=== PATIENT | female | born 1990 | race Caucasian/White ===

== ENCOUNTER 2018-07-01 11:34 | Inpatient (IN) ==
[~2018-07-01 11:34] MED LIST: NICOTINE 14 MG PATCH TOPICAL SCH
[2018-07-01] MEDS ORDERED: IOPAMIDOL 100 ML BOTTLE IV ONE (11:35)
[2018-07-01] MEDS ORDERED: MIDAZOLAM 5 MG/5 ML VIAL IV ONE (11:57)
[2018-07-01] MEDS ORDERED: DIAZEPAM 5 MG/ML VIAL IV ONE (12:01)
[2018-07-01] MEDS ORDERED: DIAZEPAM 5 MG/ML VIAL IV PRN ×3 (12:16→16:15)
--- NOTE | 2018-07-01 12:25 | Emergency Department Note ---
Alcohol HPI - General Chief Complaint: Alcohol Stated Complaint: alcohol withdrawal Time Seen by Provider: 07/01/18 11:40 Source: patient Mode of arrival: ambulatory Limitations: no limitations - History of Present Illness HPI Narrative: 28-year-old female in ED today for alcohol withdrawal. Patient states she has been a heavy drinker for at least the last year, drinking 1/5 a day hard alcohol. She did drink prior to the last year that it was not as heavy. Patient states she decided to quit drinking because she wants to be around for her children to grow up. She has a 4-year-old and a 5-year-old. Patient's last drink was 2 days ago. Patient has been vomiting. Patient has been restless and last night she was unable to sleep due to the increased pain in her abdomen. Patient states she does not a history of drug abuse. She does smoke cigarettes. Patient states she is allergic to Toradol and Sumatriptan and does not currently take medications other than [id number] Benadryl recently. Patient states she has had pancreatitis in October 2017. MD complaint: alcohol withdrawal Last Drink: days (ago) (2) Chronic Alcohol Use: Yes (1/5 per day for last year) Previous Visits for Alcohol Intoxication?: No Recent Trauma: No Associated symptoms: Reports: nausea, vomiting, tremors, abdominal pain Treatments prior to arrival: other (Benadryl) - Related Data Home Medications Medication Instructions Recorded Confirmed Gabapentin 06/28/18 Allergies Allergy/AdvReac Type Severity Reaction Status Date / Time Blueberry Allergy Severe Anaphylaxis Verified 07/01/18 11:39 tramadol Allergy Severe Dizziness Verified 07/01/18 11:39 sumatriptan [From Imitrex] Allergy Verified 07/01/18 11:39 Review of Systems Constitutional: Reports: chills. Denies: fever, weakness Eyes: Denies: eye pain, eye discharge ENT ED: Denies: ear pain, throat pain, dental pain, congestion Cardiovascular: Reports: palpitations. Denies: chest pain, edema Respiratory: Denies: shortness of breath, cough, wheezes Gastrointestinal: Reports: abdominal pain, nausea, vomiting. Denies: diarrhea, constipation Genitourinary: Denies: dysuria, urgency Musculoskeletal: Reports: back pain. Denies: joint swelling, joint pain Integumentary: Denies: rash, lesions, change in color Neurological: Denies: headache, weakness, numbness Psychiatric: Reports: anxiety, depression Endocrine: Denies: fatigue, polydipsia Hematological/Lymphatic: Reports: easy bruising. Denies: easy bleeding, lymphadenopathy Allergic/Immunologic: Denies: facial swelling, urticaria Past Medical History - Past Medical History Medical history: Reports: migraine, other (pancreatitis (Oct 2017).). Denies: cancer, DM, hypertension Surgical history ED: Reports: no surgical history - Social History smoking status: Current every day smoker Alcohol use: Reports: Heavy, Recent Drug use: Reports: none Physical Exam Limitations: no limitations General appearance: alert, anxious, in distress Head: atraumatic, normocephalic, normal inspection Eye: Present: normal appearance, PERRL. Absent: conjunctival injection ENT: normal exam, normal oropharynx, mucous membranes moist, TM's normal bilaterally, normal external ear exam Neck: Present: normal inspection, full ROM. Absent: tenderness, meningismus, lymphadenopathy Chest: Present: normal inspection, symmetric chest wall rise. Absent: tenderness Respiratory: Present: normal lung sounds bilaterally. Absent: respiratory distress, rales/crackles, wheezes Cardiovascular: Present: tachycardia. Absent: systolic murmur, diastolic murmur Abdominal: Present: soft, distention, tenderness (periumbilical suprapubic), diminished bowel sounds. Absent: guarding, rebound, rigidity Abdominal tenderness: Present: suprapubic, amber umbilical Extremities: Present: normal inspection. Absent: tenderness Back: Present: normal inspection, tenderness, CVA tenderness (R), CVA tenderness (L) Neurological: Present: alert, oriented X3, normal gait Psychiatric: Present: normal affect, normal mood, agitated, anxious. Absent: depressed Skin: Present: warm, dry, intact, normal color, other (slightly jaundice with small bruises multiple stages all over). Absent: cyanosis, diaphoresis, erythema Course Vital Signs Temperature 97.2 F 07/01/18 11:36 Pulse Rate 148 H 07/01/18 11:36 Respiratory Rate 24 H 07/01/18 11:36 Blood Pressure 140/88 07/01/18 11:36 Pulse Oximetry (%) 100 07/01/18 11:36 Temperature 97.2 F 07/01/18 11:36 Pulse Rate 118 H 10/09/18 15:15 Respiratory Rate 21 07/01/18 15:15 Blood Pressure 155/98 07/01/18 15:15 Pulse Oximetry (%) 100 07/01/18 15:15 Alcohol - MDM Narrative Medical decision making narrative: Upon patient arrival administered 1000 ml normal saline bolus along with diazepam 5-10 mg every 5-10 minutes until she reached decreased psychomotor tremors, she received total of 25 mg and then switched to 1 mg Ativan which helped getting control of symptoms. Patient also received Zofran for nausea. Patient continued to express need for pain relief of abdominal pain and requested pain medication. Provided 0.5 mg hydromorphone and this was adequate control. Total 2000 mL normal saline administered and third bag hung prior to admission to the floor. Consulted Dr. Rosas on patient's labs and current history, Dr. Rosas advised CT abdomen with IV contrast. Dr. Capps consulted on admissions intently accepted patient. - Lab Data Lab results reviewed: Yes I reviewed the patient's lab results. Result diagrams: 07/01/18 12:18 07/01/18 12:18 Lab Results 07/01/18 07/01/18 07/01/18 Range/Units 12:17 12:17 12:18 WBC 6.1 (4.5-11.0) K/mcL RBC 4.34 (4.00-5.20) M/mcL Hgb 15.6 H (12.0-15.0) g/dL Hct 46.2 (36.0-48.0) % MCV 106.4 H (80.0-100.0) fL MCH 35.9 H (26.0-34.0) pg MCHC 33.8 (31.0-36.0) g/dL RDW 14.6 H (11.5-14.5) % Plt Count 117 L (140-440) K/mcL MPV 8.1 (7.4-10.4) fL Gran % 76.6 (38.0-78.0) % Lymph % (Auto) 12.5 L (15.5-49.0) % [place] % (Auto) 10.6 (1.0-12.0) % Eos % (Auto) 0.2 (0.0-7.0) % Baso % (Auto) 0.1 (0.0-2.0) % Gran # 4.6 (1.8-8.0) K/mcL Lymph # (Auto) 0.8 L (1.5-4.8) K/mcL [place] # (Auto) 0.6 (0.1-0.9) K/mcL Eos # (Auto) 0 (0.0-0.7) K/mcL Baso # (Auto) 0 (0.0-0.3) K/mcL PT 13.6 (11.9-14.5) sec INR 1.0 (0.9-1.1) VBG Lactic Acid (0.5-2.2) mmol/L Sodium (133-145) mmol/L Potassium (3.3-5.1) mmol/L Chloride (96-108) mmol/L Carbon Dioxide (22-30) mmol/L Anion Gap (8-16) BUN (6-20) mg/dl Creatinine (0.6-1.1) mg/dl GFR Calculation Glucose (70-105) mg/dL Osmolality (280-300) mOSM/kg Calcium (8.6-10.4) mg/dl Phosphorus (2.7-4.5) mg/dL Magnesium (1.6-2.5) mg/dL Total Bilirubin (0.0-1.0) mg/dL AST (0-37) U/l ALT Alkaline Phosphatase Total Creatine Kinase (24-170) IU/L CK-MB (CK-2) (0-2.9) ng/ml Troponin T < 0.01 (0-0.03) ng/ml Total Protein (5.9-8.4) gm/dL Albumin (3.2-5.2) gm/dL Globulin (2.2-3.7) gm/dL Albumin/Globulin Ratio (1.0-2.3) Amylase (28-100) U/L Lipase (7-60) U/L Urine Color Urine Appearance Urine pH (5.0-9.0) Ur Specific [place] (1.000-1.035) Urine Protein (NEG) mg/dL Urine Glucose (UA) (NEG) mg/dL Urine Ketones (NEG) mg/dL Urine Occult Blood (<0.03) mg/dL Urine Nitrate (NEG) Urine Bilirubin (NEG) mg/dL Urine Urobilinogen (NEG) mg/dL Ur Leukocyte Esterase (NEG) /uL Urine RBC (0-1) /hpf Urine WBC (0-4) /hpf Ur Squamous Epith Cells (0-4) /hpf Urine Bacteria (0) /hpf Hyaline Casts (0-2) /lpf Urine Mucus (0) /hpf Ur Culture Indicated? Urine Opiates Screen (NONDETECTED) Ur Oxycodone Screen (NONDETECTED) Urine Methadone Screen (NONDETECTED) Ur Barbiturates Screen (NONDETECTED) Ur Phencyclidine Scrn (NONDETECTED) Ur Amphetamines Screen (NONDETECTED) U Benzodiazepines Scrn (NONDETECTED) Urine Cocaine Screen (NONDETECTED) U Marijuana (THC) Screen (NONDETECTED) 07/01/18 07/01/18 07/01/18 Range/Units 12:18 12:18 13:46 WBC (4.5-11.0) K/mcL RBC (4.00-5.20) M/mcL Hgb (12.0-15.0) g/dL Hct (36.0-48.0) % MCV (80.0-100.0) fL MCH (26.0-34.0) pg MCHC (31.0-36.0) g/dL RDW (11.5-14.5) % Plt Count (140-440) K/mcL MPV (7.4-10.4) fL Gran % (38.0-78.0) % Lymph % (Auto) (15.5-49.0) % [place] % (Auto) (1.0-12.0) % Eos % (Auto) (0.0-7.0) % Baso % (Auto) (0.0-2.0) % Gran # (1.8-8.0) K/mcL Lymph # (Auto) (1.5-4.8) K/mcL [place] # (Auto) (0.1-0.9) K/mcL Eos # (Auto) (0.0-0.7) K/mcL Baso # (Auto) (0.0-0.3) K/mcL PT (11.9-14.5) sec INR (0.9-1.1) VBG Lactic Acid (0.5-2.2) mmol/L Sodium 130 L (133-145) mmol/L Potassium 4.4 (3.3-5.1) mmol/L Chloride 87 L (96-108) mmol/L Carbon Dioxide 7 L* (22-30) mmol/L Anion Gap 36.0 H (8-16) BUN 8 (6-20) mg/dl Creatinine 0.8 (0.6-1.1) mg/dl GFR Calculation 100 Glucose 139 H (70-105) mg/dL Osmolality 291 (280-300) mOSM/kg Calcium 10.0 (8.6-10.4) mg/dl Phosphorus 1.1 L (2.7-4.5) mg/dL Magnesium 1.8 (1.6-2.5) mg/dL Total Bilirubin 1.3 H (0.0-1.0) mg/dL AST 307 H (0-37) U/l ALT TNP 139 H Alkaline Phosphatase TNP 131 H Total Creatine Kinase 57 (24-170) IU/L CK-MB (CK-2) 1.4 (0-2.9) ng/ml Troponin T (0-0.03) ng/ml Total Protein 9.4 H (5.9-8.4) gm/dL Albumin 5.7 H (3.2-5.2) gm/dL Globulin 3.7 (2.2-3.7) gm/dL Albumin/Globulin Ratio 1.5 (1.0-2.3) Amylase 117 H (28-100) U/L Lipase 512 H (7-60) U/L Urine Color Urine Appearance Urine pH (5.0-9.0) Ur Specific [place] (1.000-1.035) Urine Protein (NEG) mg/dL Urine Glucose (UA) (NEG) mg/dL Urine Ketones (NEG) mg/dL Urine Occult Blood (<0.03) mg/dL Urine Nitrate (NEG) Urine Bilirubin (NEG) mg/dL Urine Urobilinogen (NEG) mg/dL Ur Leukocyte Esterase (NEG) /uL Urine RBC (0-1) /hpf Urine WBC (0-4) /hpf Ur Squamous Epith Cells (0-4) /hpf Urine Bacteria (0) /hpf Hyaline Casts (0-2) /lpf Urine Mucus (0) /hpf Ur Culture Indicated? Urine Opiates Screen (NONDETECTED) Ur Oxycodone Screen (NONDETECTED) Urine Methadone Screen (NONDETECTED) Ur Barbiturates Screen (NONDETECTED) Ur Phencyclidine Scrn (NONDETECTED) Ur Amphetamines Screen (NONDETECTED) U Benzodiazepines Scrn (NONDETECTED) Urine Cocaine Screen (NONDETECTED) U Marijuana (THC) Screen (NONDETECTED) 07/01/18 07/01/18 07/01/18 Range/Units 13:54 13:57 13:57 WBC (4.5-11.0) K/mcL RBC (4.00-5.20) M/mcL Hgb (12.0-15.0) g/dL Hct (36.0-48.0) % MCV (80.0-100.0) fL MCH (26.0-34.0) pg MCHC (31.0-36.0) g/dL RDW (11.5-14.5) % Plt Count (140-440) K/mcL MPV (7.4-10.4) fL Gran % (38.0-78.0) % Lymph % (Auto) (15.5-49.0) % [place] % (Auto) (1.0-12.0) % Eos % (Auto) (0.0-7.0) % Baso % (Auto) (0.0-2.0) % Gran # (1.8-8.0) K/mcL Lymph # (Auto) (1.5-4.8) K/mcL [place] # (Auto) (0.1-0.9) K/mcL Eos # (Auto) (0.0-0.7) K/mcL Baso # (Auto) (0.0-0.3) K/mcL PT (11.9-14.5) sec INR (0.9-1.1) VBG Lactic Acid 0.8 (0.5-2.2) mmol/L Sodium (133-145) mmol/L Potassium (3.3-5.1) mmol/L Chloride (96-108) mmol/L Carbon Dioxide (22-30) mmol/L Anion Gap (8-16) BUN (6-20) mg/dl Creatinine (0.6-1.1) mg/dl GFR Calculation Glucose (70-105) mg/dL Osmolality (280-300) mOSM/kg Calcium (8.6-10.4) mg/dl Phosphorus (2.7-4.5) mg/dL Magnesium (1.6-2.5) mg/dL Total Bilirubin (0.0-1.0) mg/dL AST (0-37) U/l ALT Alkaline Phosphatase Total Creatine Kinase (24-170) IU/L CK-MB (CK-2) (0-2.9) ng/ml Troponin T (0-0.03) ng/ml Total Protein (5.9-8.4) gm/dL Albumin (3.2-5.2) gm/dL Globulin (2.2-3.7) gm/dL Albumin/Globulin Ratio (1.0-2.3) Amylase (28-100) U/L Lipase (7-60) U/L Urine Color Yellow Urine Appearance Clear Urine pH 6.0 (5.0-9.0) Ur Specific [place] 1.011 (1.000-1.035) Urine Protein 100 A (NEG) mg/dL Urine Glucose (UA) Negative (NEG) mg/dL Urine Ketones 80 A (NEG) mg/dL Urine Occult Blood 0.2 A (<0.03) mg/dL Urine Nitrate Neg (NEG) Urine Bilirubin Neg (NEG) mg/dL Urine Urobilinogen Neg (NEG) mg/dL Ur Leukocyte Esterase Neg (NEG) /uL Urine RBC 9 H (0-1) /hpf Urine WBC 1 (0-4) /hpf Ur Squamous Epith Cells 2 (0-4) /hpf Urine Bacteria 0 (0) /hpf Hyaline Casts 12 H (0-2) /lpf Urine Mucus Few (0) /hpf Ur Culture Indicated? No Urine Opiates Screen None detected (NONDETECTED) Ur Oxycodone Screen None detected (NONDETECTED) Urine Methadone Screen None detected (NONDETECTED) Ur Barbiturates Screen None detected (NONDETECTED) Ur Phencyclidine Scrn None detected (NONDETECTED) Ur Amphetamines Screen None detected (NONDETECTED) U Benzodiazepines Scrn None detected (NONDETECTED) Urine Cocaine Screen None detected (NONDETECTED) U Marijuana (THC) Screen None detected (NONDETECTED) - Radiology Data Radiology results reviewed: Yes I reviewed the patient's radiology results. Abdominal US- Mildly enlarged, hyperechoic liver compatible fatty change or other diffuse hepatocellular process. Gallbladder, bile ducts and pancreas are normal Abdominal CT with IV contrast- 1. Pancreas is unremarkable - no evidence of pancreatitis 2. Moderate hepatomegaly with diffuse fatty change. The infrahepatic IVC and proximal hepatic veins are narrowed on today's study which may indicate evolvement from alcoholic hepatitis to cirrhosis. - EKG Data EKG attestation: Yes I reviewed and interpreted this EKG. EKG shows normal: sinus rhythm Rate: tachycardia [place]/QRS: normal Disposition Pt seen by B[employer]K T[employer] DRIVER/PA only: No ([employer]) Clinical Impression: Alcohol withdrawal syndrome, Alcoholic hepatitis without ascites Disposition: Xfer As Inpt ([facility]) Condition: Fair Time of Disposition: 15:24
[2018-07-01] MEDS: DIAZEPAM 5 MG/ML VIAL IV PRN ×5 (12:27→17:13)
[2018-07-01] MEDS ORDERED: 0.9 % SODIUM CHLORIDE 1,000 ML IV ONE ×2 (12:36→13:45)
[2018-07-01 12:44] LABS: Basophils # (Auto) 0 K/mcL (0.0-0.3); Basophils % (Auto) 0.1 % (0.0-2.0); Eosinophils # (Auto) 0 K/mcL (0.0-0.7); Eosinophils % (Auto) 0.2 % (0.0-7.0); Granulocytes % (Auto) 76.6 % (38.0-78.0); Lymphocytes # (Auto) 0.8 K/mcL (1.5-4.8); Lymphocytes % (Auto) 12.5 % (15.5-49.0); Mean Cell Volume 106.4 fL (80.0-100.0); Mean Corpuscular HGB Conc 33.8 g/dL (31.0-36.0); Mean Corpuscular Hemoglobin 35.9 pg (26.0-34.0); Monocytes # (Auto) 0.6 K/mcL (0.1-0.9); Monocytes % (Auto) 10.6 % (1.0-12.0); Platelet Count 117 K/mcL (140-440); RBC 4.34 M/mcL (4.00-5.20); Red Cell Distribution Width 14.6 % (11.5-14.5)
[2018-07-01] MEDS ORDERED: ONDANSETRON 4 MG/2 ML VIAL IV ONE ×2 (13:03→13:41)
[2018-07-01 13:07] LABS: Creatine Kinase MB 1.4 ng/ml (0-2.9)
[2018-07-01 13:26] LABS: Albumin 5.7 gm/dL (3.2-5.2); Albumin/Globulin Ratio 1.5 (1.0-2.3); Amylase 117 U/L (28-100); Blood Urea Nitrogen 8 mg/dl (6-20); Creatine Kinase 57 IU/L (24-170); Lipase 512 U/L (7-60)
[2018-07-01] MEDS ORDERED: LORazepam 2 MG/ML VIAL IV ONE (13:41)
[2018-07-01] MEDS ORDERED: HYDROmorphone 2 MG/ML VIAL IV ONE (14:05)
--- NOTE | 2018-07-01 14:36 | XRay Report ---
CLINICAL INFORMATION: Alcohol withdrawal COMPARISON: None. FINDINGS: The heart size, mediastinum and pulmonary vessels are unremarkable. The lungs are clear. There are no effusions. The bones and soft tissues are within normal limits. IMPRESSION: Normal chest. Interpreted and Authenticated by: Messi Carey 07/01/18
--- NOTE | 2018-07-01 14:38 | Ultrasound Report ---
CLINICAL INFORMATION: Alcohol use COMPARISON: Abdomen and pelvic CT to three 2018 FINDINGS: Mild hepatomegaly noted within the liver measuring 18 x 17 cm. Liver is diffusely hyperechoic compatible with fatty change. No focal hepatic lesions. The gallbladder and bile ducts are normal - CBD is 4 mm. The pancreas is unremarkable. IMPRESSION: Mildly enlarged, hyperechoic liver compatible fatty change or other diffuse hepatocellular process. Gallbladder, bile ducts and pancreas are normal Interpreted and Authenticated by: Messi Carey 07/01/18
--- NOTE | 2018-07-01 14:39 | Internal Med History&Physical ---
Medical - H&P: HPI Patient information: Note initiated : 07/01/18 at 2:35 pm Service Date, if different from initiated Date: [] Patient: Leanne Turcios a 28 y/o F admitted on for Alcohol Withdrawl. Chief Complaint: [] History of present illness: Ms. Turcios is a 28 year old F With a history of alcohol abuse who reports quitting about 2 days ago. Prior to that she had been drinking about 1/5 of hard liquor daily. She realized that if she continue drinking that way she would likely not live to see her children grow up. She stopped several days ago and the next day she started feeling shaky, agitated she had fevers chills palpitations described as racing heart rash that she developed nausea vomiting abdominal pain which was a severe throbbing pain radiating around to the back. Vomitus was bile colored. She is been unable to sleep. Patient seen in the ER evaluated for alcohol withdrawal felt to have pancreatitis and workup had electrolyte abnormalities associated with her condition. Was given several boluses of IV fluids benzodiazepines and pain control. She also reports having episode of pancreatitis in October of this year. She has been unable to keep anything down for the past couple days as far as food and drink. Review of Systems: Positive for nausea vomiting fever chills agitation racing heart nausea vomiting , abdominal pain. Negative for chest pain shortness of breath diarrhea constipation remaining 10 point review of systems reviewed negative Medical - H&P: PMH Medical history: History of migraines and tobacco abuse Surgical history: None Pertinent family history: Mother had psychiatric conditions Father's history is unknown per patient Social history: Patient smokes half pack of cigarettes per day Has been drinking 1/5 of hard alcohol daily Smokes marijuana on occasion Lives with dad currently Medical - H&P: Meds Home Medications Medication Instructions Recorded Confirmed Type Gabapentin 06/28/18 History Allergies Allergy/AdvReac Type Severity Reaction Status Date / Time Blueberry Allergy Severe Anaphylaxis Verified 07/01/18 11:39 tramadol Allergy Severe Dizziness Verified 07/01/18 11:39 sumatriptan [From Imitrex] Allergy Verified 07/01/18 11:39 Medical - H&P: Exam - Constitutional Vitals: Temp Pulse Resp BP Pulse Ox 97.2 F 110 H 14 131/100 100 07/01/18 11:36 07/01/18 14:22 07/01/18 13:46 07/01/18 13:46 07/01/18 14:22 Medical - H&P: Reslt - Labs CBC & Chem 7: 07/01/18 12:18 07/01/18 12:18 Labs: Short CBC 07/01/18 Range/Units 12:18 WBC 6.1 (4.5-11.0) K/mcL Hgb 15.6 H (12.0-15.0) g/dL Hct 46.2 (36.0-48.0) % Plt Count 117 L (140-440) K/mcL BMP 07/01/18 12:18 Sodium 130 L Potassium 4.4 Chloride 87 L Carbon Dioxide 7 L* BUN 8 Creatinine 0.8 Glucose 139 H Calcium 10.0 Cardiac Enzymes 07/01/18 07/01/18 Range/Units 12:17 12:18 Total Creatine Kinase 57 (24-170) IU/L CK-MB (CK-2) 1.4 (0-2.9) ng/ml Troponin T < 0.01 (0-0.03) ng/ml Liver Function 07/01/18 Range/Units 12:18 Total Bilirubin 1.3 H (0.0-1.0) mg/dL AST 307 H (0-37) U/l ALT TNP Alkaline Phosphatase TNP Albumin 5.7 H (3.2-5.2) gm/dL - EKG Data Interpretation: other (Tachycardia) Medical - H&P: A/P - Narrative A/P Narrative: A: *Alcohol abuse with withdrawal: *Acute pancreatitis: Secondary to above *Anion gap metabolic acidosis: Likely related to alcohol intoxication and alcoholic ketoacidosis *Hyponatremia: Secondary to volume loss and *Likely alcoholic hepatitis *Tobacco abuse * * P: -Aggressive IV fluid hydration -CIWA protocol and as needed benzodiazepines with scheduled taper, vitamins -Pain control and antiemetics -N.p.o. at this time -Case management for assistance in programs with alcohol abuse - -Smoking cessation counseling -ppx: Lovenox
[2018-07-01 14:43] LABS: ALT/SGPT 139 U/l (0-40); Alkaline Phosphatase 131 U/L (39-117)
[2018-07-01] MEDS ORDERED: ACETAMINOPHEN W/CODEINE #3 1 TABLET PO PRN ×2 (14:43→16:15)
[2018-07-01] MEDS ORDERED: PROMETHAZINE 25 MG TABLET PO PRN ×2 (14:43→16:15)
[2018-07-01] MEDS ORDERED: SENNOSIDES 1 TABLET PO PRN ×2 (14:43→16:15)
[2018-07-01] MEDS ORDERED: PROCHLORPERAZINE 25 MG SUPP.RECT PR PRN ×2 (14:43→16:15)
[2018-07-01] MEDS ORDERED: ONDANSETRON 4 MG/2 ML VIAL IV PRN ×2 (14:43→16:15)
[2018-07-01] MEDS ORDERED: 0.9 % SODIUM CHLORIDE 1,000 ML IV SCH (14:45)
[2018-07-01] MEDS ORDERED: chlordiazePOXIDE 25 MG CAPSULE PO PRN ×2 (14:47→16:15)
[2018-07-01] MEDS ORDERED: cloNIDine HCL 0.1 MG TABLET PO PRN ×2 (14:47→16:15)
[2018-07-01] MEDS ORDERED: LORazepam 2 MG/ML VIAL IV PRN ×2 (14:49→16:15)
[2018-07-01 14:51] LABS: Amphetamine Screen,Urine NONE DETECTED (NONDETECTED); Benzodiazepines Screen,Urine NONE DETECTED (NONDETECTED); Cocaine Screen,Urine NONE DETECTED (NONDETECTED); Opiate Screen,Urine NONE DETECTED (NONDETECTED); Oxycodone, Urine Screen NONE DETECTED (NONDETECTED)
[2018-07-01] MEDS ORDERED: HYDROmorphone 2 MG/ML VIAL IV PRN (14:51)
--- NOTE | 2018-07-01 14:56 | Cat Scan Report ---
CLINICAL INFORMATION: Alcohol withdrawal abdominal pain COMPARISON: Abdomen and pelvic CT from eight months prior S2-3 2018 TECHNIQUE: Following enteric contrast, 80 cc of Isovue-300 were injected intravenously, and 60 seconds later, 0.625 mm helical slices were obtained from the mid heart through the subtrochanteric regions. Following reconstruction, 2.5 mm sagittal, coronal and axial reformatted images were processed and reviewed at bone, lung and soft tissue windows. Five minutes later, 0.625 mm helical slices were obtained from the mid heart through the kidneys and viewed at soft tissue windows.The exam was performed using radiation dose optimization techniques including, but not limited to, automated exposure control, adjustment of the mA and/or kV according to patient size and use of iterative reconstruction technique. FINDINGS: Lung bases show no abnormality - no effusion. The visualized heart is normal. Images through the liver show moderate hepatomegaly with marked diffuse fatty infiltration the liver. No focal pattern lesions; however, there is marked constriction of the infrahepatic IVC and narrowing of all proximal hepatic veins. This may be an indication of early cirrhosis resulting in extrinsic venous compression.. The portal veins are normal in caliber and contour and are well opacified - no varices Both kidneys, adrenal glands, spleen pancreas and aorta including aortic branches are normal in size configuration and attenuation without focal lesion. No ascites. No free air or adenopathy. Images through the pelvis show uterus is normal in size and configuration. The region of the ovaries are normal. The urinary bladder is remarkable. Bone windows show no osseous abnormality IMPRESSION: 1. Pancreas is unremarkable - no evidence of pancreatitis 2. Moderate hepatomegaly with diffuse fatty change. The infrahepatic IVC and proximal hepatic veins are narrowed on today's study which may indicate evolvement from alcoholic hepatitis to cirrhosis. Interpreted and Authenticated by: Messi Carey 07/01/18
[2018-07-01] MEDS ORDERED: LORazepam 2 MG/ML VIAL IV SCH ×2 (15:00→16:15)
[2018-07-01 15:05] LABS: Appearance,Urine CLEAR; Bacteria,Urine 0 /hpf (0); Bilirubin,Urine NEG (NEG); Color,Urine YELLOW; Glucose,Urine (UA) NEGATIVE (NEG); Leukocyte Esterase,Urine NEG /uL (NEG); Mucus,Urine FEW /hpf (0); Protein,Urine 100 mg/dL (NEG); Specific Gravity,Urine 1.011 (1.000-1.035); Urine Blood 0.2 mg/dL (<0.03); Urine Hyaline Cast 12 /lpf (0-2); Urine RBC 9 /hpf (0-1); Urine Squamous Epithelial Cell 2 /hpf (0-4); Urine WBC 1 /hpf (0-4); Urobilinogen,Urine NEG (NEG)
[2018-07-01] MEDS: 0.9 % SODIUM CHLORIDE 1,000 ML IV SCH ×2 (16:38→19:21)
[2018-07-01] MEDS: HYDROmorphone 2 MG/ML VIAL IV PRN ×2 (17:32→21:00)
[2018-07-01] MEDS ORDERED: DOCUSATE SODIUM 100 MG CAPSULE PO SCH (21:00)
[2018-07-01] MEDS ORDERED: FAMOTIDINE 20 MG TABLET PO SCH (21:00)
[2018-07-01] MEDS: 0.9 % SODIUM CHLORIDE 10 ML SYRINGE IV SCH ×2 (21:12)
[2018-07-01] MEDS: DOCUSATE SODIUM 100 MG CAPSULE PO SCH (21:12)
[2018-07-01] MEDS: FAMOTIDINE 20 MG TABLET PO SCH (21:12)
[2018-07-01] MEDS ORDERED: 0.9 % SODIUM CHLORIDE 10 ML SYRINGE IV SCH ×2 (22:00)
[2018-07-02] MEDS: 0.9 % SODIUM CHLORIDE 1,000 ML IV SCH ×2 (01:00→08:20)
[2018-07-02 04:16] LABS: Basophils # (Auto) 0 K/mcL (0.0-0.3); Basophils % (Auto) 0.4 % (0.0-2.0); Eosinophils # (Auto) 0 K/mcL (0.0-0.7); Eosinophils % (Auto) 1.6 % (0.0-7.0); Granulocytes % (Auto) 68.9 % (38.0-78.0); Lymphocytes # (Auto) 0.5 K/mcL (1.5-4.8); Lymphocytes % (Auto) 20.2 % (15.5-49.0); Mean Cell Volume 106.2 fL (80.0-100.0); Mean Corpuscular Hemoglobin 36.2 pg (26.0-34.0); Monocytes # (Auto) 0.2 K/mcL (0.1-0.9); Monocytes % (Auto) 8.9 % (1.0-12.0); Platelet Count 68 K/mcL (140-440); RBC 3.27 M/mcL (4.00-5.20); Red Cell Distribution Width 14.7 % (11.5-14.5)
[2018-07-02 04:36] LABS: ALT/SGPT 127 U/l (0-40); Albumin 3.9 gm/dL (3.2-5.2); Albumin/Globulin Ratio 1.7 (1.0-2.3); Alkaline Phosphatase 105 U/L (39-117); Bilirubin,Direct 0.4 mg/dL (0.0-0.3); Blood Urea Nitrogen 2 mg/dl (6-20); Gamma Glutamyl Transpeptidase 847 U/L (5-36); Uric Acid 6.7 mg/dL (2.5-8.0)
[2018-07-02] MEDS: 0.9 % SODIUM CHLORIDE 10 ML SYRINGE IV SCH ×6 (05:26→21:10)
[2018-07-02] MEDS: HYDROmorphone 2 MG/ML VIAL IV PRN ×5 (05:34→21:03)
--- NOTE | 2018-07-02 07:54 | Emergency Department Note ---
ED Note Addendum Note Addendum: I discussed this case with the mid-level provider and agree with her assessment and plan.
--- NOTE | 2018-07-02 08:08 | Internal Med Progress Note ---
Medical - PN: Subj Patient information: Note initiated : 07/02/18 at 7:59 am Service Date, if different from initiated Date: [] Patient: Leanne Turcios a 28 y/o F admitted on 07/01/18 for Alcohol Withdrawl. Chief Complaint: [] Interval history: Ms. Turcios is a 28 year old F With a history of alcohol abuse who reports quitting about 2 days ago. Prior to that she had been drinking about 1/5 of hard liquor daily. She realized that if she continue drinking that way she would likely not live to see her children grow up. She stopped several days ago and the next day she started feeling shaky, agitated she had fevers chills palpitations described as racing heart rash that she developed nausea vomiting abdominal pain which was a severe throbbing pain radiating around to the back. Vomitus was bile colored. She is been unable to sleep. Patient seen in the ER evaluated for alcohol withdrawal felt to have pancreatitis and workup had electrolyte abnormalities associated with her condition. Was given several boluses of IV fluids benzodiazepines and pain control. She also reports having episode of pancreatitis in October of this year. She has been unable to keep anything down for the past couple days as far as food and drink. 10 poor sleep last night, however better overall. Continues abdominal pain although with some improvement. Does have some chills. No nausea vomiting. Low CIWA score today shift. Review of Systems: denies headache/fever/chills/nausea/vomiting/chest pain/cough/dyspnea/diarrhea. Otherwise see above. - Constitutional Vitals: Vital Signs Temp Pulse Resp BP Pulse Ox 97.7 F 107 H 13 132/83 100 07/02/18 07:21 07/02/18 07:21 07/02/18 07:21 07/02/18 07:21 07/02/18 07:21 Period Temp Pulse Resp BP Sys/Epps Pulse Ox Last 24 Hr 97.2 F-97.9 F 94-148 12-25 99-155/71-115 98-100 Intake and Output 07/01/18 07/02/18 07/02/18 21:59 05:59 13:59 Intake Total 822 / 822 1000 / 1000 Output Total 800 / 800 1400 / 1400 Balance -800 / -800 -578 / -578 1000 / 1000 Weight 57.878 kg Intake & Output: Intake & Output 07/01/18 07/02/18 07/02/18 21:59 05:59 13:59 Intake Total 822 / 822 1000 / 1000 Output Total 800 / 800 1400 / 1400 Balance -800 / -800 -578 / -578 1000 / 1000 Weight 57.878 kg Intake: IV 822 / 822 1000 / 1000 Sodium Chloride 0.9% 1,000 ml @ 822 / 822 1000 / 1000 150 mls/hr IV .Q6H40M [facility] Rx#: [id number] Output: Urine Catheter Amount 400 / 400 Void Amount 400 / 400 1400 / 1400 Other: Urine Appearance Clear Clear Urine Color Dark Yellow Bright Yellow Urine Odor Normal Strong Stool Color Brown Stool Consistency Loose Exam: General: Alert, Awake, no acute distress HEENT: EOMI, neck supple CV: Mildly tachycardic but regular, No murmurs, normal s1/s2 Pulm: Clear b/l, no wheezing/rhonchi/rales Abd: soft, tender to palpate right upper/lower/epig, +BS x4 Ext: no clubbing/cyanosis/edema Neuro: Alert, no focal deficits, moves all extremities, Skin: warm/dry Medical - PN: Obj Da - Labs CBC & Chem 7: 07/02/18 03:37 07/02/18 03:37 Labs: Abnormal Lab Results 07/02/18 07/02/18 07/01/18 03:37 03:37 13:54 WBC 2.7 L RBC 3.27 L Hgb 11.8 L Hct 34.7 L MCV 106.2 H MCH 36.2 H RDW 14.7 H Plt Count 68 L Lymph % (Auto) Lymph # (Auto) 0.5 L Sodium Chloride Carbon Dioxide 12 L Anion Gap 20.0 H BUN 2 L Creatinine 0.5 L Glucose 115 H Calcium 7.7 L Phosphorus 0.9 L Total Bilirubin Direct Bilirubin 0.4 H GGT 847 H AST 247 H ALT 127 H Alkaline Phosphatase Lactate Dehydrogenase 370 H Total Protein Albumin Amylase Lipase Urine Protein 100 A Urine Ketones 80 A Urine Occult Blood 0.2 A Urine RBC 9 H Hyaline Casts 12 H 07/01/18 07/01/18 07/01/18 13:46 12:18 12:18 WBC RBC Hgb Hct MCV MCH RDW Plt Count Lymph % (Auto) Lymph # (Auto) Sodium Chloride Carbon Dioxide Anion Gap BUN Creatinine Glucose Calcium Phosphorus 1.1 L Total Bilirubin Direct Bilirubin GGT AST ALT 139 H Alkaline Phosphatase 131 H Lactate Dehydrogenase 395 H Total Protein Albumin Amylase Lipase Urine Protein Urine Ketones Urine Occult Blood Urine RBC Hyaline Casts 07/01/18 07/01/18 12:18 12:18 WBC RBC Hgb 15.6 H Hct MCV 106.4 H MCH 35.9 H RDW 14.6 H Plt Count 117 L Lymph % (Auto) 12.5 L Lymph # (Auto) 0.8 L Sodium 130 L Chloride 87 L Carbon Dioxide 7 L* Anion Gap 36.0 H BUN Creatinine Glucose 139 H Calcium Phosphorus Total Bilirubin 1.3 H Direct Bilirubin GGT AST 307 H ALT Alkaline Phosphatase Lactate Dehydrogenase Total Protein 9.4 H Albumin 5.7 H Amylase 117 H Lipase 512 H Urine Protein Urine Ketones Urine Occult Blood Urine RBC Hyaline Casts Meds: Medications Acetaminophen/Codeine Phosphate (Tylenol #3) 1 tab PO Q4HP PRN PRN Reason: PAIN LEVEL 3-6 Chlordiazepoxide HCl (Librium) 50 mg PO Q4HP PRN PRN Reason: Alcohol Withdrawal Clonidine HCl (Catapres) 0.1 mg PO Q4HP PRN PRN Reason: Alcohol Withdrawal Docusate Sodium (Colace) 100 mg PO BID [facility] Last Admin: 07/01/18 21:12 Dose: Not Given Enoxaparin Sodium (Lovenox) 40 mg SQ DAILY [facility] Famotidine (Pepcid) 20 mg PO BID [facility] Last Admin: 07/01/18 21:12 Dose: Not Given Folic Acid (Folic Acid) 1 mg PO DAILY [facility] Hydromorphone HCl (Dilaudid) 0.5 mg IV Q2HP PRN PRN Reason: PAIN LEVEL > 6 Last Admin: 07/02/18 05:34 Dose: 0.5 mg Sodium Chloride (Sodium Chloride 0.9%) 1,000 mls @ 150 mls/hr IV .Q6H40M [facility] Stop: 07/02/18 10:44 Last Infusion: 07/02/18 07:45 Dose: Infused Thiamine HCl 100 mg/ Sodium (Chloride) 51 mls @ 50 mls/hr IV DAILY [facility] Iron Carb/Multivit/[employer]/Folic Acid (Multivitamin W/Minerals) 1 tab PO DAILY [facility] Lorazepam (Ativan) 1 mg IV Q4HP PRN PRN Reason: ANXIETY/SEDATION Last Admin: 07/01/18 23:20 Dose: 1 mg Lorazepam (Ativan) 1 mg IV Q4HP [facility]; Protocol Stop: 07/06/18 15:01 Last Admin: 07/01/18 20:47 Dose: 1 mg Nicotine (Nicoderm) 14 mg TOPICAL DAILY@1000 [facility] Last Admin: 07/01/18 17:32 Dose: 14 mg Ondansetron HCl (Zofran) 4 mg IV Q4HP PRN PRN Reason: Nausea And Vomiting Prochlorperazine Maleate (Compazine) 12.5 mg AR Q12HP PRN PRN Reason: Nausea And Vomiting Promethazine HCl (Phenergan) 12.5 mg PO Q6HP PRN PRN Reason: Nausea And Vomiting Senna (Senokot) 2 tab PO HSP PRN PRN Reason: Constipation Sodium Chloride (Saline Flush) 10 ml IV Q8 [facility] Last Admin: 07/02/18 05:26 Dose: 10 ml Sodium Chloride (Saline Flush) 10 ml IV Q8 [facility] Last Admin: 07/02/18 05:26 Dose: Not Given Medical - PN: A/P - Time Spent With Patient Total time spent is greater than 50% in coordination of care (as documented) at patient's floor/unit and/or counseling patient: - Narrative A/P Narrative: A: *Alcohol abuse w/withdrawal: *Acute pancreatitis: Secondary to above *Anion gap metabolic acidosis: Likely related to alcohol intoxication and alcoholic ketoacidosis -improving *etoh hepatitis: *Fatty liver: *Hyponatremia: Secondary to volume loss and *Likely alcoholic hepatitis *Tobacco abuse *Hyponatermia: resolved *Macrocytosis: 2/2 etoh chronic P: -Aggressive IV fluid hydration -CIWA protocol and as needed benzodiazepines with scheduled taper, vitamins -Pain control and antiemetics -clears as tolerated -Case management for assistance in programs with alcohol abuse - -Smoking cessation counseling -ppx: Lovenox Medical - PN: Qual - Stroke Symptom Onset Unknown: No - VTE Deep Vein Thrombosis/Pulmonary Embolism Present on Admission: No
[2018-07-02] MEDS: DOCUSATE SODIUM 100 MG CAPSULE PO SCH ×3 (08:22→20:56)
[2018-07-02] MEDS: FAMOTIDINE 20 MG TABLET PO SCH ×3 (08:23→20:56)
[2018-07-02] MEDS ORDERED: PROMETHAZINE 25 MG TABLET PO PRN (08:27)
[2018-07-02] MEDS ORDERED: ONDANSETRON 4 MG/2 ML VIAL IV PRN (08:27)
[2018-07-02] MEDS ORDERED: chlordiazePOXIDE 25 MG CAPSULE PO PRN (08:27)
[2018-07-02] MEDS ORDERED: POTASSIUM PHOSPHATE 40 MEQ in DEXTROSE 5% IN WATER 500 ML IV ONE (08:27)
[2018-07-02] MEDS ORDERED: SENNOSIDES 1 TABLET PO PRN (08:27)
[2018-07-02] MEDS ORDERED: CALCIUM GLUCONATE 4.65 MEQ in DEXTROSE 5% IN WATER 50 ML IV ONE (08:27)
[2018-07-02] MEDS ORDERED: PROCHLORPERAZINE 25 MG SUPP.RECT PR PRN (08:27)
[2018-07-02] MEDS ORDERED: 0.9 % SODIUM CHLORIDE 1,000 ML IV SCH (08:27)
[2018-07-02] MEDS ORDERED: LORazepam 2 MG/ML VIAL IV PRN (08:27)
[2018-07-02] MEDS: ENOXAPARIN 40 MG/0.4 ML SYRINGE SQ SCH (08:59)
[2018-07-02] MEDS ORDERED: MULTIVIT,THER IRON,CA,FA & MIN 1 TABLET PO SCH ×2 (09:00)
[2018-07-02] MEDS ORDERED: FOLIC ACID 1 MG TABLET PO SCH ×2 (09:00)
[2018-07-02] MEDS ORDERED: ENOXAPARIN 40 MG/0.4 ML SYRINGE SQ SCH ×2 (09:00)
[2018-07-02] MEDS ORDERED: THIAMINE 100 MG in 0.9 % SODIUM CHLORIDE 50 ML IV SCH (09:00)
[2018-07-02] MEDS: THIAMINE 100 MG in 0.9 % SODIUM CHLORIDE 50 ML IV SCH (09:00)
[2018-07-02] MEDS: NEUTRA PHOS 1 PACKET PO SCH ×2 (09:56→20:56)
[2018-07-02] MEDS: FOLIC ACID 1 MG TABLET PO SCH (09:57)
[2018-07-02] MEDS: MULTIVIT,THER IRON,CA,FA & MIN 1 TABLET PO SCH (09:57)
[2018-07-02] MEDS: NICOTINE 14 MG PATCH TOPICAL SCH (09:58)
[2018-07-02] MEDS ORDERED: NICOTINE 14 MG PATCH TOPICAL SCH ×2 (10:00)
[2018-07-02 10:14] LABS: Vitamin B12 722.8 pg/ml (232-1245)
[2018-07-02] MEDS: LORazepam 2 MG/ML VIAL IV SCH ×2 (15:27→18:52)
[2018-07-02] MEDS: cloNIDine HCL 0.1 MG TABLET PO PRN (20:56)
[2018-07-03] MEDS: cloNIDine HCL 0.1 MG TABLET PO PRN ×4 (03:57→18:24)
[2018-07-03 04:32] LABS: Basophils # (Auto) 0 K/mcL (0.0-0.3); Basophils % (Auto) 0.4 % (0.0-2.0); Eosinophils # (Auto) 0.1 K/mcL (0.0-0.7); Eosinophils % (Auto) 2.9 % (0.0-7.0); Granulocytes % (Auto) 65.9 % (38.0-78.0); Lymphocytes # (Auto) 0.7 K/mcL (1.5-4.8); Lymphocytes % (Auto) 23.3 % (15.5-49.0); Mean Cell Volume 104.2 fL (80.0-100.0); Mean Corpuscular HGB Conc 34.6 g/dL (31.0-36.0); Mean Corpuscular Hemoglobin 36.1 pg (26.0-34.0); Monocytes # (Auto) 0.2 K/mcL (0.1-0.9); Monocytes % (Auto) 7.5 % (1.0-12.0); Platelet Count 76 K/mcL (140-440); RBC 3.36 M/mcL (4.00-5.20); Red Cell Distribution Width 14.6 % (11.5-14.5)
[2018-07-03 04:58] LABS: ALT/SGPT 162 U/l (0-40); Albumin 4.1 gm/dL (3.2-5.2); Albumin/Globulin Ratio 1.5 (1.0-2.3); Alkaline Phosphatase 119 U/L (39-117); Bilirubin,Direct 0.4 mg/dL (0.0-0.3); Blood Urea Nitrogen 2 mg/dl (6-20); Gamma Glutamyl Transpeptidase 943 U/L (5-36); Uric Acid 3.9 mg/dL (2.5-8.0)
[2018-07-03] MEDS ORDERED: POTASSIUM CHLORIDE 40 MEQ in DEXTROSE 5% IN WATER 500 ML IV ONE (05:04)
[2018-07-03] MEDS ORDERED: POTASSIUM CHLORIDE 20 MEQ TABLET PO ONE (05:08)
[2018-07-03] MEDS: 0.9 % SODIUM CHLORIDE 10 ML SYRINGE IV SCH ×6 (07:19→20:37)
[2018-07-03] MEDS: HYDROmorphone 2 MG/ML VIAL IV PRN ×3 (07:57→19:01)
[2018-07-03] MEDS: DOCUSATE SODIUM 100 MG CAPSULE PO SCH ×2 (08:03→20:36)
[2018-07-03] MEDS: MULTIVIT,THER IRON,CA,FA & MIN 1 TABLET PO SCH (08:03)
[2018-07-03] MEDS: FAMOTIDINE 20 MG TABLET PO SCH ×2 (08:03→20:36)
[2018-07-03] MEDS: ENOXAPARIN 40 MG/0.4 ML SYRINGE SQ SCH (08:04)
[2018-07-03] MEDS: FOLIC ACID 1 MG TABLET PO SCH (08:04)
--- NOTE | 2018-07-03 08:06 | Internal Med Progress Note ---
Medical - PN: Subj Patient information: Note initiated : 07/03/18 at 8:01 am Service Date, if different from initiated Date: [] Patient: Leanne Turcios a 28 y/o F admitted on 07/01/18 for Alcohol Withdrawl , Acute Pancreatitis. Chief Complaint: [] Interval history: Ms. Turcios is a 28 year old F With a history of alcohol abuse who reports quitting about 2 days ago. Prior to that she had been drinking about 1/5 of hard liquor daily. She realized that if she continue drinking that way she would likely not live to see her children grow up. She stopped several days ago and the next day she started feeling shaky, agitated she had fevers chills palpitations described as racing heart rash that she developed nausea vomiting abdominal pain which was a severe throbbing pain radiating around to the back. Vomitus was bile colored. She is been unable to sleep. Patient seen in the ER evaluated for alcohol withdrawal felt to have pancreatitis and workup had electrolyte abnormalities associated with her condition. Was given several boluses of IV fluids benzodiazepines and pain control. She also reports having episode of pancreatitis in October of this year. She has been unable to keep anything down for the past couple days as far as food and drink. 07/02 poor sleep last night, however better overall. Continues abdominal pain although with some improvement. Does have some chills. No nausea vomiting. Low CIWA score today shift. 07/03 tolerating clears well, only had nausea with the potassium. has the abdominal pain with slow improvement. Review of Systems: denies headache/fever/chills/vomiting/chest pain/cough/dyspnea/diarrhea. Otherwise see above. - Constitutional Vitals: Vital Signs Temp Pulse Resp BP Pulse Ox 97.2 F 100 H 16 103/68 98 07/03/18 07:45 07/03/18 07:45 07/03/18 07:45 07/03/18 07:45 07/03/18 07:45 Period Temp Pulse Resp BP Sys/Epps Pulse Ox Last 24 Hr 97.2 F-98.4 F 90-103 16-20 103-127/68-88 98-100 Intake and Output 07/02/18 07/03/18 07/03/18 21:59 05:59 13:59 Intake Total 360 / 360 360 / 360 Output Total 850 / 850 Balance -490 / -490 360 / 360 Weight 55.565 kg Intake & Output: Intake & Output 07/02/18 07/03/18 07/03/18 21:59 05:59 13:59 Intake Total 360 / 360 360 / 360 Output Total 850 / 850 Balance -490 / -490 360 / 360 Weight 55.565 kg Intake: Oral 360 / 360 360 / 360 Output: Void Amount 850 / 850 Other: Meal Dinner Percent of Meal Consumed 75% Feeding Ability Assist with Tray Set Up Urine Color Dark Yellow Urine Odor Strong # Voids 1 Exam: General: Alert, Awake, no acute distress HEENT: EOMI, neck supple CV: Mildly tachycardic but regular, No murmurs, normal s1/s2 Pulm: Clear b/l, no wheezing/rhonchi/rales Abd: soft, tender to palpate right upper/lower quad and epig, +BS x4 Ext: no clubbing/cyanosis/edema Neuro: Alert, no focal deficits, moves all extremities, Skin: warm/dry Medical - PN: Obj Da - Labs CBC & Chem 7: 07/03/18 03:41 07/03/18 03:41 Labs: Abnormal Lab Results 07/03/18 07/03/18 07/02/18 03:41 03:41 08:37 WBC 3.0 L RBC 3.36 L Hgb Hct 35.0 L MCV 104.2 H MCH 36.1 H RDW 14.6 H Plt Count 76 L Lymph % (Auto) Lymph # (Auto) 0.7 L Sodium Potassium 2.6 L* Chloride Carbon Dioxide 20 L Anion Gap 18.0 H BUN 2 L Creatinine 0.4 L Glucose 115 H Calcium Phosphorus 1.3 L Total Bilirubin 1.1 H Direct Bilirubin 0.4 H GGT 943 H AST 244 H ALT 162 H Alkaline Phosphatase 119 H Lactate Dehydrogenase 332 H Total Protein Albumin Amylase Lipase 533 H Urine Protein Urine Ketones Urine Occult Blood Urine RBC Hyaline Casts 07/02/18 07/02/18 07/01/18 03:37 03:37 13:54 WBC 2.7 L RBC 3.27 L Hgb 11.8 L Hct 34.7 L MCV 106.2 H MCH 36.2 H RDW 14.7 H Plt Count 68 L Lymph % (Auto) Lymph # (Auto) 0.5 L Sodium Potassium Chloride Carbon Dioxide 12 L Anion Gap 20.0 H BUN 2 L Creatinine 0.5 L Glucose 115 H Calcium 7.7 L Phosphorus 0.9 L Total Bilirubin Direct Bilirubin 0.4 H GGT 847 H AST 247 H ALT 127 H Alkaline Phosphatase Lactate Dehydrogenase 370 H Total Protein Albumin Amylase Lipase Urine Protein 100 A Urine Ketones 80 A Urine Occult Blood 0.2 A Urine RBC 9 H Hyaline Casts 12 H 07/01/18 07/01/18 07/01/18 13:46 12:18 12:18 WBC RBC Hgb Hct MCV MCH RDW Plt Count Lymph % (Auto) Lymph # (Auto) Sodium Potassium Chloride Carbon Dioxide Anion Gap BUN Creatinine Glucose Calcium Phosphorus 1.1 L Total Bilirubin Direct Bilirubin GGT AST ALT 139 H Alkaline Phosphatase 131 H Lactate Dehydrogenase 395 H Total Protein Albumin Amylase Lipase Urine Protein Urine Ketones Urine Occult Blood Urine RBC Hyaline Casts 07/01/18 07/01/18 12:18 12:18 WBC RBC Hgb 15.6 H Hct MCV 106.4 H MCH 35.9 H RDW 14.6 H Plt Count 117 L Lymph % (Auto) 12.5 L Lymph # (Auto) 0.8 L Sodium 130 L Potassium Chloride 87 L Carbon Dioxide 7 L* Anion Gap 36.0 H BUN Creatinine Glucose 139 H Calcium Phosphorus Total Bilirubin 1.3 H Direct Bilirubin GGT AST 307 H ALT Alkaline Phosphatase Lactate Dehydrogenase Total Protein 9.4 H Albumin 5.7 H Amylase 117 H Lipase 512 H Urine Protein Urine Ketones Urine Occult Blood Urine RBC Hyaline Casts Meds: Medications Acetaminophen/Codeine Phosphate (Tylenol #3) 1 tab PO Q4HP PRN PRN Reason: PAIN LEVEL 3-6 Chlordiazepoxide HCl (Librium) 50 mg PO Q4HP PRN PRN Reason: Alcohol Withdrawal Clonidine HCl (Catapres) 0.1 mg PO Q4HP PRN PRN Reason: Alcohol Withdrawal Last Admin: 07/03/18 03:57 Dose: 0.1 mg Docusate Sodium (Colace) 100 mg PO BID [facility] Last Admin: 07/02/18 20:56 Dose: 100 mg Enoxaparin Sodium (Lovenox) 40 mg SQ DAILY [facility] Last Admin: 07/02/18 08:59 Dose: Not Given Famotidine (Pepcid) 20 mg PO BID [facility] Last Admin: 07/02/18 20:56 Dose: 20 mg Folic Acid (Folic Acid) 1 mg PO DAILY [facility] Last Admin: 07/02/18 09:57 Dose: 1 mg Hydromorphone HCl (Dilaudid) 0.5 mg IV Q2HP PRN PRN Reason: PAIN LEVEL > 6 Last Admin: 07/02/18 21:03 Dose: 0.5 mg Thiamine HCl 100 mg/ Sodium (Chloride) 51 mls @ 50 mls/hr IV DAILY [facility] Last Admin: 07/02/18 09:00 Dose: Not Given Potassium Chloride 40 meq/ (Dextrose) 520 mls @ 130 mls/hr IV ONCE ONE Stop: 07/03/18 09:03 Last Admin: 07/03/18 07:19 Dose: 130 mls/hr Iron Carb/Multivit/[employer]/Folic Acid (Multivitamin W/Minerals) 1 tab PO DAILY [facility] Last Admin: 07/02/18 09:57 Dose: 1 tab Lorazepam (Ativan) 1 mg IV Q4HP PRN PRN Reason: ANXIETY/SEDATION Last Admin: 07/02/18 09:57 Dose: 1 mg Lorazepam (Ativan) 1 mg IV Q4HP [facility]; Protocol Stop: 07/06/18 15:01 Last Admin: 07/02/18 18:52 Dose: 1 mg Nicotine (Nicoderm) 14 mg TOPICAL DAILY@1000 [facility] Last Admin: 07/02/18 09:58 Dose: 14 mg Ondansetron HCl (Zofran) 4 mg IV Q4HP PRN PRN Reason: Nausea And Vomiting Prochlorperazine Maleate (Compazine) 12.5 mg [place] Q12HP PRN PRN Reason: Nausea And Vomiting Promethazine HCl (Phenergan) 12.5 mg PO Q6HP PRN PRN Reason: Nausea And Vomiting Senna (Senokot) 2 tab PO HSP PRN PRN Reason: Constipation Sodium Chloride (Saline Flush) 10 ml IV Q8 [facility] Last Admin: 07/03/18 07:19 Dose: 10 ml Sodium Chloride (Saline Flush) 10 ml IV Q8 [facility] Last Admin: 07/03/18 07:19 Dose: 10 ml Medical - PN: A/P - Time Spent With Patient Total time spent is greater than 50% in coordination of care (as documented) at patient's floor/unit and/or counseling patient: - Narrative A/P Narrative: A: *Alcohol abuse w/withdrawal: improving *Acute pancreatitis: Secondary to above -GB unremarkable on u/s *Anion gap metabolic acidosis: Likely related to alcohol intoxication and alcoholic ketoacidosis -improving *etoh hepatitis: *Fatty liver: *Hyponatremia: Secondary to volume loss, improved *Hypokalemia/phos: *Alcoholic hepatitis: *Tobacco abuse: *Macrocytosis: 2/2 etoh chronic P: - -CIWA protocol and as needed benzodiazepines with scheduled taper, vitamins -Pain control and antiemetics -Diet advanced to full liquid -PRN electrolyte replaced -Case management for assistance in programs with alcohol abuse -Smoking cessation counseling -ppx: Lovenox Medical - PN: Qual - Stroke Symptom Onset Unknown: No - VTE Deep Vein Thrombosis/Pulmonary Embolism Present on Admission: No
[2018-07-03] MEDS ORDERED: POTASSIUM PHOSPHATE 40 MEQ in DEXTROSE 5% IN WATER 500 ML IV ONE (09:00)
[2018-07-03 09:18] LABS: Lipase 473 U/L (7-60)
[2018-07-03] MEDS: THIAMINE 100 MG in 0.9 % SODIUM CHLORIDE 50 ML IV SCH (10:06)
[2018-07-03] MEDS: NEUTRA PHOS 1 PACKET PO SCH ×3 (10:06→20:35)
[2018-07-03] MEDS: NICOTINE 14 MG PATCH TOPICAL SCH (10:07)
[2018-07-03] MEDS: ACETAMINOPHEN W/CODEINE #3 1 TABLET PO PRN (14:15)
--- NOTE | 2018-07-03 18:02 | Discharge Summary ---
Medical - DS: Prov Patient information: Note initiated : 07/03/18 at 6:00 pm Service Date, if different from initiated Date: [] Patient: Leanne Turcios a 28 y/o F admitted on 07/01/18 for Alcohol Withdrawl , Acute Pancreatitis. Chief Complaint: [] Date of admission: 07/01/18 16:05 Discharge date: 07/04/18 Consults: 07/01/18 14:02 Consult to Physician [CONS] Stat Comment: Consulting Provider: Matty Capps Reason For Exam: Physician to Consult Medical - DS: Meds - Discharge Medications Prescriptions: Acetaminophen W/Codeine #3 [Tylenol #3] 1 tab PO Q4HP PRN #30 tab PRN Reason: Pain Level 3-6 chlordiazePOXIDE [Librium] 25 mg PO Q8HP PRN #12 cap PRN Reason: Alcohol Withdrawal Active and Home Medications: Home Medications No Known Home Meds 07/01/18 [History Confirmed 07/01/18 Last Taken Unknown] Medical - DS: Hosp Hospital course: Ms. Turcios is a 28 year old F With a history of alcohol abuse who reports quitting about 2 days ago. Prior to that she had been drinking about 1/5 of hard liquor daily. She realized that if she continue drinking that way she would likely not live to see her children grow up. She stopped several days ago and the next day she started feeling shaky, agitated she had fevers chills palpitations described as racing heart rash that she developed nausea vomiting abdominal pain which was a severe throbbing pain radiating around to the back. Vomitus was bile colored. She is been unable to sleep. Patient seen in the ER evaluated for alcohol withdrawal felt to have pancreatitis and workup had electrolyte abnormalities associated with her condition. Was given several boluses of IV fluids benzodiazepines and pain control. She also reports having episode of pancreatitis in October of this year. She has been unable to keep anything down for the past couple days as far as food and drink. 10/ poor sleep last night, however better overall. Continues abdominal pain although with some improvement. Does have some chills. No nausea vomiting. Low CIWA score today shift. 07/03 tolerating clears well, only had nausea with the potassium. has the abdominal pain with slow improvement. 07/04 Tremors significantly improved. Slept okay. Has left upper and lower quadrant abdominal pain achy which radiates around to the back into the groin. Tolerating full liquid diet without nausea. Has soft bowel movement earlier this morning. Rested for the morning feeling better this afternoon and desiring to go home and with decreased abdominal pain. Stable for discharge counseled on alcohol cessation Discharge diagnosis: Alcohol abuse with withdrawal acute pancreatitis alcoholic hepatitis Secondary discharge diagnosis: Alcoholic ketoacidosis fatty liver hyponatremia hypokalemia hypophosphatemia back obese - Time Spent with Patient Total time spent providing and/or coordinating discharge services: Greater than 30 minutes Medical - DS: Exam - Constitutional Vitals: Vital Signs Temp Pulse Resp BP Pulse Ox 07/03/18 16:00 97.6 F 94 H 15 106/73 97 07/03/18 12:16 97.0 F 98 H 16 96/71 98 07/03/18 12:00 97.0 F 98 H 16 96/71 98 07/03/18 07:45 97.2 F 100 H 16 103/68 98 07/03/18 04:00 98.4 F 16 118/77 98 07/03/18 00:00 98.4 F 16 127/88 98 07/02/18 20:00 97.8 F 103 H 18 125/85 99 Intake and Output 07/03/18 07/03/18 07/03/18 05:59 13:59 21:59 Intake Total 360 / 360 2124 / 2124 1225.0909 / 1225.0909 Output Total 650 / 650 Balance 360 / 360 1474 / 1474 1225.0909 / 1225.0909 Intake: IV 284 / 543 674.0400 / 745.0909 Oral 360 / 360 1840 / 1840 480 / 480 Output: Void Amount 650 / 650 Other: Meal Lunch Percent of Meal Consumed 100% # Voids 1 1 Medical - DS: Data Labs on day of discharge: Labs from last 24 hours 07/03/18 07/03/18 07/03/18 08:20 03:41 03:41 WBC 3.0 L RBC 3.36 L Hgb 12.1 Hct 35.0 L MCV 104.2 H MCH 36.1 H MCHC 34.6 RDW 14.6 H Plt Count 76 L MPV 7.4 Gran % 65.9 Lymph % (Auto) 23.3 [place] % (Auto) 7.5 Eos % (Auto) 2.9 Baso % (Auto) 0.4 Gran # 2.0 Lymph # (Auto) 0.7 L [place] # (Auto) 0.2 Eos # (Auto) 0.1 Baso # (Auto) 0 Sodium 137 Potassium 2.6 L* Chloride 99 Carbon Dioxide 20 L Anion Gap 18.0 H BUN 2 L Creatinine 0.4 L GFR Calculation 142 Glucose 115 H Uric Acid 3.9 Calcium 9.0 Phosphorus 1.3 L Magnesium 1.7 Total Bilirubin 1.1 H Direct Bilirubin 0.4 H GGT 943 H AST 244 H ALT 162 H Alkaline Phosphatase 119 H Lactate Dehydrogenase 332 H Total Protein 6.8 Albumin 4.1 Globulin 2.7 Albumin/Globulin Ratio 1.5 Triglycerides 74 Lipase 473 H Medical - DS: A/P - Patient/Caregiver Discharge Instructions Activity: increase activity as tolerated Diet: Full Liquid (Advance as tolerated) - Follow up Plan Follow up with: Vesta Marie MD [Physician] - Disposition: Home, Self-Care Prognosis: Serious Rehab Potential: Fair Medical - DS: Qual - VTE Deep Vein Thrombosis/Pulmonary Embolism Present on Admission: No
[2018-07-03] MEDS: LORazepam 2 MG/ML VIAL IV SCH ×2 (20:36→23:39)
[2018-07-04] MEDS: 0.9 % SODIUM CHLORIDE 10 ML SYRINGE IV SCH ×2 (05:53)
[2018-07-04 06:08] LABS: Lipase 167 U/L (7-60)
[2018-07-04 06:12] LABS: ALT/SGPT 161 U/l (0-40); Albumin 3.9 gm/dL (3.2-5.2); Albumin/Globulin Ratio 1.3 (1.0-2.3); Alkaline Phosphatase 121 U/L (39-117); Bilirubin,Direct 0.3 mg/dL (0.0-0.3); Blood Urea Nitrogen 2 mg/dl (6-20); Gamma Glutamyl Transpeptidase 850 U/L (5-36)
--- NOTE | 2018-07-04 07:16 | Internal Med Progress Note ---
Medical - PN: Subj Patient information: Note initiated : 07/04/18 at 7:13 am Service Date, if different from initiated Date: [] Patient: Leanne Turcios a 28 y/o F admitted on 07/01/18 for Alcohol Withdrawl , Acute Pancreatitis. Chief Complaint: [] Interval history: Ms. Turcios is a 28 year old F With a history of alcohol abuse who reports quitting about 2 days ago. Prior to that she had been drinking about 1/5 of hard liquor daily. She realized that if she continue drinking that way she would likely not live to see her children grow up. She stopped several days ago and the next day she started feeling shaky, agitated she had fevers chills palpitations described as racing heart rash that she developed nausea vomiting abdominal pain which was a severe throbbing pain radiating around to the back. Vomitus was bile colored. She is been unable to sleep. Patient seen in the ER evaluated for alcohol withdrawal felt to have pancreatitis and workup had electrolyte abnormalities associated with her condition. Was given several boluses of IV fluids benzodiazepines and pain control. She also reports having episode of pancreatitis in October of this year. She has been unable to keep anything down for the past couple days as far as food and drink. 10 poor sleep last night, however better overall. Continues abdominal pain although with some improvement. Does have some chills. No nausea vomiting. Low CIWA score today shift. 07/03 tolerating clears well, only had nausea with the potassium. has the abdominal pain with slow improvement. 07/04 Tremors much improved. Slept okay. Has left upper and lower quadrant abdominal pain achy which radiates around to the back into the groin. Tolerating full liquid diet without nausea. Has soft bowel movement earlier this morning. Review of Systems: denies headache/fever/chills/vomiting/chest pain/cough/dyspnea/diarrhea. Otherwise see above. - Constitutional Vitals: Vital Signs Temp Pulse Resp BP Pulse Ox 97.3 F 94 H 17 115/77 99 07/04/18 04:00 07/03/18 16:00 07/04/18 04:00 07/04/18 04:00 07/04/18 04:00 Period Temp Pulse Resp BP Sys/Epps Pulse Ox Last 24 Hr 97.0 F-98.2 F 94-100 15-17 96-125/68-92 97-100 Intake and Output 07/03/18 07/04/18 07/04/18 21:59 05:59 13:59 Intake Total 1225.0909 / 1225.0909 360 / 360 Balance 1225.0909 / 1225.0909 360 / 360 Weight 57.379 kg Intake & Output: Intake & Output 07/03/18 07/04/18 07/04/18 21:59 05:59 13:59 Intake Total 1225.0909 / 1225.0909 360 / 360 Balance 1225.0909 / 1225.0909 360 / 360 Weight 57.379 kg Intake: IV 745.0909 / 745.0909 Oral 480 / 480 360 / 360 Other: # Voids 1 Exam: General: Alert, Awake, no acute distress HEENT: EOMI, neck supple CV: Mildly tachycardic but regular, No murmurs, normal s1/s2 Pulm: Clear b/l, no wheezing/rhonchi/rales Abd: soft, tender to palpate LUQ/LLQ, +BS x4 Ext: no clubbing/cyanosis/edema Neuro: Alert, no focal deficits, moves all extremities, Skin: warm/dry Medical - PN: Obj Da - Labs CBC & Chem 7: 07/03/18 03:41 07/04/18 04:24 Labs: Abnormal Lab Results 07/04/18 07/04/18 07/03/18 04:24 04:24 08:20 WBC RBC Hgb Hct MCV MCH RDW Plt Count Lymph % (Auto) Lymph # (Auto) Sodium Potassium Chloride Carbon Dioxide Anion Gap BUN 2 L Creatinine 0.4 L Glucose 120 H Calcium Phosphorus Total Bilirubin Direct Bilirubin GGT 850 H AST 179 H ALT 161 H Alkaline Phosphatase 121 H Lactate Dehydrogenase 310 H Total Protein Albumin Amylase Lipase 167 H 473 H Urine Protein Urine Ketones Urine Occult Blood Urine RBC Hyaline Casts 07/03/18 07/03/18 07/02/18 03:41 03:41 08:37 WBC 3.0 L RBC 3.36 L Hgb Hct 35.0 L MCV 104.2 H MCH 36.1 H RDW 14.6 H Plt Count 76 L Lymph % (Auto) Lymph # (Auto) 0.7 L Sodium Potassium 2.6 L* Chloride Carbon Dioxide 20 L Anion Gap 18.0 H BUN 2 L Creatinine 0.4 L Glucose 115 H Calcium Phosphorus 1.3 L Total Bilirubin 1.1 H Direct Bilirubin 0.4 H GGT 943 H AST 244 H ALT 162 H Alkaline Phosphatase 119 H Lactate Dehydrogenase 332 H Total Protein Albumin Amylase Lipase 533 H Urine Protein Urine Ketones Urine Occult Blood Urine RBC Hyaline Casts 07/02/18 07/02/18 07/01/18 03:37 03:37 13:54 WBC 2.7 L RBC 3.27 L Hgb 11.8 L Hct 34.7 L MCV 106.2 H MCH 36.2 H RDW 14.7 H Plt Count 68 L Lymph % (Auto) Lymph # (Auto) 0.5 L Sodium Potassium Chloride Carbon Dioxide 12 L Anion Gap 20.0 H BUN 2 L Creatinine 0.5 L Glucose 115 H Calcium 7.7 L Phosphorus 0.9 L Total Bilirubin Direct Bilirubin 0.4 H GGT 847 H AST 247 H ALT 127 H Alkaline Phosphatase Lactate Dehydrogenase 370 H Total Protein Albumin Amylase Lipase Urine Protein 100 A Urine Ketones 80 A Urine Occult Blood 0.2 A Urine RBC 9 H Hyaline Casts 12 H 07/01/18 07/01/18 07/01/18 13:46 12:18 12:18 WBC RBC Hgb Hct MCV MCH RDW Plt Count Lymph % (Auto) Lymph # (Auto) Sodium Potassium Chloride Carbon Dioxide Anion Gap BUN Creatinine Glucose Calcium Phosphorus 1.1 L Total Bilirubin Direct Bilirubin GGT AST ALT 139 H Alkaline Phosphatase 131 H Lactate Dehydrogenase 395 H Total Protein Albumin Amylase Lipase Urine Protein Urine Ketones Urine Occult Blood Urine RBC Hyaline Casts 07/01/18 07/01/18 12:18 12:18 WBC RBC Hgb 15.6 H Hct MCV 106.4 H MCH 35.9 H RDW 14.6 H Plt Count 117 L Lymph % (Auto) 12.5 L Lymph # (Auto) 0.8 L Sodium 130 L Potassium Chloride 87 L Carbon Dioxide 7 L* Anion Gap 36.0 H BUN Creatinine Glucose 139 H Calcium Phosphorus Total Bilirubin 1.3 H Direct Bilirubin GGT AST 307 H ALT Alkaline Phosphatase Lactate Dehydrogenase Total Protein 9.4 H Albumin 5.7 H Amylase 117 H Lipase 512 H Urine Protein Urine Ketones Urine Occult Blood Urine RBC Hyaline Casts Meds: Medications Acetaminophen/Codeine Phosphate (Tylenol #3) 1 tab PO Q4HP PRN PRN Reason: PAIN LEVEL 3-6 Last Admin: 07/03/18 14:15 Dose: 1 tab Chlordiazepoxide HCl (Librium) 50 mg PO Q4HP PRN PRN Reason: Alcohol Withdrawal Clonidine HCl (Catapres) 0.1 mg PO Q4HP PRN PRN Reason: Alcohol Withdrawal Last Admin: 07/03/18 18:24 Dose: 0.1 mg Docusate Sodium (Colace) 100 mg PO BID [facility] Last Admin: 07/03/18 20:36 Dose: 100 mg Enoxaparin Sodium (Lovenox) 40 mg SQ DAILY [facility] Last Admin: 07/03/18 08:04 Dose: 40 mg Famotidine (Pepcid) 20 mg PO BID [facility] Last Admin: 07/03/18 20:36 Dose: 20 mg Folic Acid (Folic Acid) 1 mg PO DAILY [facility] Last Admin: 07/03/18 08:04 Dose: 1 mg Hydromorphone HCl (Dilaudid) 0.5 mg IV Q2HP PRN PRN Reason: PAIN LEVEL > 6 Last Admin: 07/03/18 19:01 Dose: 0.5 mg Thiamine HCl 100 mg/ Sodium (Chloride) 51 mls @ 50 mls/hr IV DAILY [facility] Last Admin: 07/03/18 10:06 Dose: 50 mls/hr Iron Carb/Multivit/Digitizer/Folic Acid (Multivitamin W/Minerals) 1 tab PO DAILY [facility] Last Admin: 07/03/18 08:03 Dose: 1 tab Lorazepam (Ativan) 1 mg IV Q4HP PRN PRN Reason: ANXIETY/SEDATION Last Admin: 07/02/18 09:57 Dose: 1 mg Lorazepam (Ativan) 1 mg IV Q4HP [facility]; Protocol Stop: 07/06/18 15:01 Last Admin: 07/03/18 23:39 Dose: 1 mg Nicotine (Nicoderm) 14 mg TOPICAL DAILY@1000 [facility] Last Admin: 07/03/18 10:07 Dose: 14 mg Ondansetron HCl (Zofran) 4 mg IV Q4HP PRN PRN Reason: Nausea And Vomiting Last Admin: 07/03/18 16:10 Dose: 4 mg Prochlorperazine Maleate (Compazine) 12.5 mg [place] Q12HP PRN PRN Reason: Nausea And Vomiting Promethazine HCl (Phenergan) 12.5 mg PO Q6HP PRN PRN Reason: Nausea And Vomiting Senna (Senokot) 2 tab PO HSP PRN PRN Reason: Constipation Sodium Chloride (Saline Flush) 10 ml IV Q8 [facility] Last Admin: 07/04/18 05:53 Dose: 10 ml Sodium Chloride (Saline Flush) 10 ml IV Q8 [facility] Last Admin: 07/04/18 05:53 Dose: 10 ml Medical - PN: A/P - Time Spent With Patient Total time spent is greater than 50% in coordination of care (as documented) at patient's floor/unit and/or counseling patient: - Narrative A/P Narrative: A: *Alcohol abuse w/withdrawal: improving *Acute pancreatitis: Secondary to above -GB unremarkable on u/s *LUQ/LLQ abdominal pain radiating down into groin: ?MSK vs refereed pain vs other -UA and CT abd/pelvis on admit unremarkable *Anion gap metabolic acidosis: Likely related to alcohol intoxication and alcoholic ketoacidosis -improved *etoh hepatitis: *Fatty liver: *Hyponatremia: Secondary to volume loss, improved *Hypokalemia/phos: *Alcoholic hepatitis: *Tobacco abuse: *Macrocytosis: 2/2 etoh chronic P: -ambulate and monitor, if abdominal pain continues will repeat CT with PO/IV contrast this afternoon -CIWA protocol and prn benzodiazepines, vitamins -Pain control and antiemetics -cont full liquid -PRN electrolyte replaced -Case management for assistance in programs with alcohol abuse -Smoking cessation counseling -ppx: Lovenox Medical - PN: Qual - Stroke Symptom Onset Unknown: No - VTE Deep Vein Thrombosis/Pulmonary Embolism Present on Admission: No
[2018-07-04] MEDS: FOLIC ACID 1 MG TABLET PO SCH (08:38)
[2018-07-04] MEDS: ENOXAPARIN 40 MG/0.4 ML SYRINGE SQ SCH (08:38)
[2018-07-04] MEDS: DOCUSATE SODIUM 100 MG CAPSULE PO SCH (08:38)
[2018-07-04] MEDS: MULTIVIT,THER IRON,CA,FA & MIN 1 TABLET PO SCH (08:38)
[2018-07-04] MEDS: FAMOTIDINE 20 MG TABLET PO SCH (08:38)
[2018-07-04] MEDS: THIAMINE 100 MG in 0.9 % SODIUM CHLORIDE 50 ML IV SCH (08:39)
[2018-07-04] MEDS: NICOTINE 14 MG PATCH TOPICAL SCH (09:04)
[2018-07-04] MEDS: ACETAMINOPHEN W/CODEINE #3 1 TABLET PO PRN (09:11)
== END 2018-07-04 13:10 | disposition home or self-care (01) | DRG 896 ==
LOC: ED 11:34 → ICU 16:05
PROVIDERS: ADMIT Internal Medicine; ATTEND Internal Medicine
CPT/HCPCS: 99223; 99231; J0610; J1170; J1650; J2060; J2250; J2405; J3411; J3480; J7030; J7050; J7060; Q9967

== ENCOUNTER 2021-05-10 20:11 | Inpatient (IN) ==
[2021-05-10] MEDS ORDERED: 0.9 % SODIUM CHLORIDE 1,000 ML IV ONE ×2 (20:42→22:24)
[2021-05-10] MEDS ORDERED: ONDANSETRON 4 MG/2 ML VIAL IV ONE ×3 (21:05→22:46)
[2021-05-10] MEDS ORDERED: cefTRIAXone 1 GM VIAL IV ONE (21:13)
--- NOTE | 2021-05-10 21:19 | Emergency Department Note ---
HPI General Chief complaint: Chest Pain Stated complaint: can't breath Time Seen by Provider: 05/10/21 20:56 Source: patient and family Mode of arrival: EMS Limitations: no limitations History of Present Illness HPI Narrative: Narrative: 30 yo F w/ h/o alcoholism p/w CP, SOB, B/L flank pain, N/V. She reports onset of Sx yesterday which have been constant since onset, w/ no clear alleviating/aggravating factors, no inciting cause, and have been stable since onset. The CP is over the ant chest w/ no radiation and is moderate severity aching. The SOB is constant. Her B/L flank pain is sharp, nonradiating. She has had nearly hourly episodes of N/V w/ clear emesis. She denies F/C. Her BMs have been normal and she has been unable to urinate today. She has never had similar Sx in the past. Related Data Home Medications Medication Instructions Recorded Confirmed buprenorphine 8 mg-naloxone 2 mg See Rx Instructions .ROUTE .COMPLEX 12/02/19 03/29/20 sublingual tablet clonazepam 0.5 mg tablet 0.5 mg PO TID PRN 12/02/19 03/31/20 Depo Provera SUBCUT 03/15/20 03/29/20 Previous Rx's Medication Instructions Recorded silver sulfadiazine 1 % topical 1 applic TOPICAL BID #20 g 03/29/20 cream cephalexin [Keflex] 500 mg PO QID #30 cap 03/31/20 sulfamethoxazole-trimethoprim 1 tab PO BID #14 tab 03/31/20 [Bactrim DS] Allergies Allergy/AdvReac Type Severity Reaction Status Date / Time Blueberry Allergy Severe Anaphylaxis Verified 05/10/21 20:18 sumatriptan [From Imitrex] Allergy Intermediate "FELT LIKE Verified 05/10/21 20:18 SOMETHING HEAVY WAS ON CHEST" lamotrigine Allergy Mild Rash Verified 05/10/21 20:18 mirtazapine AdvReac hallucinati Verified 05/10/21 20:18 ons Review of Systems ROS ROS Narrative: Narrative: All systems ED: reviewed and negative except as stated. PFSH Narrative Patient History Narrative: Narrative: Medical/Surgical/Family History All Active Problems (Updated 05/11/21 @ 01:25 by Kunal Holcomb MD) Abdominal pain (Acute) Alcoholism (Acute) Chest pain (Acute) Shortness of breath (Acute) Acute pancreatitis (Acute) 2nd deg burn finger (Acute) Puncture wound (Acute) UTI (urinary tract infection) (Acute) Dysuria (Acute) STD exposure (Acute) Suicide gesture (Acute) Laceration of wrist without complication (Acute) Alcoholism /alcohol abuse (Acute) Contusion of left foot (Acute) Viral infection (Acute) Alcohol intoxication (Acute) Tachycardia (Acute) Macrocytosis (Acute) Hematuria (Acute) Alcohol withdrawal syndrome (Acute) Alcoholic hepatitis without ascites (Acute) Herpes simplex keratoconjunctivitis (Acute) Dehydration (Acute) Fracture of tooth (Acute) Atopic eczema (Acute) Fatty liver, alcoholic (Acute) Alcohol dependence with withdrawal (Acute) Insomnia (Acute) Suicidal ideation (Acute) Laceration (Acute) Alcohol abuse (Acute) Abdominal pain (Acute) Thoracic back pain (Acute) Pancreatitis (Acute) Dental caries (Chronic) Headache (Acute) Acute alcohol intoxication (Acute) Pyelonephritis (Acute) Right knee pain (Acute) Medical History (Updated 05/11/21 @ 01:25 by Kunal Holcomb MD) Alcohol intoxication Dysuria Muscle strain STD exposure HANK neg. Wet prep with Clue cells, but neg whiff and low pH so does not meet Amsel criteria for tx of BV. Thoracic back pain UTI (urinary tract infection) Social History Smoking Status: Former smoker Alcohol Intake Frequency: former alcohol drinker Substance Use: does not use Exam Narrative Narrative: Narrative: General Limitations: no limitations General appearance: Present alert and in no apparent distress Head Head: Present atraumatic and normocephalic ENT ENT: Present mucous membranes moist and mucous membranes dry Neck Neck: Present normal inspection; Absent meningismus Chest Chest: Present normal inspection and symmetric chest wall rise Respiratory Respiratory: Present normal lung sounds bilaterally; Absent respiratory distress, rales/crackles and wheezes Cardiovascular Cardiovascular: Present regular rate, normal rhythm, +S1, +S2 and other (2+ B/L radial and DP pulses); Absent systolic murmur and diastolic murmur Adbominal Abdominal: Present soft, tenderness (diffuse) and normal bowel sounds; Absent distention, guarding, rebound and rigidity Extremities Extremities: Absent pedal edema Back Back: Present CVA tenderness (R) and CVA tenderness (L) Neurological Neurological: Present alert and oriented X3 Psychiatric Psychiatric: Present normal affect Skin Skin: Present warm (WNL) and dry Course Vital Signs Vital signs: Vital Signs Temperature 96.8 F L 05/10/21 20:13 Pulse Rate 126 H 05/10/21 20:13 Respiratory Rate 24 H 05/10/21 20:13 Blood Pressure 110/81 05/10/21 20:13 Pulse Oximetry (%) 97 05/10/21 20:13 Temperature 96.8 F L 05/11/21 02:03 Pulse Rate 97 H 05/11/21 02:03 Respiratory Rate 14 05/11/21 02:03 Blood Pressure 160/118 05/11/21 02:03 Pulse Oximetry (%) 100 05/11/21 02:03 [facility] MDM Narrative Medical decision making narrative: Narrative: 30 yo F w/ h/o alcoholism p/w CP, SOB, B/L flank pain. DDx - sepsis, dehydration, metabolic/electrolyte d/o, UTI, COVID19 Pt presented is moderate distress d/t abdominal pain, w/ tachycardia, but no hypotension, hypoxia. Her examination was concerning for peritonitis, sepsis, and other serious pathology. I started Tx empirically w/ IVF and rocephin. I had a low suspicion for COVID19 and her swab was negative. Overall my main concern was for an intra-abd pathology given her diffuse TTP. Her POC creatinine precluded a CT w/ contrast per our local radiology guidelines, thus I checked a CT w/o. This showed evidence of pancreatitis w/ peripancreatic fluid extending down the paracolic gutters. This was c/w pts presentation, and on further questioning, she reported that she has had pancreatitis in the past. Her labs were additionally notable for WBC 15, lactate 5. However, this was likely driven by pancreatitis rather than true sepsis. CMP was remarkable for ALAN w/ Cr 1.8, and significantly decreased CO2 along w/ significantly elevated anion gap. This was c/w significant dehydration from pancreatitis. HCG was negative and UA showed no evidence of UTI. I considered cardiopulmonary conditions however given her abdominal exam, I felt that her reported CP and SOB was really driven by diaphragmatic irritation and CXR was not indicated. I did not feel that PNA was likely. I did check an EKG and troponin. Troponin was negative and EKG showed no ischemia. I completed a repeat exam after sepsis fluids were given, and pt was in NAD, lung sounds were clear, heart sounds showed S1S2 w/ RRR no MRG, she had 2+ B/L radial pulses, and no pallor. EKG: sinus tachycardia, rate of 124. Normal MD, QRS, QT interval. QTc 526. LVH pattern present. No STEMI. Similar to previous. Lab Data Lab results reviewed: Yes I reviewed the patient's lab results. Result diagrams: 05/10/21 21:04 05/10/21 21:04 Labs: Lab Results 05/10/21 05/10/21 05/10/21 Range/Units 21:03 21:04 21:04 WBC 15.3 H (4.5-11.0) K/mcL RBC 4.96 (3.59-5.38) M/mcL Hgb 16.3 H (11.2-15.7) g/dL Hct 50.5 H (34.1-44.9) % MCV 101.8 H (80.0-100.0) fL MCH 32.9 (26.0-34.0) pg MCHC 32.3 (31.0-36.0) g/dL RDW 15.7 H (11.5-14.5) % Plt Count 128 L (140-440) K/mcL MPV 11.0 H (7.4-10.4) fL Neut % (Auto) 90.2 H (38.0-78.0) % Lymph % (Auto) 4.7 L (15.5-49.0) % Sibley % (Auto) 4.7 (1.0-12.0) % Eos % (Auto) 0 (0.0-7.0) % Baso % (Auto) 0.4 (0.0-2.0) % Lymph # (Auto) 0.72 L (1.50-4.80) K/mcL Sibley # (Auto) 0.72 (0.10-0.90) K/mcL Eos # (Auto) 0 (0.00-0.70) K/mcL Baso # (Auto) 0.06 (0.00-0.30) K/mcL Absolute Neutrophils 13.80 H (1.80-8.00) K/mcL VBG Lactic Acid (0.5-2.0) mmol/L Sodium 133 (133-145) mmol/L Potassium 3.6 (3.3-5.1) mmol/L Chloride 91 L (96-108) mmol/L Carbon Dioxide 7 L* (22-30) mmol/L Anion Gap 35.0 H (8.0-16.0) BUN 13 (6-20) mg/dL Creatinine 1.8 H (0.6-1.1) mg/dL POC Creatinine (0.6-1.2) mg/dL GFR Calculation 37 Glucose 196 H (70-105) mg/dL Calcium 8.0 L (8.6-10.4) mg/dL Total Bilirubin 1.5 H (0.1-1.0) mg/dL AST 97 H (<32) U/L ALT 85 H (<40) U/L Alkaline Phosphatase 153 H (39-117) U/L Total Creatine Kinase (24-170) U/L CK-MB (CK-2) (<3.7) ng/mL Troponin T < 0.01 (<0.03) ng/mL Total Protein 7.3 (5.9-8.4) gm/dL Albumin 4.5 (3.2-5.2) gm/dL Globulin 2.8 (2.2-3.7) gm/dL Albumin/Globulin Ratio 1.6 (1.0-2.3) Lipase (7-60) U/L HCG Beta Subunit mIU/mL Urine Color Urine Appearance (Clear) Urine pH (5.0-9.0) Ur Specific Garnett (1.000-1.035) Urine Protein (Negative) mg/dL Urine Glucose (UA) (Negative) mg/dL Urine Ketones (Negative) mg/dL Urine Occult Blood (Negative) mg/dL Urine Nitrate (Negative) Urine Bilirubin (Negative) mg/dL Urine Urobilinogen mg/dL Ur Leukocyte Esterase (Negative) /ug Urine RBC (0-3) /hpf Urine WBC (0-4) /hpf Ur Squamous Epith Cells (0-4) /hpf Urine Bacteria (0) /hpf Hyaline Casts (0-2) /lph Urine Mucus (None) /hpf Ur Culture Indicated? 05/10/21 05/10/21 05/10/21 Range/Units 21:40 21:42 22:09 WBC (4.5-11.0) K/mcL RBC (3.59-5.38) M/mcL Hgb (11.2-15.7) g/dL Hct (34.1-44.9) % MCV (80.0-100.0) fL MCH (26.0-34.0) pg MCHC (31.0-36.0) g/dL RDW (11.5-14.5) % Plt Count (140-440) K/mcL MPV (7.4-10.4) fL Neut % (Auto) (38.0-78.0) % Lymph % (Auto) (15.5-49.0) % Sibley % (Auto) (1.0-12.0) % Eos % (Auto) (0.0-7.0) % Baso % (Auto) (0.0-2.0) % Lymph # (Auto) (1.50-4.80) K/mcL Sibley # (Auto) (0.10-0.90) K/mcL Eos # (Auto) (0.00-0.70) K/mcL Baso # (Auto) (0.00-0.30) K/mcL Absolute Neutrophils (1.80-8.00) K/mcL VBG Lactic Acid 5.5 H* (0.5-2.0) mmol/L Sodium (133-145) mmol/L Potassium (3.3-5.1) mmol/L Chloride (96-108) mmol/L Carbon Dioxide (22-30) mmol/L Anion Gap (8.0-16.0) BUN (6-20) mg/dL Creatinine (0.6-1.1) mg/dL POC Creatinine 2.1 H (0.6-1.2) mg/dL GFR Calculation Glucose (70-105) mg/dL Calcium (8.6-10.4) mg/dL Total Bilirubin (0.1-1.0) mg/dL AST (<32) U/L ALT (<40) U/L Alkaline Phosphatase (39-117) U/L Total Creatine Kinase 89 (24-170) U/L CK-MB (CK-2) 3.9 H (<3.7) ng/mL Troponin T (<0.03) ng/mL Total Protein (5.9-8.4) gm/dL Albumin (3.2-5.2) gm/dL Globulin (2.2-3.7) gm/dL Albumin/Globulin Ratio (1.0-2.3) Lipase (7-60) U/L HCG Beta Subunit < 0.1 mIU/mL Urine Color Yellow Urine Appearance Cloudy A (Clear) Urine pH 6.0 (5.0-9.0) Ur Specific Garnett 1.013 (1.000-1.035) Urine Protein >=500 A (Negative) mg/dL Urine Glucose (UA) 50 A (Negative) mg/dL Urine Ketones 80 A (Negative) mg/dL Urine Occult Blood 0.20 (Negative) mg/dL Urine Nitrate Negative (Negative) Urine Bilirubin Negative (Negative) mg/dL Urine Urobilinogen Negative mg/dL Ur Leukocyte Esterase 25 A (Negative) /ug Urine RBC 7 H (0-3) /hpf Urine WBC 30 H (0-4) /hpf Ur Squamous Epith Cells 7 H (0-4) /hpf Urine Bacteria None (0) /hpf Hyaline Casts 65 H (0-2) /lph Urine Mucus Many A (None) /hpf Ur Culture Indicated? No 05/10/21 Range/Units 23:54 WBC (4.5-11.0) K/mcL RBC (3.59-5.38) M/mcL Hgb (11.2-15.7) g/dL Hct (34.1-44.9) % MCV (80.0-100.0) fL MCH (26.0-34.0) pg MCHC (31.0-36.0) g/dL RDW (11.5-14.5) % Plt Count (140-440) K/mcL MPV (7.4-10.4) fL Neut % (Auto) (38.0-78.0) % Lymph % (Auto) (15.5-49.0) % Sibley % (Auto) (1.0-12.0) % Eos % (Auto) (0.0-7.0) % Baso % (Auto) (0.0-2.0) % Lymph # (Auto) (1.50-4.80) K/mcL Sibley # (Auto) (0.10-0.90) K/mcL Eos # (Auto) (0.00-0.70) K/mcL Baso # (Auto) (0.00-0.30) K/mcL Absolute Neutrophils (1.80-8.00) K/mcL VBG Lactic Acid (0.5-2.0) mmol/L Sodium (133-145) mmol/L Potassium (3.3-5.1) mmol/L Chloride (96-108) mmol/L Carbon Dioxide (22-30) mmol/L Anion Gap (8.0-16.0) BUN (6-20) mg/dL Creatinine (0.6-1.1) mg/dL POC Creatinine (0.6-1.2) mg/dL GFR Calculation Glucose (70-105) mg/dL Calcium (8.6-10.4) mg/dL Total Bilirubin (0.1-1.0) mg/dL AST (<32) U/L ALT (<40) U/L Alkaline Phosphatase (39-117) U/L Total Creatine Kinase (24-170) U/L CK-MB (CK-2) (<3.7) ng/mL Troponin T (<0.03) ng/mL Total Protein (5.9-8.4) gm/dL Albumin (3.2-5.2) gm/dL Globulin (2.2-3.7) gm/dL Albumin/Globulin Ratio (1.0-2.3) Lipase > 3000 H (7-60) U/L HCG Beta Subunit mIU/mL Urine Color Urine Appearance (Clear) Urine pH (5.0-9.0) Ur Specific Garnett (1.000-1.035) Urine Protein (Negative) mg/dL Urine Glucose (UA) (Negative) mg/dL Urine Ketones (Negative) mg/dL Urine Occult Blood (Negative) mg/dL Urine Nitrate (Negative) Urine Bilirubin (Negative) mg/dL Urine Urobilinogen mg/dL Ur Leukocyte Esterase (Negative) /ug Urine RBC (0-3) /hpf Urine WBC (0-4) /hpf Ur Squamous Epith Cells (0-4) /hpf Urine Bacteria (0) /hpf Hyaline Casts (0-2) /lph Urine Mucus (None) /hpf Ur Culture Indicated? ED POC Tests ED POC Tests: JOSSELIN - SARS Antigen Negative HCG POC Results Negative CC TIME Critical Care Time Total Critical Care Time: 45 Attestation: The very real possibility of disability or existed without emergent intervention. Organ systems at risk included cardiovascular, GI. Interventions included IVF, empiric abx. There were no procedures required. Discharge Plan Patient/Caregiver Discharge Instructions Pt seen by [employer]/PA only: No Clinical Impression: Abdominal pain, Alcoholism, Chest pain, Shortness of breath Acute pancreatitis Qualifiers: Pancreatitis type: alcohol induced Patient Disposition: Xfer As Inpt ([facility]) Condition: Serious Discharge Date/Time: 05/11/21 02:03 Discharge Location: [facility]
[2021-05-10 22:07] LABS: POC Creatinine 2.1 mg/dL (0.6-1.2)
[2021-05-10 22:35] LABS: Basophils # (Auto) 0.06 K/mcL (0.00-0.30); Basophils % (Auto) 0.4 % (0.0-2.0); Eosinophils # (Auto) 0 K/mcL (0.00-0.70); Eosinophils % (Auto) 0 % (0.0-7.0); Hematocrit 50.5 % (34.1-44.9); Hemoglobin 16.3 g/dL (11.2-15.7); Lymphocytes # (Auto) 0.72 K/mcL (1.50-4.80); Lymphocytes % (Auto) 4.7 % (15.5-49.0); Mean Cell Volume 101.8 fL (80.0-100.0); Mean Corpuscular HGB Conc 32.3 g/dL (31.0-36.0); Monocytes # (Auto) 0.72 K/mcL (0.10-0.90); Monocytes % (Auto) 4.7 % (1.0-12.0); Neutrophils % (Auto) 90.2 % (38.0-78.0); Platelet Count 128 K/mcL (140-440); RBC 4.96 M/mcL (3.59-5.38); Red Cell Distribution Width 15.7 % (11.5-14.5); WBC 15.3 K/mcL (4.5-11.0)
[2021-05-10] MEDS ORDERED: morphine 4 MG/ML VIAL IV ONE ×2 (22:46→23:50)
[2021-05-10] MEDS ORDERED: PROMETHAZINE 25 MG/ML VIAL IV ONE (22:53)
[2021-05-10 23:02] LABS: Appearance,Urine CLOUDY (Clear); Bilirubin,Urine Negative (Negative); Color,Urine Yellow; Culture Indicated,Urine No; Glucose,Urine (UA) 50 mg/dL (Negative); Ketones,Urine 80 mg/dL (Negative); Leukocyte Esterase,Urine 25 /ug (Negative); Mucus,Urine MANY /hpf; Nitrate,Urine Negative (Negative); Protein,Urine >=500 mg/dL (Negative); Specific Gravity,Urine 1.013 (1.000-1.035); Urine Hyaline Cast 65 /lph (0-2); Urine RBC 7 /hpf (0-3); Urine Squamous Epithelial Cell 7 /hpf (0-4); Urine WBC 30 /hpf (0-4); Urobilinogen,Urine Negative
[2021-05-10 23:07] LABS: ALT/SGPT 85 U/L (<40); AST/SGOT 97 U/L (<32); Albumin 4.5 gm/dL (3.2-5.2); Albumin/Globulin Ratio 1.6 (1.0-2.3); Alkaline Phosphatase 153 U/L (39-117); Bilirubin,Total 1.5 mg/dL (0.1-1.0); Blood Urea Nitrogen 13 mg/dL (6-20); Carbon Dioxide 7 mmol/L (22-30); Chloride 91 mmol/L (96-108); Globulin 2.8 gm/dL (2.2-3.7); Glomerular Filtration Rate 37; Glucose 196 mg/dL (70-105)
[2021-05-10 23:17] LABS: Creatine Kinase 89 U/L (24-170); Creatine Kinase MB 3.9 ng/mL (<3.7)
[2021-05-10 23:18] LABS: HCG Titer, Quantitative < 0.1 mIU/mL
[2021-05-11] MEDS ORDERED: PROMETHAZINE 25 MG/ML VIAL IV ONE (01:32)
--- NOTE | 2021-05-11 01:34 | Internal Med History&Physical ---
HPI History of Present Illness Patient information: Note initiated : 05/11/21 at 1:33 am Service Date, if different from initiated Date: [] Patient: Leanne Turcios 30 y/o F admitted on for can't breath. Chief Complaint: [] History of present illness: Ms. Turcios is a 30 year old female with a history of severe alcohol use disorder, alcoholic liver disease, suicidal ideation who presented to the ED with abdominal pain and was found to have acute pancreatitis. Additionally, the patient had an acute kidney injury, lactic acidosis, and met SIRS criteria. CT abdomen/pelvis without contrast was consistent with acute pancreatitis. The patient endorsed heavy alcohol consumption, she thought her last drink was the day before presenting to the ED. Hospital medicine was consulted for hospital admission. Review of systems Constitutional: positiev for fatigue Eyes: no vision changes or pain Cardiovascular: positive for chest pains Respiratory: no cough or dyspnea Gastrointestinal: positive for abdominal pain Genitourinary: positive for difficulty urinating Musculoskeletal: no arthralgia or myalgia Integumentary: no skin lesion or wound Neurological: no focal weakness or numbness Psychiatric: no anxiety or depression Physical exam Head: Atraumatic, normal inspection. Eyes: normal appearance, no scleral icterus. Neck: full ROM Respiratory: no respiratory distress. Cardiovascular: regular tachycardia, S1, S2. GI/Abdominal: moderately distended, diffusely tender, voluntary guarding Extremities: full range of motion, nontender. Neurological: CN II-XII intact, intact motor, intact sensation. Psychiatric: anxious mood Skin: skin abrasions throughout PFSH PFSH All Active Problems (Updated 05/11/21 @ 01:25 by Kunal Holcomb MD) Abdominal pain (Acute) Alcoholism (Acute) Chest pain (Acute) Shortness of breath (Acute) Acute pancreatitis (Acute) 2nd deg burn finger (Acute) Puncture wound (Acute) UTI (urinary tract infection) (Acute) Dysuria (Acute) STD exposure (Acute) Suicide gesture (Acute) Laceration of wrist without complication (Acute) Alcoholism /alcohol abuse (Acute) Contusion of left foot (Acute) Viral infection (Acute) Alcohol intoxication (Acute) Tachycardia (Acute) Macrocytosis (Acute) Hematuria (Acute) Alcohol withdrawal syndrome (Acute) Alcoholic hepatitis without ascites (Acute) Herpes simplex keratoconjunctivitis (Acute) Dehydration (Acute) Fracture of tooth (Acute) Atopic eczema (Acute) Fatty liver, alcoholic (Acute) Alcohol dependence with withdrawal (Acute) Insomnia (Acute) Suicidal ideation (Acute) Laceration (Acute) Alcohol abuse (Acute) Abdominal pain (Acute) Thoracic back pain (Acute) Pancreatitis (Acute) Dental caries (Chronic) Headache (Acute) Acute alcohol intoxication (Acute) Pyelonephritis (Acute) Right knee pain (Acute) Medical History (Updated 05/11/21 @ 01:25 by Kunal Holcomb MD) Alcohol intoxication Dysuria Muscle strain STD exposure HANK neg. Wet prep with Clue cells, but neg whiff and low pH so does not meet Amsel criteria for tx of BV. Thoracic back pain UTI (urinary tract infection) Social History alcohol intake frequency: former alcohol drinker substance use type: does not use MEDS/ALLERGIES Home Medications and Allergies Home Medications Medication Instructions Recorded Confirmed Type buprenorphine 8 mg-naloxone 2 mg See Rx Instructions .ROUTE .COMPLEX 12/02/19 05/11/21 History sublingual tablet Depo Provera SUBCUT 03/15/20 03/29/20 History clonazepam 0.5 mg PO TID 05/11/21 05/11/21 History Allergies Allergy/AdvReac Type Severity Reaction Status Date / Time Blueberry Allergy Severe Anaphylaxis Verified 05/10/21 20:18 lamotrigine Allergy Mild Rash Verified 05/10/21 20:18 mirtazapine AdvReac Intermediate hallucinati Verified 05/11/21 06:57 ons sumatriptan [From Imitrex] AdvReac Intermediate "FELT LIKE Verified 05/11/21 06:57 SOMETHING HEAVY WAS ON CHEST" EXAM Constitutional Vitals: Temp Pulse Resp BP Pulse Ox 96.8 F L 91 H 19 141/121 100 05/10/21 20:13 05/11/21 01:18 05/11/21 01:18 05/11/21 01:16 05/11/21 01:18 DATA Data Completed and Pending Labs: Labs from last 24 hours 05/10/21 05/10/21 05/10/21 23:54 22:09 21:42 WBC RBC Hgb Hct MCV MCH MCHC RDW Plt Count MPV Neut % (Auto) Lymph % (Auto) [place] % (Auto) Eos % (Auto) Baso % (Auto) Lymph # (Auto) [place] # (Auto) Eos # (Auto) Baso # (Auto) Absolute Neutrophils VBG Lactic Acid 5.5 H* Sodium Potassium Chloride Carbon Dioxide Anion Gap BUN Creatinine POC Creatinine GFR Calculation Glucose Calcium Total Bilirubin AST ALT Alkaline Phosphatase Total Creatine Kinase CK-MB (CK-2) Troponin T Total Protein Albumin Globulin Albumin/Globulin Ratio Lipase > 3000 H HCG Beta Subunit Urine Color Yellow Urine Appearance Cloudy A Urine pH 6.0 Ur Specific [place] 1.013 Urine Protein >=500 A Urine Glucose (UA) 50 A Urine Ketones 80 A Urine Occult Blood 0.20 Urine Nitrate Negative Urine Bilirubin Negative Urine Urobilinogen Negative Ur Leukocyte Esterase 25 A Urine RBC 7 H Urine WBC 30 H Ur Squamous Epith Cells 7 H Urine Bacteria None Hyaline Casts 65 H Urine Mucus Many A Ur Culture Indicated? No 05/10/21 05/10/21 05/10/21 21:40 21:04 21:04 WBC 15.3 H RBC 4.96 Hgb 16.3 H Hct 50.5 H MCV 101.8 H MCH 32.9 MCHC 32.3 RDW 15.7 H Plt Count 128 L MPV 11.0 H Neut % (Auto) 90.2 H Lymph % (Auto) 4.7 L [place] % (Auto) 4.7 Eos % (Auto) 0 Baso % (Auto) 0.4 Lymph # (Auto) 0.72 L [place] # (Auto) 0.72 Eos # (Auto) 0 Baso # (Auto) 0.06 Absolute Neutrophils 13.80 H VBG Lactic Acid Sodium 133 Potassium 3.6 Chloride 91 L Carbon Dioxide 7 L* Anion Gap 35.0 H BUN 13 Creatinine 1.8 H POC Creatinine 2.1 H GFR Calculation 37 Glucose 196 H Calcium 8.0 L Total Bilirubin 1.5 H AST 97 H ALT 85 H Alkaline Phosphatase 153 H Total Creatine Kinase 89 CK-MB (CK-2) 3.9 H Troponin T Total Protein 7.3 Albumin 4.5 Globulin 2.8 Albumin/Globulin Ratio 1.6 Lipase HCG Beta Subunit < 0.1 Urine Color Urine Appearance Urine pH Ur Specific [place] Urine Protein Urine Glucose (UA) Urine Ketones Urine Occult Blood Urine Nitrate Urine Bilirubin Urine Urobilinogen Ur Leukocyte Esterase Urine RBC Urine WBC Ur Squamous Epith Cells Urine Bacteria Hyaline Casts Urine Mucus Ur Culture Indicated? 05/10/21 21:03 WBC RBC Hgb Hct MCV MCH MCHC RDW Plt Count MPV Neut % (Auto) Lymph % (Auto) [place] % (Auto) Eos % (Auto) Baso % (Auto) Lymph # (Auto) [place] # (Auto) Eos # (Auto) Baso # (Auto) Absolute Neutrophils VBG Lactic Acid Sodium Potassium Chloride Carbon Dioxide Anion Gap BUN Creatinine POC Creatinine GFR Calculation Glucose Calcium Total Bilirubin AST ALT Alkaline Phosphatase Total Creatine Kinase CK-MB (CK-2) Troponin T < 0.01 Total Protein Albumin Globulin Albumin/Globulin Ratio Lipase HCG Beta Subunit Urine Color Urine Appearance Urine pH Ur Specific [place] Urine Protein Urine Glucose (UA) Urine Ketones Urine Occult Blood Urine Nitrate Urine Bilirubin Urine Urobilinogen Ur Leukocyte Esterase Urine RBC Urine WBC Ur Squamous Epith Cells Urine Bacteria Hyaline Casts Urine Mucus Ur Culture Indicated? A/P Narrative A/P Narrative: Assessment: 30 year old female with severe alcohol use disorder admitted for acute alcoholic pancreatitis. #Moderate to severe acute alcoholic pancreatitis #Acute kidney injury #Anion gap metabolic acidosis #Lactic acidosis #SIRS #Thrombocytopenia #Hyperglycemia #Severe alcohol use disorder #Substance use disorder Plan -Admit to PCU. -Volume resuscitation with IV normal saline. -Dilaudid IV prn. -CIWA protocol with Ativan IV prn, vitamin supplement -Lantus and SSI-med. -Daily CBC and inpatient panel. -Check CRP -Check hemoglobin A1C. -Check urine drug screen. -Serial abdominal exams, monitor for pancreatitis complications. -NPO for now but goal is early oral refeeding if tolerated, otherwise tube feeding. 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
[2021-05-11] MEDS ORDERED: PROMETHAZINE 25 MG/ML VIAL IV PRN (02:06)
[2021-05-11] MEDS ORDERED: NALOXONE HCL 0.4 MG/ML VIAL IV PRN (02:06)
[2021-05-11] MEDS ORDERED: ONDANSETRON 4 MG/2 ML VIAL IV PRN (02:06)
[2021-05-11] MEDS: 0.9 % SODIUM CHLORIDE 1,000 ML IV SCH ×6 (02:09→23:22)
[2021-05-11] MEDS: LORazepam 2 MG/ML VIAL IV PRN ×4 (02:48→12:30)
[2021-05-11] MEDS ORDERED: LORazepam 2 MG/ML VIAL ONE ×2 (02:49→05:10)
[2021-05-11 03:39] LABS: Amphetamine Screen,Urine None detected; Barbiturate Screen,Urine None detected; Benzodiazepines Screen,Urine None detected; Cannabinoid Screen,Urine None detected; Cocaine Screen,Urine Suspect Positive; Opiate Screen,Urine None detected; Oxycodone, Urine Screen None detected; Phencyclidine Screen,Urine None detected
[2021-05-11] MEDS: 0.9 % SODIUM CHLORIDE 10 ML SYRINGE IV SCH ×3 (05:55→20:25)
[2021-05-11] MEDS: HYDROmorphone 0.5 MG/0.5 ML SYRINGE IV PRN ×5 (06:49→20:22)
[2021-05-11 06:53] LABS: Basophils # (Auto) 0.01 K/mcL (0.00-0.30); Basophils % (Auto) 0.1 % (0.0-2.0); Eosinophils # (Auto) 0 K/mcL (0.00-0.70); Eosinophils % (Auto) 0 % (0.0-7.0); Hematocrit 47.4 % (34.1-44.9); Lymphocytes % (Auto) 2.7 % (15.5-49.0); Mean Cell Volume 99.2 fL (80.0-100.0); Mean Corpuscular HGB Conc 33.8 g/dL (31.0-36.0); Mean Platelet Volume 10.8 fL (7.4-10.4); Monocytes # (Auto) 0.76 K/mcL (0.10-0.90); Monocytes % (Auto) 6.7 % (1.0-12.0); Neutrophils % (Auto) 90.5 % (38.0-78.0); Platelet Count 89 K/mcL (140-440); RBC 4.78 M/mcL (3.59-5.38); Red Cell Distribution Width 15.4 % (11.5-14.5); WBC 11.3 K/mcL (4.5-11.0)
[2021-05-11] MEDS: HEPARIN 5,000 UNIT/ML VIAL SQ SCH ×3 (06:57→22:45)
[2021-05-11 07:41] LABS: ALT/SGPT 69 U/L (<40); AST/SGOT 80 U/L (<32); Albumin 3.9 gm/dL (3.2-5.2); Albumin/Globulin Ratio 1.4 (1.0-2.3); Alkaline Phosphatase 136 U/L (39-117); Bilirubin,Direct 0.8 mg/dL (<0.3); Bilirubin,Total 1.3 mg/dL (0.1-1.0); Blood Urea Nitrogen 11 mg/dL (6-20); Calcium 8.1 mg/dL (8.6-10.4); Carbon Dioxide 8 mmol/L (22-30); Chloride 98 mmol/L (96-108); Globulin 2.7 gm/dL (2.2-3.7); Glomerular Filtration Rate 60; Glucose 200 mg/dL (70-105); Lactate Dehydrogenase 316 U/L (135-225); Phosphorous 2.7 mg/dL (2.5-4.5); Triglycerides 353 mg/dL (<150); Uric Acid 8.1 mg/dL (2.5-8.0)
--- NOTE | 2021-05-11 08:15 | Cat Scan Report ---
History: Bilateral flank and abdominal pain, TTP (thrombotic thrombocytopenia purpura) TECHNIQUE: The patient was imaged without contrast in axial plane at 2.5 mm intervals from the diaphragm to the symphysis pubis. Sagittal and coronal reformats were created. The radiation exposure was limited using dose reduction technology. FINDINGS: The lung bases are clear. Liver is mildly enlarged and there is severe diffuse fatty infiltration. This has become significantly worse since a prior CT done on 09/04/18. There is relatively high attenuation fluid within the gallbladder. Gallbladder wall is not thickened and there are no stones. Bile ducts are nondilated. The spleen is normal in size and homogeneous. There is mild generalized enlargement of the pancreas and mild edema within it. Pancreatic duct is nondilated and there are no calcifications. There is significant stranding of the fat surrounding the pancreas. There is also infiltration around the spleen, left anterolateral pararenal space and extending down the left paracolic gutter. There is mild stranding in the right paracolic gutter. No free fluid is seen in the pelvis. The kidneys are normal without evidence of a stone, hydronephrosis or inflammation. There is a moderate amount of gas throughout small intestine. The paredes small disc and is not thickened or inflamed and there are no abnormal air-fluid levels. The colon is largely decompressed and is noninflamed. The uterus and left ovary appear normal. Right ovary cannot be clearly identified separate from adjacent bowel. Bone windows show no skeletal lesion. IMPRESSION: Significant inflammation and infiltration of the soft tissues around the pancreas extending down the left paracolic gutter. This is probably due to pancreatitis. However, hemorrhage related to Thrombotic thrombocytopenia purpura is a possibility.. Severe fatty infiltration the liver with mild hepatomegaly Interpreted and Authenticated by: Blaze Gotti 05/11/21
[2021-05-11] MEDS ORDERED: 0.9 % SODIUM CHLORIDE 500 ML IV ONE (09:15)
[2021-05-11] MEDS: THIAMINE 100 MG in 0.9 % SODIUM CHLORIDE 50 ML IV SCH (10:24)
[2021-05-11] MEDS ORDERED: DEXTROSE 31 GM ORAL.SUSP PO PRN (11:26)
[2021-05-11] MEDS ORDERED: DEXTROSE 50% 50 ML VIAL IV PRN (11:26)
[2021-05-11] MEDS: INSULIN LISPRO 1 UNIT/0.01 ML UNIT SQ SCH ×4 (11:57→23:22)
[2021-05-11] MEDS: cloNIDine HCL 0.1 MG TABLET PO PRN (13:24)
[2021-05-11] MEDS: FOLIC ACID 1 MG TABLET PO SCH (13:24)
--- NOTE | 2021-05-11 13:50 | Internal Med Progress Note ---
SUBJECTIVE Subjective Patient information: Note initiated : 05/11/21 at 1:38 pm Service Date, if different from initiated Date: [] Patient: Leanne Turcios 30 y/o F admitted on 05/11/21 for can't breath. Chief Complaint: [] Interval history: History of present illness: Ms. Turcios is a 30 year old female with a history of severe alcohol use disorder, alcoholic liver disease, suicidal ideation who presented to the ED with abdominal pain and was found to have acute pancreatitis. Additionally, the patient had an acute kidney injury, lactic acid osis, and met SIRS criteria. CT abdomen/pelvis without contrast was consistent with acute pancreatitis. The patient endorsed heavy alcohol consumption, she thought her last drink was the day before presenting to the ED. Hospital medicine was consulted for hospital admission. 05/12 Constitutional Vitals: Vital Signs Temp Pulse Resp BP Pulse Ox 97.8 F 111 H 20 146/108 100 05/11/21 08:00 05/11/21 10:00 05/11/21 10:00 05/11/21 10:00 05/11/21 10:00 Period Temp Pulse Resp BP Sys/Epps Pulse Ox Last 24 Hr 96.8 F-97.8 F 87-131 13-24 110-160/75-123 97-100 Intake and Output 05/10/21 05/11/21 05/11/21 21:59 05:59 13:59 Intake Total 1000 1000 2108 Output Total 450 Balance 1000 1000 1658 Weight 53.07 kg 49.578 kg Intake & Output: Intake & Output 05/10/21 05/11/21 05/11/21 21:59 05:59 13:59 Intake Total 1000 1000 2108 Output Total 450 Balance 1000 1000 1658 Weight 53.07 kg 49.578 kg Intake: IV 1000 1000 2108 Sodium Chloride 0.9% 1,000 ml @ 1000 1000 2057 200 mls/hr IV .Q5H [facility] Rx#: [id number] Vitamin B1 100 mg In Sodium 51 Chloride 0.9% 50 ml @ 50 mls/hr IV DAILY [facility] Rx#:[id number] Output: Void Amount 450 Other: Urine Appearance Clear Ure[place] ([place]) Clear Urine Color Dark [place] Uretheral ([place]) Light [place] Exam: General: Alert, Awake, No acute Distress Eyes/N/T: EOMI, Head/Neck: neck supple, CV: RRR, No murmurs, Pulm: Clear b/l, no wheezing/rhonchi/rales Abd: distended, diffusely tender, BSx4 Ext: no clubbing/cyanosis/edema Neuro: Alert, no focal deficits, moves all extremities, Skin: warm/dry OBJ DATA Labs CBC & Chem 7: 05/11/21 05:30 05/11/21 05:31 Labs: Abnormal Lab Results 05/11/21 05/11/21 05/11/21 05:31 05:30 02:44 WBC 11.3 H Hgb 16.0 H Hct 47.4 H MCV RDW 15.4 H Plt Count 89 L MPV 10.8 H Neut % (Auto) 90.5 H Lymph % (Auto) 2.7 L Lymph # (Auto) 0.30 L Absolute Neutrophils 10.20 H VBG Lactic Acid 2.5 H Chloride Carbon Dioxide 8 L* Anion Gap 30.0 H Creatinine 1.2 H POC Creatinine Glucose 200 H Uric Acid 8.1 H Calcium 8.1 L Total Bilirubin 1.3 H Direct Bilirubin 0.8 H GGT 418 H AST 80 H ALT 69 H Alkaline Phosphatase 136 H Lactate Dehydrogenase 316 H CK-MB (CK-2) Triglycerides 353 H Lipase Urine Appearance Urine Protein Urine Glucose (UA) Urine Ketones Ur Leukocyte Esterase Urine RBC Urine WBC Ur Squamous Epith Cells Hyaline Casts Urine Mucus Urine Cocaine Screen 05/11/21 05/10/21 05/10/21 02:10 23:54 22:09 WBC Hgb Hct MCV RDW Plt Count MPV Neut % (Auto) Lymph % (Auto) Lymph # (Auto) Absolute Neutrophils VBG Lactic Acid Chloride Carbon Dioxide Anion Gap Creatinine POC Creatinine Glucose Uric Acid Calcium Total Bilirubin Direct Bilirubin GGT AST ALT Alkaline Phosphatase Lactate Dehydrogenase CK-MB (CK-2) Triglycerides Lipase > 3000 H Urine Appearance Cloudy A Urine Protein >=500 A Urine Glucose (UA) 50 A Urine Ketones 80 A Ur Leukocyte Esterase 25 A Urine RBC 7 H Urine WBC 30 H Ur Squamous Epith Cells 7 H Hyaline Casts 65 H Urine Mucus Many A Urine Cocaine Screen Suspect positive A 05/10/21 05/10/21 05/10/21 21:42 21:40 21:04 WBC Hgb Hct MCV RDW Plt Count MPV Neut % (Auto) Lymph % (Auto) Lymph # (Auto) Absolute Neutrophils VBG Lactic Acid 5.5 H* Chloride 91 L Carbon Dioxide 7 L* Anion Gap 35.0 H Creatinine 1.8 H POC Creatinine 2.1 H Glucose 196 H Uric Acid Calcium 8.0 L Total Bilirubin 1.5 H Direct Bilirubin GGT AST 97 H ALT 85 H Alkaline Phosphatase 153 H Lactate Dehydrogenase CK-MB (CK-2) 3.9 H Triglycerides Lipase Urine Appearance Urine Protein Urine Glucose (UA) Urine Ketones Ur Leukocyte Esterase Urine RBC Urine WBC Ur Squamous Epith Cells Hyaline Casts Urine Mucus Urine Cocaine Screen 05/10/21 21:04 WBC 15.3 H Hgb 16.3 H Hct 50.5 H MCV 101.8 H RDW 15.7 H Plt Count 128 L MPV 11.0 H Neut % (Auto) 90.2 H Lymph % (Auto) 4.7 L Lymph # (Auto) 0.72 L Absolute Neutrophils 13.80 H VBG Lactic Acid Chloride Carbon Dioxide Anion Gap Creatinine POC Creatinine Glucose Uric Acid Calcium Total Bilirubin Direct Bilirubin GGT AST ALT Alkaline Phosphatase Lactate Dehydrogenase CK-MB (CK-2) Triglycerides Lipase Urine Appearance Urine Protein Urine Glucose (UA) Urine Ketones Ur Leukocyte Esterase Urine RBC Urine WBC Ur Squamous Epith Cells Hyaline Casts Urine Mucus Urine Cocaine Screen Meds: Medications Clonidine HCl (Clonidine Hcl 0.1 Mg Tablet) 0.1 mg PO Q4HP PRN PRN Reason: ALC Last Admin: 05/11/21 13:24 Dose: 0.1 mg Documented by: Dextrose (Dextrose 50% 50 Ml Vial) 0 ml IV UD PRN PRN Reason: Hypoglycemia Diagnostic Test (Pha) (Accu-Chek 1 Each Strip) 1 each FS ACHS [facility] Last Admin: 05/11/21 11:55 Dose: 1 each Documented by: Folic Acid (Folic Acid 1 Mg Tablet) 1 mg PO DAILY [facility] Last Admin: 05/11/21 13:24 Dose: 1 mg Documented by: Glucose (Dextrose 31 Gm Oral.Susp) 15 gm PO PRN PRN PRN Reason: Hypoglycemia Heparin Sodium (Porcine) (Heparin 5,000 Unit/Ml Vial) 5,000 unit SQ Q8 [facility] Last Admin: 05/11/21 06:57 Dose: 5,000 unit Documented by: Hydromorphone HCl (Hydromorphone 0.5 Mg/0.5 Ml Syringe) 0.5 mg IV Q1HP PRN; Protocol PRN Reason: Per Pain Protocol Last Admin: 05/11/21 13:33 Dose: 0.5 mg Documented by: Sodium Chloride (Sodium Chloride 0.9%) 1,000 mls @ 200 mls/hr IV .Q5H [facility] Last Infusion: 05/11/21 10:39 Dose: 999 mls/hr Documented by: Thiamine HCl 100 mg/ Sodium (Chloride) 51 mls @ 50 mls/hr IV DAILY [facility] Last Infusion: 05/11/21 11:34 Dose: Infused Documented by: Insulin Glargine (Insulin Glargine, Human 1 Unit/0.01 Ml) 5 unit SQ HS [facility] Insulin Human Lispro (Insulin Lispro 1 Unit/0.01 Ml Unit) 0 unit SQ ACHS [facility]; Protocol Last Admin: 05/11/21 11:57 Dose: 8 units Documented by: Lorazepam (Lorazepam 2 Mg/Ml Vial) 0 mg IV Q4HP PRN; Protocol PRN Reason: Alcohol Withdrawal Last Admin: 05/11/21 12:30 Dose: 1 mg Documented by: Naloxone HCl (Naloxone Hcl 0.4 Mg/Ml Vial) 0.4 mg IV Q10M PRN PRN Reason: Opiate Reversal Ondansetron HCl (Ondansetron 4 Mg/2 Ml Vial) 4 mg IV Q4HP PRN; Protocol PRN Reason: Nausea And Vomiting Promethazine HCl (Promethazine 25 Mg/Ml Vial) 12.5 mg IV Q6HP PRN; Protocol PRN Reason: Nausea And Vomiting Sodium Chloride (0.9 % Sodium Chloride 10 Ml Syringe) 10 ml IV Q8 [facility] Last Admin: 05/11/21 05:55 Dose: 10 ml Documented by: A/P Narrative A/P Narrative: A: #Moderate to severe acute alcoholic pancreatitis: #Severe alcohol use disorder & Withdrawal: #ALAN: #AG Metabolic acidosis: 2/2 Lactic acidosis & alcohol intoxication and alcoholic ketoacidosis #SIRS: #Thrombocytopenia: likely etoh related #Hyperglycemia: #Tobacco abuse: #Substance use disorder: -UDS with Cocaine #Fatty Liver: #Macrocytosis: 2/2 etoh chronic Plan: -Admit to PCU -Volume resuscitation with IV normal saline -Dilaudid IV prn -CIWA protocol with Ativan IV prn, vitamin supplement -Lantus and SSI, Check A1C -Serial abdominal exams, monitor for pancreatitis complications -NPO for now but goal is early oral refeeding if tolerated, otherwise tube feeding -etoh/substance/tobacco cessation counseling -DVT ppx: Heparin SQ Time Spent With Patient Time: Total time spent is greater than 50% in coordination of care (as documented) at patient's floor/unit and/or counseling patient:
[2021-05-11] MEDS ORDERED: METOPROLOL TARTRATE 5 MG/5 ML VIAL IV ONE (14:36)
[2021-05-11 15:25] LABS: Hemoglobin A1C 4.4 % Hgb (4.0-6.0)
[2021-05-11] MEDS ORDERED: INSULIN GLARGINE, HUMAN 1 UNIT/0.01 ML SQ SCH (21:00)
[2021-05-12] MEDS: LORazepam 2 MG/ML VIAL IV PRN ×3 (00:04→21:52)
[2021-05-12] MEDS: HYDROmorphone 0.5 MG/0.5 ML SYRINGE IV PRN ×8 (01:12→21:53)
[2021-05-12] MEDS: 0.9 % SODIUM CHLORIDE 1,000 ML IV SCH ×2 (04:22→09:19)
[2021-05-12] MEDS: HEPARIN 5,000 UNIT/ML VIAL SQ SCH (05:12)
[2021-05-12] MEDS: INSULIN LISPRO 1 UNIT/0.01 ML UNIT SQ SCH ×4 (05:12→23:58)
[2021-05-12] MEDS: 0.9 % SODIUM CHLORIDE 10 ML SYRINGE IV SCH ×4 (05:13→21:32)
[2021-05-12 07:20] LABS: Hematocrit 39.2 % (34.1-44.9); Mean Corpuscular HGB Conc 33.2 g/dL (31.0-36.0); Mean Platelet Volume 10.5 fL (7.4-10.4); Platelet Count 53 K/mcL (140-440); RBC 3.92 M/mcL (3.59-5.38); Red Cell Distribution Width 16.1 % (11.5-14.5); WBC 6.5 K/mcL (4.5-11.0)
[2021-05-12 08:04] LABS: Hemoglobin A1C 4.3 % Hgb (4.0-6.0)
[2021-05-12 08:08] LABS: ALT/SGPT 39 U/L (<40); AST/SGOT 51 U/L (<32); Albumin/Globulin Ratio 1.3 (1.0-2.3); Alkaline Phosphatase 91 U/L (39-117); Bilirubin,Direct 0.5 mg/dL (<0.3); Blood Urea Nitrogen 8 mg/dL (6-20); Calcium 8.1 mg/dL (8.6-10.4); Carbon Dioxide 6 mmol/L (22-30); Chloride 111 mmol/L (96-108); Globulin 2.4 gm/dL (2.2-3.7); Glomerular Filtration Rate 98; Glucose 171 mg/dL (70-105); Lactate Dehydrogenase 404 U/L (135-225); Phosphorous 1.3 mg/dL (2.5-4.5); Triglycerides 237 mg/dL (<150); Uric Acid 6.3 mg/dL (2.5-8.0)
--- NOTE | 2021-05-12 08:11 | Internal Med Progress Note ---
SUBJECTIVE Subjective Patient information: Note initiated : 05/12/21 at 8:09 am Service Date, if different from initiated Date: [] Patient: Leanne Turcios 30 y/o F admitted on 05/11/21 for Shortness of breath. Chief Complaint: [] Interval history: History of present illness: Ms. Turcios is a 30 year old female with a history of severe alcohol use disorder, alcoholic liver disease, suicidal ideation who presented to the ED with abdominal pain and was found to have acute pancreatitis. Additionally, the patient had an acute kidney injury, lactic acidosis, and met SIRS criteria. CT abdomen/pelvis without contrast was consistent with acute pancreatitis. The patient endorsed heavy alcohol consumption, she thought her last drink was the day before presenting to the ED. Hospital medicine was consulted for hospital admission. 05/12 Patient says she slept well. Has abdominal pain that continues. Has nausea. Denies chest pain or shortness of breath. Patient uses cocaine on occasion. But denies other drug use. Has some mild bruising over her body and says she got an wrestling match with a friend. On the CT abdomen pelvis it mentions a history of TTP which she denies. Review of Systems: denies headache/fever/chills/chest pain/cough/dyspnea/diarrhea. Otherwise see above. Constitutional Vitals: Vital Signs Temp Pulse Resp BP Pulse Ox 98.8 F 112 H 19 153/100 100 05/12/21 04:00 05/12/21 06:01 05/12/21 06:01 05/12/21 06:01 05/12/21 06:01 Period Temp Pulse Resp BP Sys/Epps Pulse Ox Last 24 Hr 98.0 F-99.3 F 93-144 15-25 128-172/94-122 100-100 Intake and Output 05/11/21 05/12/21 05/12/21 21:59 05:59 13:59 Intake Total 1240 2337 Output Total 340 660 Balance 900 1677 Weight 53.099 kg Intake & Output: Intake & Output 05/11/21 05/12/21 05/12/21 21:59 05:59 13:59 Intake Total 1240 2337 Output Total 340 660 Balance 900 1677 Weight 53.099 kg Intake: IV 1000 1976 Sodium Chloride 0.9% 1,000 ml @ 1000 1976 200 mls/hr IV .Q5H [facility] Rx#: [id number] Oral 240 360 Output: Urine Catheter Amount 340 660 Other: Urine Appearance Clear Clear Uretheral ([place]) Clear Urine Color Dark Yellow Dark Yellow Uretheral ([place]) Bright Yellow Exam: General: Alert, Awake, No acute Distress Eyes/N/T: EOMI, Head/Neck: neck supple, CV: RRR, No murmurs, Pulm: Clear b/l, no wheezing/rhonchi/rales Abd: distended, diffusely tender, decreased BSx4 Ext: no clubbing/cyanosis/edema Neuro: Alert, no focal deficits, moves all extremities, Skin: warm/dry OBJ DATA Labs CBC & Chem 7: 05/12/21 05:36 05/12/21 05:36 Labs: Abnormal Lab Results 05/12/21 05/12/21 05/12/21 05:36 05:36 05:36 WBC Hgb Hct MCV RDW 16.1 H Plt Count 53 L MPV 10.5 H Neut % (Auto) Lymph % (Auto) Lymph # (Auto) Absolute Neutrophils VBG Lactic Acid Chloride 111 H Carbon Dioxide 6 L* Anion Gap 27.0 H Creatinine POC Creatinine Glucose 171 H Uric Acid Calcium 8.1 L Phosphorus 1.3 L Total Bilirubin Direct Bilirubin 0.5 H GGT 270 H AST 51 H ALT Alkaline Phosphatase Lactate Dehydrogenase 404 H CK-MB (CK-2) C-Reactive Protein 14.60 H Total Protein 5.4 L Albumin 3.0 L Triglycerides 237 H Lipase Urine Appearance Urine Protein Urine Glucose (UA) Urine Ketones Ur Leukocyte Esterase Urine RBC Urine WBC Ur Squamous Epith Cells Hyaline Casts Urine Mucus Urine Cocaine Screen 05/11/21 05/11/21 05/11/21 05:31 05:31 05:30 WBC 11.3 H Hgb 16.0 H Hct 47.4 H MCV RDW 15.4 H Plt Count 89 L MPV 10.8 H Neut % (Auto) 90.5 H Lymph % (Auto) 2.7 L Lymph # (Auto) 0.30 L Absolute Neutrophils 10.20 H VBG Lactic Acid Chloride Carbon Dioxide 8 L* Anion Gap 30.0 H Creatinine 1.2 H POC Creatinine Glucose 200 H Uric Acid 8.1 H Calcium 8.1 L Phosphorus Total Bilirubin 1.3 H Direct Bilirubin 0.8 H GGT 418 H AST 80 H ALT 69 H Alkaline Phosphatase 136 H Lactate Dehydrogenase 316 H CK-MB (CK-2) C-Reactive Protein 0.90 H Total Protein Albumin Triglycerides 353 H Lipase Urine Appearance Urine Protein Urine Glucose (UA) Urine Ketones Ur Leukocyte Esterase Urine RBC Urine WBC Ur Squamous Epith Cells Hyaline Casts Urine Mucus Urine Cocaine Screen 05/11/21 05/11/21 05/10/21 02:44 02:10 23:54 WBC Hgb Hct MCV RDW Plt Count MPV Neut % (Auto) Lymph % (Auto) Lymph # (Auto) Absolute Neutrophils VBG Lactic Acid 2.5 H Chloride Carbon Dioxide Anion Gap Creatinine POC Creatinine Glucose Uric Acid Calcium Phosphorus Total Bilirubin Direct Bilirubin GGT AST ALT Alkaline Phosphatase Lactate Dehydrogenase CK-MB (CK-2) C-Reactive Protein Total Protein Albumin Triglycerides Lipase > 3000 H Urine Appearance Urine Protein Urine Glucose (UA) Urine Ketones Ur Leukocyte Esterase Urine RBC Urine WBC Ur Squamous Epith Cells Hyaline Casts Urine Mucus Urine Cocaine Screen Suspect positive A 05/10/21 05/10/21 05/10/21 22:09 21:42 21:40 WBC Hgb Hct MCV RDW Plt Count MPV Neut % (Auto) Lymph % (Auto) Lymph # (Auto) Absolute Neutrophils VBG Lactic Acid 5.5 H* Chloride Carbon Dioxide Anion Gap Creatinine POC Creatinine 2.1 H Glucose Uric Acid Calcium Phosphorus Total Bilirubin Direct Bilirubin GGT AST ALT Alkaline Phosphatase Lactate Dehydrogenase CK-MB (CK-2) 3.9 H C-Reactive Protein Total Protein Albumin Triglycerides Lipase Urine Appearance Cloudy A Urine Protein >=500 A Urine Glucose (UA) 50 A Urine Ketones 80 A Ur Leukocyte Esterase 25 A Urine RBC 7 H Urine WBC 30 H Ur Squamous Epith Cells 7 H Hyaline Casts 65 H Urine Mucus Many A Urine Cocaine Screen 05/10/21 05/10/21 21:04 21:04 WBC 15.3 H Hgb 16.3 H Hct 50.5 H MCV 101.8 H RDW 15.7 H Plt Count 128 L MPV 11.0 H Neut % (Auto) 90.2 H Lymph % (Auto) 4.7 L Lymph # (Auto) 0.72 L Absolute Neutrophils 13.80 H VBG Lactic Acid Chloride 91 L Carbon Dioxide 7 L* Anion Gap 35.0 H Creatinine 1.8 H POC Creatinine Glucose 196 H Uric Acid Calcium 8.0 L Phosphorus Total Bilirubin 1.5 H Direct Bilirubin GGT AST 97 H ALT 85 H Alkaline Phosphatase 153 H Lactate Dehydrogenase CK-MB (CK-2) C-Reactive Protein Total Protein Albumin Triglycerides Lipase Urine Appearance Urine Protein Urine Glucose (UA) Urine Ketones Ur Leukocyte Esterase Urine RBC Urine WBC Ur Squamous Epith Cells Hyaline Casts Urine Mucus Urine Cocaine Screen Meds: Medications Clonidine HCl (Clonidine Hcl 0.1 Mg Tablet) 0.1 mg PO Q4HP PRN PRN Reason: ALC Last Admin: 05/11/21 13:24 Dose: 0.1 mg Documented by: Dextrose (Dextrose 50% 50 Ml Vial) 0 ml IV UD PRN PRN Reason: Hypoglycemia Diagnostic Test (Pha) (Accu-Chek 1 Each Strip) 1 each FS Q6 [facility] Last Admin: 05/12/21 05:12 Dose: 1 each Documented by: Folic Acid (Folic Acid 1 Mg Tablet) 1 mg PO DAILY [facility] Last Admin: 05/11/21 13:24 Dose: 1 mg Documented by: Glucose (Dextrose 31 Gm Oral.Susp) 15 gm PO PRN PRN PRN Reason: Hypoglycemia Heparin Sodium (Porcine) (Heparin 5,000 Unit/Ml Vial) 5,000 unit SQ Q8 [facility] Last Admin: 05/12/21 05:12 Dose: 5,000 unit Documented by: Hydromorphone HCl (Hydromorphone 0.5 Mg/0.5 Ml Syringe) 0.5 mg IV Q1HP PRN; Protocol PRN Reason: Per Pain Protocol Last Admin: 05/12/21 07:07 Dose: 0.5 mg Documented by: Sodium Chloride (Sodium Chloride 0.9%) 1,000 mls @ 200 mls/hr IV .Q5H [facility] Last Admin: 05/12/21 04:22 Dose: 200 mls/hr Documented by: Thiamine HCl 100 mg/ Sodium (Chloride) 51 mls @ 50 mls/hr IV DAILY [facility] Last Infusion: 05/11/21 11:34 Dose: Infused Documented by: Insulin Human Lispro (Insulin Lispro 1 Unit/0.01 Ml Unit) 0 unit SQ Q6 [facility]; Protocol Last Admin: 05/12/21 05:12 Dose: 4 unit Documented by: Lorazepam (Lorazepam 2 Mg/Ml Vial) 0 mg IV Q4HP PRN; Protocol PRN Reason: Alcohol Withdrawal Last Admin: 05/12/21 00:04 Dose: 1 mg Documented by: Naloxone HCl (Naloxone Hcl 0.4 Mg/Ml Vial) 0.4 mg IV Q10M PRN PRN Reason: Opiate Reversal Ondansetron HCl (Ondansetron 4 Mg/2 Ml Vial) 4 mg IV Q4HP PRN; Protocol PRN Reason: Nausea And Vomiting Promethazine HCl (Promethazine 25 Mg/Ml Vial) 12.5 mg IV Q6HP PRN; Protocol PRN Reason: Nausea And Vomiting Sodium Chloride (0.9 % Sodium Chloride 10 Ml Syringe) 10 ml IV Q8 [facility] Last Admin: 05/12/21 05:13 Dose: 10 ml Documented by: A/P Narrative A/P Narrative: A: #Moderate to severe acute alcoholic pancreatitis: - #Severe alcohol use disorder & Withdrawal: #ALAN: resolved #AG Metabolic acidosis: 2/2 Lactic acidosis & alcohol intoxication and alcoholic ketoacidosis: #SIRS: -leukocytosis resolved #Thrombocytopenia: likely etoh related #Hyperglycemia: resolved, a1c 4.4 #Hypophos: #Tobacco abuse: #Substance use disorder: -Cocaine #Fatty Liver w/transaminitis: improving #Macrocytosis: 2/2 etoh chronic #Anxiety: on clonazepam at home Plan: -cont IVF -Dilaudid IV prn -CIWA protocol with Ativan IV prn, vitamin supplement -SSI, -Serial abdominal exams, monitor for pancreatitis complications -start clears for dinner early oral refeeding if tolerated, otherwise tube feeding -etoh/substance/tobacco cessation counseling -DVT ppx: lovenox Time Spent With Patient Time: Total time spent is greater than 50% in coordination of care (as documented) at patient's floor/unit and/or counseling patient:
[2021-05-12] MEDS ORDERED: POTASSIUM PHOSPHATE 40 MEQ in DEXTROSE 5% IN WATER 500 ML IV ONE (09:00)
[2021-05-12] MEDS ORDERED: SODIUM BICARBONATE VIAL 150 MEQ in DEXTROSE 5% IN WATER 850 ML IV SCH (09:00)
[2021-05-12] MEDS: THIAMINE 100 MG in 0.9 % SODIUM CHLORIDE 50 ML IV SCH (09:17)
[2021-05-12 09:27] LABS: Anisocytosis 1+ (None Seen); Band Neutrophils % 33 % (0-10); Hypochromasia RARE (None Seen); Lymphocytes % 2 % (15-49); Macrocytosis FEW (None Seen); Monocytes % (Manual) 3 % (1-12); Platelet Estimate DECREASED (Normal); Poikilocytosis FEW (None Seen); RBC Morphology ABNORMAL (Normal); Reactive Lymphocytes 2 % (0-2); Segmented Neutrophils % 60 % (38-78)
[2021-05-12] MEDS: SODIUM BICARBONATE VIAL 150 MEQ in DEXTROSE 5% IN WATER 850 ML IV SCH ×2 (10:33→18:37)
--- NOTE | 2021-05-12 10:39 | XRay Report ---
HISTORY: Abdominal pain, question ileus FINDINGS: There is a moderate amount of gas throughout both large and small intestine. Some of the small bowel loops measure up to 2.7 cm in diameter, which is within normal limits. Air-fluid levels and free air cannot be detected on this supine image. Normal quantity of stool is seen in the large intestine. Stomach is normally distended. There is no apparent soft tissue mass or abnormal calcification. IMPRESSION: Nonspecific bowel pattern Interpreted and Authenticated by: Blaze Gotti 05/12/21
[2021-05-12] MEDS ORDERED: METOCLOPRAMIDE 10 MG/2 ML VIAL IV ONE (10:44)
[2021-05-12] MEDS: FOLIC ACID 1 MG TABLET PO SCH (11:05)
[2021-05-12 11:50] LABS: Hepatitis B Surface Antigen Negative (Negative); Hepatitis C Virus Antibody Non-Reactive (Non-Reactive)
[2021-05-12] MEDS ORDERED: METOPROLOL TARTRATE 5 MG/5 ML VIAL IV ONE (15:44)
[2021-05-12 16:03] LABS: Basophils # (Auto) 0.01 K/mcL (0.00-0.30); Basophils % (Auto) 0.1 % (0.0-2.0); Eosinophils # (Auto) 0 K/mcL (0.00-0.70); Eosinophils % (Auto) 0 % (0.0-7.0); Hemoglobin 11.2 g/dL (11.2-15.7); Lymphocytes # (Auto) 0.91 K/mcL (1.50-4.80); Mean Cell Volume 96.1 fL (80.0-100.0); Mean Platelet Volume 11.6 fL (7.4-10.4); Monocytes # (Auto) 0.38 K/mcL (0.10-0.90); Monocytes % (Auto) 5.4 % (1.0-12.0); Neutrophils % (Auto) 81.5 % (38.0-78.0); Platelet Count 57 K/mcL (140-440); RBC 3.33 M/mcL (3.59-5.38); Red Cell Distribution Width 16.3 % (11.5-14.5)
[2021-05-12] MEDS ORDERED: METOCLOPRAMIDE 10 MG/2 ML VIAL IV PRN (17:00)
[2021-05-13] MEDS: HYDROmorphone 0.5 MG/0.5 ML SYRINGE IV PRN ×9 (00:29→20:09)
[2021-05-13] MEDS: 0.9 % SODIUM CHLORIDE 10 ML SYRINGE IV SCH ×5 (04:49→20:10)
[2021-05-13] MEDS: INSULIN LISPRO 1 UNIT/0.01 ML UNIT SQ SCH ×3 (05:24→17:28)
[2021-05-13 07:16] LABS: Hematocrit 30.2 % (34.1-44.9); Hemoglobin 10.4 g/dL (11.2-15.7); Mean Cell Volume 94.4 fL (80.0-100.0); Mean Corpuscular HGB Conc 34.4 g/dL (31.0-36.0); Mean Platelet Volume 12.1 fL (7.4-10.4); Platelet Count 44 K/mcL (140-440); Red Cell Distribution Width 15.8 % (11.5-14.5); WBC 4.3 K/mcL (4.5-11.0)
[2021-05-13 07:52] LABS: ALT/SGPT 30 U/L (<40); AST/SGOT 43 U/L (<32); Albumin 2.6 gm/dL (3.2-5.2); Albumin/Globulin Ratio 1.1 (1.0-2.3); Alkaline Phosphatase 73 U/L (39-117); Bilirubin,Direct 0.7 mg/dL (<0.3); Bilirubin,Total 1.7 mg/dL (0.1-1.0); Blood Urea Nitrogen 3 mg/dL (6-20); Calcium 7.8 mg/dL (8.6-10.4); Carbon Dioxide 25 mmol/L (22-30); Chloride 97 mmol/L (96-108); Globulin 2.3 gm/dL (2.2-3.7); Glomerular Filtration Rate 139; Glucose 201 mg/dL (70-105); Lactate Dehydrogenase 404 U/L (135-225); Phosphorous 0.4 mg/dL (2.5-4.5); Triglycerides 117 mg/dL (<150); Uric Acid 3.2 mg/dL (2.5-8.0)
[2021-05-13] MEDS ORDERED: POTASSIUM PHOSPHATE 40 MEQ in DEXTROSE 5% IN WATER 500 ML IV ONE (08:07)
[2021-05-13] MEDS ORDERED: MAGNESIUM SULFATE 2 GM/50 ML BAG IV ONE (08:07)
--- NOTE | 2021-05-13 08:16 | Internal Med Progress Note ---
SUBJECTIVE Subjective Patient information: Note initiated : 05/13/21 at 8:09 am Service Date, if different from initiated Date: [] Patient: Leanne Turcios 30 y/o F admitted on 05/11/21 for Shortness of breath. Chief Complaint: [] Interval history: History of present illness: Ms. Turcios is a 30 year old female with a history of severe alcohol use disorder, alcoholic liver disease, suicidal ideation who presented to the ED with abdominal pain and was found to have acute pancreatitis. Additionally, the patient had an acute kidney injury, lactic acidosis, and met SIRS criteria. CT abdomen/pelvis without contrast was consistent with acute pancreatitis. The patient endorsed heavy alcohol consumption, she thought her last drink was the day before presenting to the ED. Hospital medicine was consulted for hospital admission. 05/12 Patient says she slept well. Has abdominal pain that continues. Has nausea. Denies chest pain or shortness of breath. Patient uses cocaine on occasion. But denies other drug use. Has some mild bruising over her body and says she got an wrestling match with a friend. On the CT abdomen pelvis it mentions a history of TTP which she denies. Review of Systems: denies headache/fever/chills/chest pain/cough/dyspnea/diarrhea. Otherwise see above. Constitutional Vitals: Vital Signs Temp Pulse Resp BP Pulse Ox 99.6 F H 104 H 18 157/103 99 05/13/21 04:00 05/13/21 00:00 05/13/21 06:00 05/13/21 06:00 05/13/21 04:00 Period Temp Pulse Resp BP Sys/Epps Pulse Ox Last 24 Hr 99.0 F-99.6 F 91-128 14-21 148-158/85-110 98-100 Intake and Output 05/12/21 05/13/21 05/13/21 21:59 05:59 13:59 Intake Total 2546 2019 Output Total 740 810 Balance 1807 1210 Weight 55.701 kg Intake & Output: Intake & Output 05/12/21 05/13/21 05/13/21 21:59 05:59 13:59 Intake Total 2546 2019 Output Total 740 810 Balance 1807 1210 Weight 55.701 kg Intake: IV 867 1000 Sodium Bicarbonate Vial 150 Meq 867 1000 In Dextrose 5% in Water 850 ml @ 100 mls/hr IV Q20H [facility] Rx#: [id number] Oral 1680 1020 Output: Urine Catheter Amount 740 810 Other: Meal Dinner Percent of Meal Consumed 50% Feeding Ability Assist with Tray Set Up Urine Appearance Clear Clear Uretheral ([place]) Clear Urine Color Pale Dark Yellow Uretheral ([place]) Dark Yellow Exam: General: Alert, Awake, No acute Distress Eyes/N/T: EOMI, Head/Neck: neck supple, CV: RRR, No murmurs, Pulm: Clear b/l, no wheezing/rhonchi/rales Abd: distended, diffusely tender, decreased BSx4 Ext: no clubbing/cyanosis/edema Neuro: Alert, no focal deficits, moves all extremities, Skin: warm/dry OBJ DATA Labs CBC & Chem 7: 05/13/21 05:25 05/13/21 05:24 Labs: Abnormal Lab Results 05/13/21 05/13/21 05/12/21 05:25 05:24 15:27 WBC 4.3 L RBC 3.20 L 3.33 L Hgb 10.4 L Hct 30.2 L 32.0 L MCV RDW 15.8 H 16.3 H Plt Count 44 L* 57 L MPV 12.1 H 11.6 H Neut % (Auto) 81.5 H Lymph % (Auto) 13.0 L Lymph # (Auto) 0.91 L Band Neutrophils % Lymphocytes % Absolute Neutrophils Platelet Estimate RBC Morphology Hypochromasia Poikilocytosis Anisocytosis Macrocytosis VBG Lactic Acid Potassium 2.6 L* Chloride Carbon Dioxide Anion Gap BUN 3 L Creatinine 0.4 L POC Creatinine Glucose 201 H Uric Acid Calcium 7.8 L Phosphorus 0.4 L Magnesium 1.4 L Total Bilirubin 1.7 H Direct Bilirubin 0.7 H GGT 181 H AST 43 H ALT Alkaline Phosphatase Lactate Dehydrogenase 404 H CK-MB (CK-2) C-Reactive Protein Total Protein 4.9 L Albumin 2.6 L Triglycerides Lipase Urine Appearance Urine Protein Urine Glucose (UA) Urine Ketones Ur Leukocyte Esterase Urine RBC Urine WBC Ur Squamous Epith Cells Hyaline Casts Urine Mucus Urine Cocaine Screen 05/12/21 05/12/21 05/12/21 05:36 05:36 05:36 WBC RBC Hgb Hct MCV RDW 16.1 H Plt Count 53 L MPV 10.5 H Neut % (Auto) Lymph % (Auto) Lymph # (Auto) Band Neutrophils % 33 H Lymphocytes % 2 L Absolute Neutrophils Platelet Estimate Decreased A RBC Morphology Abnormal A Hypochromasia Rare A Poikilocytosis Few A Anisocytosis 1+ A Macrocytosis Few A VBG Lactic Acid Potassium Chloride Carbon Dioxide Anion Gap BUN Creatinine POC Creatinine Glucose Uric Acid Calcium Phosphorus Magnesium Total Bilirubin Direct Bilirubin GGT AST ALT Alkaline Phosphatase Lactate Dehydrogenase CK-MB (CK-2) C-Reactive Protein 14.60 H Total Protein Albumin Triglycerides Lipase 1030 H Urine Appearance Urine Protein Urine Glucose (UA) Urine Ketones Ur Leukocyte Esterase Urine RBC Urine WBC Ur Squamous Epith Cells Hyaline Casts Urine Mucus Urine Cocaine Screen 05/12/21 05/11/21 05/11/21 05:36 05:31 05:31 WBC RBC Hgb Hct MCV RDW Plt Count MPV Neut % (Auto) Lymph % (Auto) Lymph # (Auto) Band Neutrophils % Lymphocytes % Absolute Neutrophils Platelet Estimate RBC Morphology Hypochromasia Poikilocytosis Anisocytosis Macrocytosis VBG Lactic Acid Potassium Chloride 111 H Carbon Dioxide 6 L* 8 L* Anion Gap 27.0 H 30.0 H BUN Creatinine 1.2 H POC Creatinine Glucose 171 H 200 H Uric Acid 8.1 H Calcium 8.1 L 8.1 L Phosphorus 1.3 L Magnesium Total Bilirubin 1.3 H Direct Bilirubin 0.5 H 0.8 H GGT 270 H 418 H AST 51 H 80 H ALT 69 H Alkaline Phosphatase 136 H Lactate Dehydrogenase 404 H 316 H CK-MB (CK-2) C-Reactive Protein 0.90 H Total Protein 5.4 L Albumin 3.0 L Triglycerides 237 H 353 H Lipase Urine Appearance Urine Protein Urine Glucose (UA) Urine Ketones Ur Leukocyte Esterase Urine RBC Urine WBC Ur Squamous Epith Cells Hyaline Casts Urine Mucus Urine Cocaine Screen 05/11/21 05/11/21 05/11/21 05:30 02:44 02:10 WBC 11.3 H RBC Hgb 16.0 H Hct 47.4 H MCV RDW 15.4 H Plt Count 89 L MPV 10.8 H Neut % (Auto) 90.5 H Lymph % (Auto) 2.7 L Lymph # (Auto) 0.30 L Band Neutrophils % Lymphocytes % Absolute Neutrophils 10.20 H Platelet Estimate RBC Morphology Hypochromasia Poikilocytosis Anisocytosis Macrocytosis VBG Lactic Acid 2.5 H Potassium Chloride Carbon Dioxide Anion Gap BUN Creatinine POC Creatinine Glucose Uric Acid Calcium Phosphorus Magnesium Total Bilirubin Direct Bilirubin GGT AST ALT Alkaline Phosphatase Lactate Dehydrogenase CK-MB (CK-2) C-Reactive Protein Total Protein Albumin Triglycerides Lipase Urine Appearance Urine Protein Urine Glucose (UA) Urine Ketones Ur Leukocyte Esterase Urine RBC Urine WBC Ur Squamous Epith Cells Hyaline Casts Urine Mucus Urine Cocaine Screen Suspect positive A 05/10/21 05/10/21 05/10/21 23:54 22:09 21:42 WBC RBC Hgb Hct MCV RDW Plt Count MPV Neut % (Auto) Lymph % (Auto) Lymph # (Auto) Band Neutrophils % Lymphocytes % Absolute Neutrophils Platelet Estimate RBC Morphology Hypochromasia Poikilocytosis Anisocytosis Macrocytosis VBG Lactic Acid 5.5 H* Potassium Chloride Carbon Dioxide Anion Gap BUN Creatinine POC Creatinine Glucose Uric Acid Calcium Phosphorus Magnesium Total Bilirubin Direct Bilirubin GGT AST ALT Alkaline Phosphatase Lactate Dehydrogenase CK-MB (CK-2) C-Reactive Protein Total Protein Albumin Triglycerides Lipase > 3000 H Urine Appearance Cloudy A Urine Protein >=500 A Urine Glucose (UA) 50 A Urine Ketones 80 A Ur Leukocyte Esterase 25 A Urine RBC 7 H Urine WBC 30 H Ur Squamous Epith Cells 7 H Hyaline Casts 65 H Urine Mucus Many A Urine Cocaine Screen 05/10/21 05/10/21 05/10/21 21:40 21:04 21:04 WBC 15.3 H RBC Hgb 16.3 H Hct 50.5 H MCV 101.8 H RDW 15.7 H Plt Count 128 L MPV 11.0 H Neut % (Auto) 90.2 H Lymph % (Auto) 4.7 L Lymph # (Auto) 0.72 L Band Neutrophils % Lymphocytes % Absolute Neutrophils 13.80 H Platelet Estimate RBC Morphology Hypochromasia Poikilocytosis Anisocytosis Macrocytosis VBG Lactic Acid Potassium Chloride 91 L Carbon Dioxide 7 L* Anion Gap 35.0 H BUN Creatinine 1.8 H POC Creatinine 2.1 H Glucose 196 H Uric Acid Calcium 8.0 L Phosphorus Magnesium Total Bilirubin 1.5 H Direct Bilirubin GGT AST 97 H ALT 85 H Alkaline Phosphatase 153 H Lactate Dehydrogenase CK-MB (CK-2) 3.9 H C-Reactive Protein Total Protein Albumin Triglycerides Lipase Urine Appearance Urine Protein Urine Glucose (UA) Urine Ketones Ur Leukocyte Esterase Urine RBC Urine WBC Ur Squamous Epith Cells Hyaline Casts Urine Mucus Urine Cocaine Screen Meds: Medications Clonidine HCl (Clonidine Hcl 0.1 Mg Tablet) 0.1 mg PO Q4HP PRN PRN Reason: ALC Last Admin: 05/11/21 13:24 Dose: 0.1 mg Documented by: Dextrose (Dextrose 50% 50 Ml Vial) 0 ml IV UD PRN PRN Reason: Hypoglycemia Diagnostic Test (Pha) (Accu-Chek 1 Each Strip) 1 each FS Q6 [facility] Last Admin: 05/13/21 05:23 Dose: 1 each Documented by: Folic Acid (Folic Acid 1 Mg Tablet) 1 mg PO DAILY [facility] Last Admin: 05/12/21 11:05 Dose: 1 mg Documented by: Glucose (Dextrose 31 Gm Oral.Susp) 15 gm PO PRN PRN PRN Reason: Hypoglycemia Heparin Sodium (Porcine) (Heparin Flush 10 Units/Ml 5 Ml Syringe) 2 ml IV Q12 [facility] Last Admin: 05/12/21 21:32 Dose: 2 ml Documented by: Hydromorphone HCl (Hydromorphone 0.5 Mg/0.5 Ml Syringe) 0.5 mg IV Q1HP PRN; Protocol PRN Reason: Per Pain Protocol Last Admin: 05/13/21 07:30 Dose: 0.5 mg Documented by: Thiamine HCl 100 mg/ Sodium (Chloride) 51 mls @ 50 mls/hr IV DAILY [facility] Last Infusion: 05/12/21 10:19 Dose: Infused Documented by: Insulin Human Lispro (Insulin Lispro 1 Unit/0.01 Ml Unit) 0 unit SQ Q6 [facility]; Protocol Last Admin: 05/13/21 05:24 Dose: 4 unit Documented by: Lorazepam (Lorazepam 2 Mg/Ml Vial) 0 mg IV Q4HP PRN; Protocol PRN Reason: Alcohol Withdrawal Last Admin: 05/12/21 21:52 Dose: 2 mg Documented by: Metoclopramide HCl (Metoclopramide 10 Mg/2 Ml Vial) 10 mg IV Q6HP PRN PRN Reason: Nausea And Vomiting Naloxone HCl (Naloxone Hcl 0.4 Mg/Ml Vial) 0.4 mg IV Q10M PRN PRN Reason: Opiate Reversal Ondansetron HCl (Ondansetron 4 Mg/2 Ml Vial) 4 mg IV Q4HP PRN; Protocol PRN Reason: Nausea And Vomiting Promethazine HCl (Promethazine 25 Mg/Ml Vial) 12.5 mg IV Q6HP PRN; Protocol PRN Reason: Nausea And Vomiting Sodium Chloride (0.9 % Sodium Chloride 10 Ml Syringe) 10 ml IV Q8 [facility] Last Admin: 05/13/21 04:49 Dose: 10 ml Documented by: Sodium Chloride (0.9 % Sodium Chloride 10 Ml Syringe) 10 ml IV Q12 [facility] Last Admin: 05/12/21 21:32 Dose: 10 ml Documented by: A/P Narrative A/P Narrative: A: #Moderate to severe acute alcoholic pancreatitis: - #Severe alcohol use disorder & Withdrawal: #ALAN: resolved #AG Metabolic acidosis: 2/2 Lactic acidosis & alcohol intoxication and alcoholic ketoacidosis: -resolved #SIRS: -leukocytosis resolved #Chronic sinus Tach: #Thrombocytopenia: 128>>44 -HIT 4T score low prob but give severity of drop will send for HIT ab, Hgb stable #Hyperglycemia: a1c 4.4 #Hypophos/kalemia/magnesemia: #Tobacco abuse: #Substance use disorder: -Cocaine use -hepatitis panel neg #Fatty Liver w/transaminitis: improving #Macrocytosis: 2/2 etoh chronic #Anxiety: on clonazepam at home Plan: -IVF stopped, started clear diet -Dilaudid IV prn -CIWA protocol with Ativan IV prn, vitamin supplement -Serial abdominal exams, monitor for pancreatitis complications -start clears for dinner early oral refeeding if tolerated, otherwise tube feeding -replete electrolytes -send HIT ab, hapt, peripheral smear -SSI, -etoh/substance/tobacco cessation counseling -DVT ppx: d/c lovenox, to Fondaparinux Time Spent With Patient Time: Total time spent is greater than 50% in coordination of care (as documented) at patient's floor/unit and/or counseling patient:
[2021-05-13] MEDS: FOLIC ACID 1 MG TABLET PO SCH (08:18)
[2021-05-13 08:29] LABS: Anisocytosis 1+ (None Seen); Band Neutrophils % 25 % (0-10); Dohle Bodies FEW (None Seen); Lymphocytes % 13 % (15-49); Monocytes % (Manual) 5 % (1-12); Platelet Estimate MARKEDLY DECREASED (Normal); RBC Morphology ABNORMAL (Normal); Segmented Neutrophils % 57 % (38-78)
[2021-05-13] MEDS: clonazePAM 0.5 MG TABLET PO SCH ×3 (08:32→20:09)
[2021-05-13] MEDS: cloNIDine HCL 0.1 MG TABLET PO PRN ×3 (08:32→20:09)
[2021-05-13] MEDS: PHOSPHORUS 250 MG TABLET PO SCH ×4 (08:32→20:09)
[2021-05-13] MEDS: THIAMINE 100 MG in 0.9 % SODIUM CHLORIDE 50 ML IV SCH (08:34)
--- NOTE | 2021-05-13 08:45 | Internal Med Progress Note ---
SUBJECTIVE Subjective Patient information: Note initiated : 05/13/21 at 8:43 am Service Date, if different from initiated Date: [] Patient: Leanne Turcios 30 y/o F admitted on 05/11/21 for Shortness of breath. Chief Complaint: [] Interval history: History of present illness: Ms. Turcios is a 30 year old female with a history of severe alcohol use disorder, alcoholic liver disease, suicidal ideation who presented to the ED with abdominal pain and was found to have acute pancreatitis. Additionally, the patient had an acute kidney injury, lactic acidosis, and met SIRS criteria. CT abdomen/pelvis without contrast was consistent with acute pancreatitis. The patient endorsed heavy alcohol consumption, she thought her last drink was the day before presenting to the ED. Hospital medicine was consulted for hospital admission. 05/12 Patient says she slept well. Has abdominal pain that continues. Has nausea. Denies chest pain or shortness of breath. Patient uses cocaine on occasion. But denies other drug use. Has some mild bruising over her body and says she got an wrestling match with a friend. On the CT abdomen pelvis it mentions a history of TTP which she denies. 05/13 Patient feeling better slowly. Patient feels she can bend more easily without severe abdominal pain no BM yet. sinus tach, old records show chronic sinus tach. Platelets have decreased, no bleeding noted. Haptoglobin not decreased. Electrolytes low. Review of Systems: denies headache/fever/chills/chest pain/cough/dyspnea/diarrhea. Otherwise see above. Constitutional Vitals: Vital Signs Temp Pulse Resp BP Pulse Ox 100.4 F H 124 H 16 146/91 96 05/13/21 08:00 05/13/21 08:00 05/13/21 08:00 05/13/21 08:00 05/13/21 08:00 Period Temp Pulse Resp BP Sys/Epps Pulse Ox Last 24 Hr 99.0 F-100.4 F 95-128 - 146-158/85-110 96-100 Intake and Output 05/12/21 05/13/21 05/13/21 21:59 05:59 13:59 Intake Total 2547 2020 Output Total 740 810 Balance 1807 1210 Weight 55.701 kg Intake & Output: Intake & Output 05/12/21 05/13/21 05/13/21 21:59 05:59 13:59 Intake Total 2547 2019 Output Total 740 810 Balance 1807 1210 Weight 55.701 kg Intake: IV 867 1000 Sodium Bicarbonate Vial 150 Meq 867 1000 In Dextrose 5% in Water 850 ml @ 100 mls/hr IV Q20H [facility] Rx#: [id number] Oral 1680 1020 Output: Urine Catheter Amount 740 810 Other: Meal Dinner Percent of Meal Consumed 50% Feeding Ability Assist with Tray Set Up Urine Appearance Clear Clear Uretheral ([place]) Clear Urine Color Pale Dark Yellow Uretheral ([place]) Dark Yellow Exam: General: Alert, Awake, No acute Distress Eyes/N/T: EOMI, Head/Neck: neck supple, CV: RRR, No murmurs, Pulm: Clear b/l, no wheezing/rhonchi/rales Abd: mildly distended, diffusely tender but improve, +BSx4 Ext: no clubbing/cyanosis/edema Neuro: Alert, no focal deficits, moves all extremities, Skin: warm/dry OBJ DATA Labs CBC & Chem 7: 05/13/21 05:25 05/13/21 05:24 Labs: Abnormal Lab Results 05/13/21 05/13/21 05/12/21 05:25 05:24 15:27 WBC 4.3 L RBC 3.20 L 3.33 L Hgb 10.4 L Hct 30.2 L 32.0 L MCV RDW 15.8 H 16.3 H Plt Count 44 L* 57 L MPV 12.1 H 11.6 H Neut % (Auto) 81.5 H Lymph % (Auto) 13.0 L Lymph # (Auto) 0.91 L Band Neutrophils % 25 H Lymphocytes % 13 L Absolute Neutrophils WBC Morphology Abnormal A Dohle Bodies Few A Platelet Estimate Markedly decreased A RBC Morphology Abnormal A Hypochromasia Poikilocytosis Anisocytosis 1+ A Macrocytosis VBG Lactic Acid Potassium 2.6 L* Chloride Carbon Dioxide Anion Gap BUN 3 L Creatinine 0.4 L POC Creatinine Glucose 201 H Uric Acid Calcium 7.8 L Phosphorus 0.4 L Magnesium 1.4 L Total Bilirubin 1.7 H Direct Bilirubin 0.7 H GGT 181 H AST 43 H ALT Alkaline Phosphatase Lactate Dehydrogenase 404 H CK-MB (CK-2) C-Reactive Protein Total Protein 4.9 L Albumin 2.6 L Triglycerides Lipase Urine Appearance Urine Protein Urine Glucose (UA) Urine Ketones Ur Leukocyte Esterase Urine RBC Urine WBC Ur Squamous Epith Cells Hyaline Casts Urine Mucus Urine Cocaine Screen 05/12/21 05/12/21 05/12/21 05:36 05:36 05:36 WBC RBC Hgb Hct MCV RDW 16.1 H Plt Count 53 L MPV 10.5 H Neut % (Auto) Lymph % (Auto) Lymph # (Auto) Band Neutrophils % 33 H Lymphocytes % 2 L Absolute Neutrophils WBC Morphology Dohle Bodies Platelet Estimate Decreased A RBC Morphology Abnormal A Hypochromasia Rare A Poikilocytosis Few A Anisocytosis 1+ A Macrocytosis Few A VBG Lactic Acid Potassium Chloride Carbon Dioxide Anion Gap BUN Creatinine POC Creatinine Glucose Uric Acid Calcium Phosphorus Magnesium Total Bilirubin Direct Bilirubin GGT AST ALT Alkaline Phosphatase Lactate Dehydrogenase CK-MB (CK-2) C-Reactive Protein 14.60 H Total Protein Albumin Triglycerides Lipase 1030 H Urine Appearance Urine Protein Urine Glucose (UA) Urine Ketones Ur Leukocyte Esterase Urine RBC Urine WBC Ur Squamous Epith Cells Hyaline Casts Urine Mucus Urine Cocaine Screen 05/12/21 05/11/21 05/11/21 05:36 05:31 05:31 WBC RBC Hgb Hct MCV RDW Plt Count MPV Neut % (Auto) Lymph % (Auto) Lymph # (Auto) Band Neutrophils % Lymphocytes % Absolute Neutrophils WBC Morphology Dohle Bodies Platelet Estimate RBC Morphology Hypochromasia Poikilocytosis Anisocytosis Macrocytosis VBG Lactic Acid Potassium Chloride 111 H Carbon Dioxide 6 L* 8 L* Anion Gap 27.0 H 30.0 H BUN Creatinine 1.2 H POC Creatinine Glucose 171 H 200 H Uric Acid 8.1 H Calcium 8.1 L 8.1 L Phosphorus 1.3 L Magnesium Total Bilirubin 1.3 H Direct Bilirubin 0.5 H 0.8 H GGT 270 H 418 H AST 51 H 80 H ALT 69 H Alkaline Phosphatase 136 H Lactate Dehydrogenase 404 H 316 H CK-MB (CK-2) C-Reactive Protein 0.90 H Total Protein 5.4 L Albumin 3.0 L Triglycerides 237 H 353 H Lipase Urine Appearance Urine Protein Urine Glucose (UA) Urine Ketones Ur Leukocyte Esterase Urine RBC Urine WBC Ur Squamous Epith Cells Hyaline Casts Urine Mucus Urine Cocaine Screen 05/11/21 05/11/21 05/11/21 05:30 02:44 02:10 WBC 11.3 H RBC Hgb 16.0 H Hct 47.4 H MCV RDW 15.4 H Plt Count 89 L MPV 10.8 H Neut % (Auto) 90.5 H Lymph % (Auto) 2.7 L Lymph # (Auto) 0.30 L Band Neutrophils % Lymphocytes % Absolute Neutrophils 10.20 H WBC Morphology Dohle Bodies Platelet Estimate RBC Morphology Hypochromasia Poikilocytosis Anisocytosis Macrocytosis VBG Lactic Acid 2.5 H Potassium Chloride Carbon Dioxide Anion Gap BUN Creatinine POC Creatinine Glucose Uric Acid Calcium Phosphorus Magnesium Total Bilirubin Direct Bilirubin GGT AST ALT Alkaline Phosphatase Lactate Dehydrogenase CK-MB (CK-2) C-Reactive Protein Total Protein Albumin Triglycerides Lipase Urine Appearance Urine Protein Urine Glucose (UA) Urine Ketones Ur Leukocyte Esterase Urine RBC Urine WBC Ur Squamous Epith Cells Hyaline Casts Urine Mucus Urine Cocaine Screen Suspect positive A 05/10/21 05/10/21 05/10/21 23:54 22:09 21:42 WBC RBC Hgb Hct MCV RDW Plt Count MPV Neut % (Auto) Lymph % (Auto) Lymph # (Auto) Band Neutrophils % Lymphocytes % Absolute Neutrophils WBC Morphology Dohle Bodies Platelet Estimate RBC Morphology Hypochromasia Poikilocytosis Anisocytosis Macrocytosis VBG Lactic Acid 5.5 H* Potassium Chloride Carbon Dioxide Anion Gap BUN Creatinine POC Creatinine Glucose Uric Acid Calcium Phosphorus Magnesium Total Bilirubin Direct Bilirubin GGT AST ALT Alkaline Phosphatase Lactate Dehydrogenase CK-MB (CK-2) C-Reactive Protein Total Protein Albumin Triglycerides Lipase > 3000 H Urine Appearance Cloudy A Urine Protein >=500 A Urine Glucose (UA) 50 A Urine Ketones 80 A Ur Leukocyte Esterase 25 A Urine RBC 7 H Urine WBC 30 H Ur Squamous Epith Cells 7 H Hyaline Casts 65 H Urine Mucus Many A Urine Cocaine Screen 05/10/21 05/10/21 05/10/21 21:40 21:04 21:04 WBC 15.3 H RBC Hgb 16.3 H Hct 50.5 H MCV 101.8 H RDW 15.7 H Plt Count 128 L MPV 11.0 H Neut % (Auto) 90.2 H Lymph % (Auto) 4.7 L Lymph # (Auto) 0.72 L Band Neutrophils % Lymphocytes % Absolute Neutrophils 13.80 H WBC Morphology Dohle Bodies Platelet Estimate RBC Morphology Hypochromasia Poikilocytosis Anisocytosis Macrocytosis VBG Lactic Acid Potassium Chloride 91 L Carbon Dioxide 7 L* Anion Gap 35.0 H BUN Creatinine 1.8 H POC Creatinine 2.1 H Glucose 196 H Uric Acid Calcium 8.0 L Phosphorus Magnesium Total Bilirubin 1.5 H Direct Bilirubin GGT AST 97 H ALT 85 H Alkaline Phosphatase 153 H Lactate Dehydrogenase CK-MB (CK-2) 3.9 H C-Reactive Protein Total Protein Albumin Triglycerides Lipase Urine Appearance Urine Protein Urine Glucose (UA) Urine Ketones Ur Leukocyte Esterase Urine RBC Urine WBC Ur Squamous Epith Cells Hyaline Casts Urine Mucus Urine Cocaine Screen Meds: Medications Clonazepam (Clonazepam 0.5 Mg Tablet) 0.5 mg PO TID [facility] Last Admin: 05/13/21 08:32 Dose: 0.5 mg Documented by: Clonidine HCl (Clonidine Hcl 0.1 Mg Tablet) 0.1 mg PO Q4HP PRN PRN Reason: ALC Last Admin: 05/13/21 08:32 Dose: 0.1 mg Documented by: Dextrose (Dextrose 50% 50 Ml Vial) 0 ml IV UD PRN PRN Reason: Hypoglycemia Diagnostic Test (Pha) (Accu-Chek 1 Each Strip) 1 each FS Q6 [facility] Last Admin: 05/13/21 05:23 Dose: 1 each Documented by: Folic Acid (Folic Acid 1 Mg Tablet) 1 mg PO DAILY [facility] Last Admin: 05/13/21 08:18 Dose: 1 mg Documented by: Glucose (Dextrose 31 Gm Oral.Susp) 15 gm PO PRN PRN PRN Reason: Hypoglycemia Heparin Sodium (Porcine) (Heparin Flush 10 Units/Ml 5 Ml Syringe) 2 ml IV Q12 [facility] Last Admin: 05/13/21 08:17 Dose: 2 ml Documented by: Hydromorphone HCl (Hydromorphone 0.5 Mg/0.5 Ml Syringe) 0.5 mg IV Q1HP PRN; Protocol PRN Reason: Per Pain Protocol Last Admin: 05/13/21 07:30 Dose: 0.5 mg Documented by: Thiamine HCl 100 mg/ Sodium (Chloride) 51 mls @ 50 mls/hr IV DAILY [facility] Last Admin: 05/13/21 08:34 Dose: 50 mls/hr Documented by: Potassium Phosphate 40 meq/ (Dextrose) 509.0909 mls @ 127.273 mls/hr IV ONCE ONE Stop: 05/13/21 12:06 Last Admin: 05/13/21 08:34 Dose: 127.273 mls/hr Documented by: Magnesium Sulfate (Magnesium Sulfate) 2 gm in 50 mls @ 25 mls/hr IV ONCE ONE Stop: 05/13/21 10:06 Last Admin: 05/13/21 08:34 Dose: 25 mls/hr Documented by: Insulin Human Lispro (Insulin Lispro 1 Unit/0.01 Ml Unit) 0 unit SQ Q6 [facility]; Protocol Last Admin: 05/13/21 05:24 Dose: 4 unit Documented by: Lorazepam (Lorazepam 2 Mg/Ml Vial) 0 mg IV Q4HP PRN; Protocol PRN Reason: Alcohol Withdrawal Last Admin: 05/12/21 21:52 Dose: 2 mg Documented by: Metoclopramide HCl (Metoclopramide 10 Mg/2 Ml Vial) 10 mg IV Q6HP PRN PRN Reason: Nausea And Vomiting Naloxone HCl (Naloxone Hcl 0.4 Mg/Ml Vial) 0.4 mg IV Q10M PRN PRN Reason: Opiate Reversal Ondansetron HCl (Ondansetron 4 Mg/2 Ml Vial) 4 mg IV Q4HP PRN; Protocol PRN Reason: Nausea And Vomiting Promethazine HCl (Promethazine 25 Mg/Ml Vial) 12.5 mg IV Q6HP PRN; Protocol PRN Reason: Nausea And Vomiting Sodium Chloride (0.9 % Sodium Chloride 10 Ml Syringe) 10 ml IV Q8 [facility] Last Admin: 05/13/21 04:49 Dose: 10 ml Documented by: Sodium Chloride (0.9 % Sodium Chloride 10 Ml Syringe) 10 ml IV Q12 [facility] Last Admin: 05/13/21 08:19 Dose: 10 ml Documented by: Sodium Phosphate (Phosphorus 250 Mg Tablet) 250 mg PO QID [facility] Stop: 05/13/21 21:01 Last Admin: 05/13/21 08:32 Dose: 250 mg Documented by: A/P Narrative A/P Narrative: A: #Moderate to severe acute alcoholic pancreatitis: - #Severe alcohol use disorder & Withdrawal: improved #ALAN: resolved #AG Metabolic acidosis: 2/2 Lactic acidosis & alcohol intoxication and alcoholic ketoacidosis: -resolved #SIRS: -leukocytosis resolved #Chronic sinus Tach per trend from old labs: may start BB #Thrombocytopenia: 128>>44 -HIT 4T score low prob but give severity of drop will send for HIT ab, Hgb stable, haptoglobin wnl #Hyperglycemia: a1c 4.4 #Hypophos/kalemia/magnesemia: #Tobacco abuse: #Substance use disorder: -Cocaine use -hepatitis panel neg #Fatty Liver w/transaminitis: improving #Macrocytosis: 2/2 etoh chronic #Anxiety: on clonazepam at home Plan: -IVF stopped, started clear diet and tolerating -Dilaudid IV prn -CIWA protocol with Ativan IV prn, vitamin supplement -Serial abdominal exams, monitor for pancreatitis complications -replete electrolytes -send HIT ab, hapt, peripheral smear -SSI, -etoh/substance/tobacco cessation counseling -DVT ppx: d/c lovenox, to Fondaparinux, SCD while plt <50k Time Spent With Patient Time: Total time spent is greater than 50% in coordination of care (as documented) at patient's floor/unit and/or counseling patient:
[2021-05-13] MEDS ORDERED: ENOXAPARIN 30 MG/0.3 ML SYRINGE SQ SCH (09:00)
[2021-05-13 09:44] LABS: Partial Thromboplastin Time 30.9 sec (20.0-37.0); Prothrombin Time 13.4 sec (11.9-14.5)
[2021-05-13 09:46] LABS: Haptoglobin 214 mg/dL (30-200)
[2021-05-13] MEDS ORDERED: POLYETHYLENE GLYCOL 3350 17 GM PACKET PO ONE (09:50)
[2021-05-13] MEDS: METOPROLOL TARTRATE 25 MG TABLET PO SCH ×2 (10:13→20:09)
[2021-05-14] MEDS: INSULIN LISPRO 1 UNIT/0.01 ML UNIT SQ SCH ×5 (01:01→21:36)
[2021-05-14] MEDS: HYDROmorphone 0.5 MG/0.5 ML SYRINGE IV PRN ×5 (01:03→21:37)
[2021-05-14] MEDS: 0.9 % SODIUM CHLORIDE 10 ML SYRINGE IV SCH ×4 (05:31→21:39)
[2021-05-14 07:23] LABS: Hemoglobin 10.2 g/dL (11.2-15.7); Mean Cell Volume 95.7 fL (80.0-100.0); Mean Corpuscular HGB Conc 35.2 g/dL (31.0-36.0); Mean Platelet Volume 11.1 fL (7.4-10.4); Platelet Count 74 K/mcL (140-440); RBC 3.03 M/mcL (3.59-5.38); Red Cell Distribution Width 15.7 % (11.5-14.5); WBC 4.5 K/mcL (4.5-11.0)
--- NOTE | 2021-05-14 07:32 | Internal Med Progress Note ---
SUBJECTIVE Subjective Patient information: Note initiated : 05/14/21 at 7:30 am Service Date, if different from initiated Date: [] Patient: Leanne Turcios 30 y/o F admitted on 05/11/21 for Shortness of breath. Chief Complaint: [] Interval history: Interval history: History of present illness: Ms. Turcios is a 30 year old female with a history of severe alcohol use disorder, alcoholic liver disease, suicidal ideation who presented to the ED with abdominal pain and was found to have acute pancreatitis. Additionally, the patient had an acute kidney injury, lactic acidosis, and met SIRS criteria. CT abdomen/pelvis without contrast was consiste nt with acute pancreatitis. The patient endorsed heavy alcohol consumption, she thought her last drink was the day before presenting to the ED. Hospital medicine was consulted for hospital admission. 05/12 Patient says she slept well. Has abdominal pain that continues. Has nausea. Denies chest pain or shortness of breath. Patient uses cocaine on occasion. But denies other drug use. Has some mild bruising over her body and says she got an wrestling match with a friend. On the CT abdomen pelvis it mentions a history of TTP which she denies. 05/13 Patient feeling better slowly. Patient feels she can bend more easily without severe abdominal pain no BM yet. sinus tach, old records show chronic sinus tach. Platelets have decreased, no bleeding noted. Haptoglobin not decreased. Electrolytes low. 05/14 Patient is tolerating clear liquid diet. Has abdominal pain. Vapes but does not want a nicotine patch. electrolytes improved potassium still low will replete. A good bowel movement earlier this morning. Review of Systems: denies headache/fever/chills/vomiting/chest pain/cough/dyspnea/diarrhea. Otherwise see above. Constitutional Vitals: Vital Signs Temp Pulse Resp BP Pulse Ox 98.1 F 124 H 14 137/86 97 05/14/21 04:22 05/13/21 08:00 05/14/21 06:00 05/14/21 06:00 05/14/21 06:00 Period Temp Pulse Resp BP Sys/Epps Pulse Ox Last 24 Hr 98.1 F-100.4 F 124 14-31 114-152/72-101 96-99 Intake and Output 08/21/21 08/22/21 08/22/21 21:59 05:59 13:59 Intake Total 1840 180 Output Total 1325 801 Balance 515 -621 Weight 57.289 kg Intake & Output: Intake & Output 05/13/21 05/14/21 05/14/21 21:59 05:59 13:59 Intake Total 1840 180 Output Total 1325 801 Balance 515 -621 Weight 57.289 kg Intake: Oral 1840 180 Output: Void Amount 1325 800 # of times incontinent of urine 1 Other: Meal Lunch Percent of Meal Consumed 0% Feeding Ability Total Assistance Urine Appearance Clear Clear Urine Color Dark Yellow Bright Yellow Urine Odor Normal # Voids 1 Exam: General: Alert, Awake, No acute Distress Eyes/N/T: EOMI, Head/Neck: neck supple, CV: RRR, No murmurs, Pulm: Clear b/l, no wheezing/rhonchi/rales Abd: mildly distended, generalized tenderness, +BSx4 Ext: no clubbing/cyanosis/edema Neuro: Alert, no focal deficits, moves all extremities, Skin: warm/dry OBJ DATA Labs CBC & Chem 7: 05/14/21 05:31 05/14/21 05:31 Labs: Abnormal Lab Results 05/14/21 05/13/21 05/13/21 05:31 08:45 08:45 WBC RBC 3.03 L Hgb 10.2 L Hct 29.0 L RDW 15.7 H Plt Count 74 L MPV 11.1 H Neut % (Auto) Lymph % (Auto) Lymph # (Auto) Band Neutrophils % Lymphocytes % WBC Morphology Dohle Bodies Platelet Estimate RBC Morphology Hypochromasia Poikilocytosis Anisocytosis Macrocytosis Haptoglobin 214 H D-Dimer > 20.0 H Potassium Chloride Carbon Dioxide Anion Gap BUN Creatinine Glucose Uric Acid Calcium Phosphorus Magnesium Total Bilirubin Direct Bilirubin GGT AST ALT Alkaline Phosphatase Lactate Dehydrogenase C-Reactive Protein Total Protein Albumin Triglycerides Lipase 229 H 05/13/21 05/13/21 05/12/21 05:25 05:24 15:27 WBC 4.3 L RBC 3.20 L 3.33 L Hgb 10.4 L Hct 30.2 L 32.0 L RDW 15.8 H 16.3 H Plt Count 44 L* 57 L MPV 12.1 H 11.6 H Neut % (Auto) 81.5 H Lymph % (Auto) 13.0 L Lymph # (Auto) 0.91 L Band Neutrophils % 25 H Lymphocytes % 13 L WBC Morphology Abnormal A Dohle Bodies Few A Platelet Estimate Markedly decreased A RBC Morphology Abnormal A Hypochromasia Poikilocytosis Anisocytosis 1+ A Macrocytosis Haptoglobin D-Dimer Potassium 2.6 L* Chloride Carbon Dioxide Anion Gap BUN 3 L Creatinine 0.4 L Glucose 201 H Uric Acid Calcium 7.8 L Phosphorus 0.4 L Magnesium 1.4 L Total Bilirubin 1.7 H Direct Bilirubin 0.7 H GGT 181 H AST 43 H ALT Alkaline Phosphatase Lactate Dehydrogenase 404 H C-Reactive Protein Total Protein 4.9 L Albumin 2.6 L Triglycerides Lipase 05/12/21 05/12/21 05/12/21 05:36 05:36 05:36 WBC RBC Hgb Hct RDW 16.1 H Plt Count 53 L MPV 10.5 H Neut % (Auto) Lymph % (Auto) Lymph # (Auto) Band Neutrophils % 33 H Lymphocytes % 2 L WBC Morphology Dohle Bodies Platelet Estimate Decreased A RBC Morphology Abnormal A Hypochromasia Rare A Poikilocytosis Few A Anisocytosis 1+ A Macrocytosis Few A Haptoglobin D-Dimer Potassium Chloride Carbon Dioxide Anion Gap BUN Creatinine Glucose Uric Acid Calcium Phosphorus Magnesium Total Bilirubin Direct Bilirubin GGT AST ALT Alkaline Phosphatase Lactate Dehydrogenase C-Reactive Protein 14.60 H Total Protein Albumin Triglycerides Lipase 1030 H 05/12/21 05/11/21 05/11/21 05:36 05:31 05:31 WBC RBC Hgb Hct RDW Plt Count MPV Neut % (Auto) Lymph % (Auto) Lymph # (Auto) Band Neutrophils % Lymphocytes % WBC Morphology Dohle Bodies Platelet Estimate RBC Morphology Hypochromasia Poikilocytosis Anisocytosis Macrocytosis Haptoglobin D-Dimer Potassium Chloride 111 H Carbon Dioxide 6 L* 8 L* Anion Gap 27.0 H 30.0 H BUN Creatinine 1.2 H Glucose 171 H 200 H Uric Acid 8.1 H Calcium 8.1 L 8.1 L Phosphorus 1.3 L Magnesium Total Bilirubin 1.3 H Direct Bilirubin 0.5 H 0.8 H GGT 270 H 418 H AST 51 H 80 H ALT 69 H Alkaline Phosphatase 136 H Lactate Dehydrogenase 404 H 316 H C-Reactive Protein 0.90 H Total Protein 5.4 L Albumin 3.0 L Triglycerides 237 H 353 H Lipase Meds: Medications Clonazepam (Clonazepam 0.5 Mg Tablet) 0.5 mg PO TID [facility] Last Admin: 05/13/21 20:09 Dose: 0.5 mg Documented by: Clonidine HCl (Clonidine Hcl 0.1 Mg Tablet) 0.1 mg PO Q4HP PRN PRN Reason: ALC Last Admin: 05/13/21 20:09 Dose: 0.1 mg Documented by: Dextrose (Dextrose 50% 50 Ml Vial) 0 ml IV UD PRN PRN Reason: Hypoglycemia Diagnostic Test (Pha) (Accu-Chek 1 Each Strip) 1 each FS Q6 [facility] Last Admin: 05/14/21 05:30 Dose: 1 each Documented by: Folic Acid (Folic Acid 1 Mg Tablet) 1 mg PO DAILY [facility] Last Admin: 05/13/21 08:18 Dose: 1 mg Documented by: Fondaparinux (Fondaparinux Sodium 2.5 Mg/0.5 Ml Syringe) 2.5 mg SQ DAILY [facility] Glucose (Dextrose 31 Gm Oral.Susp) 15 gm PO PRN PRN PRN Reason: Hypoglycemia Hydromorphone HCl (Hydromorphone 0.5 Mg/0.5 Ml Syringe) 0.5 mg IV Q1HP PRN; Protocol PRN Reason: Per Pain Protocol Last Admin: 05/14/21 01:03 Dose: 0.5 mg Documented by: Thiamine HCl 100 mg/ Sodium (Chloride) 51 mls @ 50 mls/hr IV DAILY [facility] Last Infusion: 05/13/21 09:33 Dose: Infused Documented by: Insulin Human Lispro (Insulin Lispro 1 Unit/0.01 Ml Unit) 0 unit SQ Q6 [facility]; Protocol Last Admin: 05/14/21 05:31 Dose: Not Given Documented by: Lorazepam (Lorazepam 2 Mg/Ml Vial) 0 mg IV Q4HP PRN; Protocol PRN Reason: Alcohol Withdrawal Last Admin: 05/12/21 21:52 Dose: 2 mg Documented by: Metoclopramide HCl (Metoclopramide 10 Mg/2 Ml Vial) 10 mg IV Q6HP PRN PRN Reason: Nausea And Vomiting Metoprolol Tartrate (Metoprolol Tartrate 25 Mg Tablet) 25 mg PO BID [facility] Last Admin: 05/13/21 20:09 Dose: 25 mg Documented by: Naloxone HCl (Naloxone Hcl 0.4 Mg/Ml Vial) 0.4 mg IV Q10M PRN PRN Reason: Opiate Reversal Ondansetron HCl (Ondansetron 4 Mg/2 Ml Vial) 4 mg IV Q4HP PRN; Protocol PRN Reason: Nausea And Vomiting Promethazine HCl (Promethazine 25 Mg/Ml Vial) 12.5 mg IV Q6HP PRN; Protocol PRN Reason: Nausea And Vomiting Sodium Chloride (0.9 % Sodium Chloride 10 Ml Syringe) 10 ml IV Q8 [facility] Last Admin: 05/14/21 05:31 Dose: 10 ml Documented by: Sodium Chloride (0.9 % Sodium Chloride 10 Ml Syringe) 10 ml IV Q12 [facility] Last Admin: 05/13/21 20:10 Dose: 10 ml Documented by: A/P Narrative A/P Narrative: A: #Moderate to severe acute alcoholic pancreatitis: -improving #Severe alcohol use disorder & Withdrawal: improved #ALAN: resolved #AG Metabolic acidosis: 2/2 Lactic acidosis & alcohol intoxication and alcoholic ketoacidosis: -resolved #SIRS: improved #Chronic sinus Tach per trend from old labs: may start BB #Thrombocytopenia: 128>>44 -HIT 4T score low prob but give severity of drop will send for HIT ab, Hgb stable, haptoglobin wnl -no schistocytes on smear #Hyperglycemia: a1c 4.4 #Hypophos/kalemia/magnesemia: #Tobacco abuse: #Substance use disorder: -Cocaine use -hepatitis panel neg #Fatty Liver w/transaminitis: improving #Macrocytosis: 2/2 etoh chronic #Anxiety: on clonazepam at home Plan: -on clear diet, advance to full -pain control -replete electrolytes -send HIT ab -SSI -etoh/substance/tobacco cessation counseling -DVT ppx: d/c'd lovenox, to Fondaparinux (hold if plt <50k) Time Spent With Patient Time: Total time spent is greater than 50% in coordination of care (as documented) at patient's floor/unit and/or counseling patient:
[2021-05-14 08:27] LABS: ALT/SGPT 26 U/L (<40); AST/SGOT 40 U/L (<32); Albumin 2.7 gm/dL (3.2-5.2); Albumin/Globulin Ratio 1.1 (1.0-2.3); Alkaline Phosphatase 78 U/L (39-117); Bilirubin,Direct 0.7 mg/dL (<0.3); Bilirubin,Total 1.2 mg/dL (0.1-1.0); Blood Urea Nitrogen 3 mg/dL (6-20); Calcium 8.2 mg/dL (8.6-10.4); Carbon Dioxide 30 mmol/L (22-30); Chloride 97 mmol/L (96-108); Globulin 2.4 gm/dL (2.2-3.7); Glomerular Filtration Rate 139; Glucose 142 mg/dL (70-105); Lactate Dehydrogenase 383 U/L (135-225); Phosphorous 2.8 mg/dL (2.5-4.5); Triglycerides 107 mg/dL (<150)
[2021-05-14] MEDS: THIAMINE 100 MG in 0.9 % SODIUM CHLORIDE 50 ML IV SCH (08:32)
[2021-05-14 08:37] LABS: Anisocytosis 1+ (None Seen); Band Neutrophils % 25 % (0-10); Eosinophils % (Manual) 2 % (0-7); Lymphocytes % 12 % (15-49); Monocytes % (Manual) 10 % (1-12); Platelet Estimate DECREASED (Normal); RBC Morphology ABNORMAL (Normal); Segmented Neutrophils % 51 % (38-78)
[2021-05-14] MEDS: clonazePAM 0.5 MG TABLET PO SCH (08:37)
[2021-05-14] MEDS: FOLIC ACID 1 MG TABLET PO SCH (08:37)
[2021-05-14] MEDS: cloNIDine HCL 0.1 MG TABLET PO PRN (08:37)
[2021-05-14] MEDS: METOPROLOL TARTRATE 25 MG TABLET PO SCH ×2 (08:37→21:37)
[2021-05-14] MEDS ORDERED: POTASSIUM CHLORIDE 40 MEQ in DEXTROSE 5% IN WATER 500 ML IV ONE (08:38)
[2021-05-14] MEDS ORDERED: POTASSIUM CHLORIDE 20 MEQ TABLET PO ONE (08:38)
[2021-05-14] MEDS ORDERED: FONDAPARINUX SODIUM 2.5 MG/0.5 ML SYRINGE SQ SCH (09:00)
[2021-05-14] MEDS ORDERED: clonazePAM 0.5 MG TABLET PO PRN (09:19)
[2021-05-14] MEDS ORDERED: cloNIDine HCL 0.1 MG TABLET PO PRN (09:53)
[2021-05-14] MEDS ORDERED: LORazepam 2 MG/ML VIAL IV PRN (09:53)
[2021-05-14] MEDS ORDERED: NALOXONE HCL 0.4 MG/ML VIAL IV PRN (09:53)
[2021-05-14] MEDS ORDERED: ONDANSETRON 4 MG/2 ML VIAL IV PRN (09:53)
[2021-05-14] MEDS ORDERED: DEXTROSE 31 GM ORAL.SUSP PO PRN (09:53)
[2021-05-14] MEDS ORDERED: DEXTROSE 50% 50 ML VIAL IV PRN (09:53)
[2021-05-14] MEDS ORDERED: METOCLOPRAMIDE 10 MG/2 ML VIAL IV PRN (09:53)
[2021-05-14] MEDS ORDERED: PROMETHAZINE 25 MG/ML VIAL IV PRN (09:53)
[2021-05-14] MEDS ORDERED: INSULIN LISPRO 1 UNIT/0.01 ML UNIT SQ SCH (11:30)
[2021-05-14] MEDS: clonazePAM 0.5 MG TABLET PO PRN (21:38)
[2021-05-15] MEDS: HYDROmorphone 0.5 MG/0.5 ML SYRINGE IV PRN ×4 (01:32→22:14)
[2021-05-15] MEDS: 0.9 % SODIUM CHLORIDE 10 ML SYRINGE IV SCH ×6 (02:46→20:17)
--- NOTE | 2021-05-15 07:04 | Internal Med Progress Note ---
SUBJECTIVE Subjective Patient information: Note initiated : 05/15/21 at 7:03 am Service Date, if different from initiated Date: [] Patient: Leanne Turcios 30 y/o F admitted on 05/11/21 for Shortness of breath. Chief Complaint: [] Interval history: Interval history: History of present illness: Ms. Turcios is a 30 year old female with a history of severe alcohol use disorder, alcoholic liver disease, suicidal ideation who presented to the ED with abdominal pain and was found to have acute pancreatitis. Additionally, the patient had an acute kidney injury, lactic acidosis, and met SIRS criteria. CT abdomen/pelvis without contrast was consiste nt with acute pancreatitis. The patient endorsed heavy alcohol consumption, she thought her last drink was the day before presenting to the ED. Hospital medicine was consulted for hospital admission. 05/12 Patient says she slept well. Has abdominal pain that continues. Has nausea. Denies chest pain or shortness of breath. Patient uses cocaine on occasion. But denies other drug use. Has some mild bruising over her body and says she got an wrestling match with a friend. On the CT abdomen pelvis it mentions a history of TTP which she denies. 05/13 Patient feeling better slowly. Patient feels she can bend more easily without severe abdominal pain no BM yet. sinus tach, old records show chronic sinus tach. Platelets have decreased, no bleeding noted. Haptoglobin not decreased. Electrolytes low. 05/14 Patient is tolerating clear liquid diet. Has abdominal pain. Vapes but does not want a nicotine patch. electrolytes improved potassium still low will replete. A good bowel movement earlier this morning. 05/15 Abdominal pain waxes and wanes, tolerating full liquid. No other complaints. Platelets stable. Potassium low this morning but improving. Review of Systems: denies headache/fever/chills/vomiting/chest pain/cough/dyspnea/diarrhea. Otherwise see above. Constitutional Vitals: Vital Signs Temp Pulse Resp BP Pulse Ox 98.8 F 90 18 131/86 98 05/15/21 04:00 05/15/21 04:00 05/15/21 04:00 05/15/21 04:00 05/15/21 04:00 Period Temp Pulse Resp BP Sys/Epps Pulse Ox Last 24 Hr 97.4 F-98.8 F 90-92 14-20 118-134/66-86 97-100 Intake and Output 05/14/21 05/15/21 05/15/21 21:59 05:59 13:59 Intake Total 1840 1200 Output Total 1 1000 Balance 1839 200 Weight 57.289 kg Intake & Output: Intake & Output 05/14/21 05/15/21 05/15/21 21:59 05:59 13:59 Intake Total 1840 1200 Output Total 1 1000 Balance 1839 200 Weight 57.289 kg Intake: IV 520 Potassium Chloride 40 Meq In 520 Dextrose 5% in Water 500 ml @ 130 mls/hr IV ONCE ONE Rx#: [id number] Oral 1320 1200 Output: Void Amount 1000 # of times incontinent of urine 1 Other: Stool Size Moderate # Voids 1 2 # Bowel Movements 1 Exam: General: Alert, Awake, No acute Distress Eyes/N/T: EOMI, Head/Neck: neck supple, CV: RRR, No murmurs, Pulm: Clear b/l, no wheezing/rhonchi/rales Abd: soft, generalized tenderness, +BSx4 Ext: no clubbing/cyanosis/edema Neuro: Alert, no focal deficits, moves all extremities, Skin: warm/dry OBJ DATA Labs CBC & Chem 7: 05/15/21 06:00 05/15/21 06:00 Labs: Abnormal Lab Results 05/14/21 05/14/21 05/14/21 05:31 05:31 05:31 WBC RBC 3.03 L Hgb 10.2 L Hct 29.0 L RDW 15.7 H Plt Count 74 L MPV 11.1 H Neut % (Auto) Lymph % (Auto) Lymph # (Auto) Band Neutrophils % 25 H Lymphocytes % 12 L WBC Morphology Dohle Bodies Platelet Estimate Decreased A RBC Morphology Abnormal A Hypochromasia Poikilocytosis Anisocytosis 1+ A Macrocytosis Haptoglobin D-Dimer Potassium 2.6 L* Chloride Carbon Dioxide Anion Gap BUN 3 L Creatinine 0.4 L Glucose 142 H Uric Acid 2.0 L Calcium 8.2 L Phosphorus Magnesium Total Bilirubin 1.2 H Direct Bilirubin 0.7 H GGT 171 H AST 40 H Lactate Dehydrogenase 383 H C-Reactive Protein Total Protein 5.1 L Albumin 2.7 L Triglycerides Lipase 117 H 05/13/21 05/13/21 05/13/21 08:45 08:45 05:25 WBC 4.3 L RBC 3.20 L Hgb 10.4 L Hct 30.2 L RDW 15.8 H Plt Count 44 L* MPV 12.1 H Neut % (Auto) Lymph % (Auto) Lymph # (Auto) Band Neutrophils % 25 H Lymphocytes % 13 L WBC Morphology Abnormal A Dohle Bodies Few A Platelet Estimate Markedly decreased A RBC Morphology Abnormal A Hypochromasia Poikilocytosis Anisocytosis 1+ A Macrocytosis Haptoglobin 214 H D-Dimer > 20.0 H Potassium Chloride Carbon Dioxide Anion Gap BUN Creatinine Glucose Uric Acid Calcium Phosphorus Magnesium Total Bilirubin Direct Bilirubin GGT AST Lactate Dehydrogenase C-Reactive Protein Total Protein Albumin Triglycerides Lipase 229 H 05/13/21 05/12/21 05/12/21 05:24 15:27 05:36 WBC RBC 3.33 L Hgb Hct 32.0 L RDW 16.3 H Plt Count 57 L MPV 11.6 H Neut % (Auto) 81.5 H Lymph % (Auto) 13.0 L Lymph # (Auto) 0.91 L Band Neutrophils % Lymphocytes % WBC Morphology Dohle Bodies Platelet Estimate RBC Morphology Hypochromasia Poikilocytosis Anisocytosis Macrocytosis Haptoglobin D-Dimer Potassium 2.6 L* Chloride Carbon Dioxide Anion Gap BUN 3 L Creatinine 0.4 L Glucose 201 H Uric Acid Calcium 7.8 L Phosphorus 0.4 L Magnesium 1.4 L Total Bilirubin 1.7 H Direct Bilirubin 0.7 H GGT 181 H AST 43 H Lactate Dehydrogenase 404 H C-Reactive Protein Total Protein 4.9 L Albumin 2.6 L Triglycerides Lipase 1030 H 05/12/21 05/12/21 05/12/21 05:36 05:36 05:36 WBC RBC Hgb Hct RDW 16.1 H Plt Count 53 L MPV 10.5 H Neut % (Auto) Lymph % (Auto) Lymph # (Auto) Band Neutrophils % 33 H Lymphocytes % 2 L WBC Morphology Dohle Bodies Platelet Estimate Decreased A RBC Morphology Abnormal A Hypochromasia Rare A Poikilocytosis Few A Anisocytosis 1+ A Macrocytosis Few A Haptoglobin D-Dimer Potassium Chloride 111 H Carbon Dioxide 6 L* Anion Gap 27.0 H BUN Creatinine Glucose 171 H Uric Acid Calcium 8.1 L Phosphorus 1.3 L Magnesium Total Bilirubin Direct Bilirubin 0.5 H GGT 270 H AST 51 H Lactate Dehydrogenase 404 H C-Reactive Protein 14.60 H Total Protein 5.4 L Albumin 3.0 L Triglycerides 237 H Lipase Meds: Medications Clonazepam (Clonazepam 0.5 Mg Tablet) 0.5 mg PO TID PRN PRN Reason: Anxiety Last Admin: 05/14/21 21:38 Dose: 0.5 mg Documented by: Clonidine HCl (Clonidine Hcl 0.1 Mg Tablet) 0.1 mg PO Q4HP PRN PRN Reason: ALC Dextrose (Dextrose 50% 50 Ml Vial) 0 ml IV UD PRN PRN Reason: Hypoglycemia Diagnostic Test (Pha) (Accu-Chek 1 Each Strip) 1 each FS [facility] Last Admin: 05/14/21 21:35 Dose: 1 each Documented by: Folic Acid (Folic Acid 1 Mg Tablet) 1 mg PO DAILY NORRIS Fondaparinux (Fondaparinux Sodium 2.5 Mg/0.5 Ml Syringe) 2.5 mg SQ DAILY NORRIS Glucose (Dextrose 31 Gm Oral.Susp) 15 gm PO PRN PRN PRN Reason: Hypoglycemia Hydromorphone HCl (Hydromorphone 0.5 Mg/0.5 Ml Syringe) 0.5 mg IV Q1HP PRN; Protocol PRN Reason: Per Pain Protocol Last Admin: 05/15/21 01:32 Dose: 0.5 mg Documented by: Thiamine HCl 100 mg/ Sodium (Chloride) 51 mls @ 50 mls/hr IV DAILY [facility] Insulin Human Lispro (Insulin Lispro 1 Unit/0.01 Ml Unit) 0 unit SQ [facility]; Protocol Last Admin: 05/14/21 21:36 Dose: 2 unit Documented by: Lorazepam (Lorazepam 2 Mg/Ml Vial) 0 mg IV Q4HP PRN; Protocol PRN Reason: Alcohol Withdrawal Metoclopramide HCl (Metoclopramide 10 Mg/2 Ml Vial) 10 mg IV Q6HP PRN PRN Reason: Nausea And Vomiting Metoprolol Tartrate (Metoprolol Tartrate 25 Mg Tablet) 25 mg PO BID [facility] Last Admin: 05/14/21 21:37 Dose: 25 mg Documented by: Naloxone HCl (Naloxone Hcl 0.4 Mg/Ml Vial) 0.4 mg IV Q10M PRN PRN Reason: Opiate Reversal Ondansetron HCl (Ondansetron 4 Mg/2 Ml Vial) 4 mg IV Q4HP PRN; Protocol PRN Reason: Nausea And Vomiting Promethazine HCl (Promethazine 25 Mg/Ml Vial) 12.5 mg IV Q6HP PRN; Protocol PRN Reason: Nausea And Vomiting Sodium Chloride (0.9 % Sodium Chloride 10 Ml Syringe) 10 ml IV Q12 [facility] Last Admin: 05/14/21 21:39 Dose: 10 ml Documented by: Sodium Chloride (0.9 % Sodium Chloride 10 Ml Syringe) 10 ml IV Q8 [facility] Last Admin: 05/15/21 05:42 Dose: 10 ml Documented by: A/P Narrative A/P Narrative: A: #Moderate to severe acute alcoholic pancreatitis: -improving #Severe alcohol use disorder & Withdrawal: improved #ALAN: resolved #AG Metabolic acidosis: 2/2 Lactic acidosis & alcohol intoxication and alcoholic ketoacidosis: -resolved #SIRS: improved #Chronic sinus Tach per trend from old labs: may start BB #Thrombocytopenia: stable -HIT 4T score low prob but give severity of drop will send for HIT ab, Hgb stable, haptoglobin wnl -no schistocytes on smear #Hyperglycemia: a1c 4.4 #Hypophos/kalemia/magnesemia: #Tobacco abuse: #Substance use disorder: -Cocaine use -hepatitis panel neg #Fatty Liver w/transaminitis: improving #Macrocytosis: 2/2 etoh chronic #Anxiety: on clonazepam at home Plan: -on full liquid, advance as tolerated to low fat -pain control -replete electrolytes -send HIT ab -SSI -etoh/substance/tobacco cessation counseling -DVT ppx: d/c'd lovenox, to Fondaparinux (hold if plt <50k) Time Spent With Patient Time: Total time spent is greater than 50% in coordination of care (as documented) at patient's floor/unit and/or counseling patient:
[2021-05-15 07:34] LABS: Hematocrit 27.6 % (34.1-44.9); Hemoglobin 9.6 g/dL (11.2-15.7); Mean Cell Volume 97.9 fL (80.0-100.0); Mean Corpuscular HGB Conc 34.8 g/dL (31.0-36.0); Mean Platelet Volume 10.9 fL (7.4-10.4); Platelet Count 99 K/mcL (140-440); RBC 2.82 M/mcL (3.59-5.38); Red Cell Distribution Width 15.6 % (11.5-14.5)
[2021-05-15] MEDS: INSULIN LISPRO 1 UNIT/0.01 ML UNIT SQ SCH ×4 (07:40→20:16)
[2021-05-15 07:41] LABS: ALT/SGPT 30 U/L (<40); AST/SGOT 50 U/L (<32); Albumin 2.6 gm/dL (3.2-5.2); Albumin/Globulin Ratio 1.1 (1.0-2.3); Alkaline Phosphatase 112 U/L (39-117); Bilirubin,Direct 0.4 mg/dL (<0.3); Bilirubin,Total 0.8 mg/dL (0.1-1.0); Blood Urea Nitrogen 2 mg/dL (6-20); Calcium 8.4 mg/dL (8.6-10.4); Carbon Dioxide 29 mmol/L (22-30); Chloride 102 mmol/L (96-108); Globulin 2.3 gm/dL (2.2-3.7); Glomerular Filtration Rate 153; Glucose 160 mg/dL (70-105); Lactate Dehydrogenase 367 U/L (135-225); Phosphorous 2.2 mg/dL (2.5-4.5); Triglycerides 87 mg/dL (<150); Uric Acid 1.7 mg/dL (2.5-8.0)
[2021-05-15] MEDS ORDERED: MAGNESIUM SULFATE 8.12 MEQ in DEXTROSE 5% IN WATER 50 ML IV ONE (08:08)
[2021-05-15] MEDS ORDERED: POTASSIUM CHLORIDE 20 MEQ TABLET PO ONE (08:08)
[2021-05-15] MEDS ORDERED: POTASSIUM PHOSPHATE 40 MEQ in DEXTROSE 5% IN WATER 500 ML IV ONE (08:08)
[2021-05-15 08:55] LABS: Anisocytosis 2+ (None Seen); Band Neutrophils % 2 % (0-10); Eosinophils % (Manual) 1 % (0-7); Lymphocytes % 28 % (15-49); Monocytes % (Manual) 18 % (1-12); Platelet Estimate DECREASED (Normal); RBC Morphology ABNORMAL (Normal); Segmented Neutrophils % 51 % (38-78)
[2021-05-15] MEDS ORDERED: THIAMINE 100 MG/ML VIAL ONE (08:55)
[2021-05-15] MEDS ORDERED: THIAMINE 100 MG in 0.9 % SODIUM CHLORIDE 50 ML IV SCH (09:00)
[2021-05-15] MEDS: FONDAPARINUX SODIUM 2.5 MG/0.5 ML SYRINGE SQ SCH (09:21)
[2021-05-15] MEDS: FOLIC ACID 1 MG TABLET PO SCH (09:22)
[2021-05-15] MEDS: METOPROLOL TARTRATE 25 MG TABLET PO SCH ×2 (09:22→20:15)
--- NOTE | 2021-05-15 10:49 | Discharge Summary ---
Discharge Provider Provider Patient information: Note initiated : 05/15/21 at 10:48 am Service Date, if different from initiated Date: [] Patient: Leanne Turcios 30 y/o F admitted on 05/11/21 for Shortness of breath. Chief Complaint: [] Date of admission: 05/11/21 01:58 Discharge date: 05/16/21 Primary care physician: Marita So PA-C Consults: 05/11/21 Consult to Physician [CONS] Stat Comment: Consulting Provider: Evans Coulter Reason For Exam: Physician to Consult Discharge Meds Discharge Medications Home Medications buprenorphine 8 mg-naloxone 2 mg sublingual tablet See Rx Instructions .ROUTE .COMPLEX 12/02/19 [History Confirmed 05/11/21 Last Taken Unknown] Depo Provera See Rx Instructions .ROUTE .COMPLEX 03/15/20 [History Confirmed 05/13/21 Last Taken 02/21/21] clonazepam 0.5 mg PO TID 05/11/21 [History Confirmed 05/11/21 Last Taken Unknown] hydrocodone-acetaminophen 1 tab PO Q6H PRN #20 tab 05/16/21 [Rx Last Taken Unknown] COURSE Hospital Course Hospital course: Interval history: Interval history: History of present illness: Ms. Turcios is a 30 year old female with a history of severe alcohol use disorder, alcoholic liver disease, suicidal ideation who presented to the ED with abdominal pain and was found to have acute pancreatitis. Additionally, the patient had an acute kidney injury, lactic acidosis, and met SIRS criteria. CT abdomen/pelvis without contrast was consistent with acute pancreatitis. The patient endorsed heavy alcohol consumption, she thought her last drink was the day before presenting to the ED. Hospital medicine was consulted for hospital admission. 05/12 Patient says she slept well. Has abdominal pain that continues. Has nausea. Denies chest pain or shortness of breath. Patient uses cocaine on occasion. But denies other drug use. Has some mild bruising over her body and says she got an wrestling match with a friend. On the CT abdomen pelvis it mentions a history of TTP which she denies. 05/13 Patient feeling better slowly. Patient feels she can bend more easily without severe abdominal pain no BM yet. sinus tach, old records show chronic sinus tach. Platelets have decreased, no bleeding noted. Haptoglobin not decreased. Electrolytes low. 05/14 Patient is tolerating clear liquid diet. Has abdominal pain. Vapes but does not want a nicotine patch. electrolytes improved potassium still low will replete. A good bowel movement earlier this morning. 05/15 Abdominal pain waxes and wanes, tolerating full liquid. No other complaints. Platelets stable. Potassium low this morning but improving. 05/16 Patient still with abdominal pain that waxes and wanes. Laboratory essentially normalized including lipase and electrolytes. Tolerating full liquid diet well. Offered for her to follow-up with Dr. Marylou hickey but patient said she would decide later. A: #Moderate to severe acute alcoholic pancreatitis: -improving #Severe alcohol use disorder & Withdrawal: improved #ALAN: resolved #AG Metabolic acidosis: 2/2 Lactic acidosis & alcohol intoxication and alcoholic ketoacidosis: -resolved #SIRS: improved #Chronic sinus Tach per trend from old labs: may start BB #Thrombocytopenia: stable -HIT 4T score low prob but give severity of drop will send for HIT ab, Hgb stable, haptoglobin wnl -no schistocytes on smear #Hyperglycemia: a1c 4.4 #Hypophos/kalemia/magnesemia: #Tobacco abuse: #Substance use disorder: -Cocaine use -hepatitis panel neg #Fatty Liver w/transaminitis: improving #Macrocytosis: 2/2 etoh chronic #Anxiety: on clonazepam at home Discharge diagnosis: Moderate alcoholic pancreatitis alcohol withdrawal acute kidney injury anio Secondary discharge diagnosis: Anion gap acidosis SIRS chronic sinus tach thrombocytopenia hyperglycemia electrolyte abnormalities tobacco abuse substance abuse with cocaine fatty liver macrocytosis anxiety Time Spent with Patient Time attestation: Total time spent providing and/or coordinating discharge services: Time spent: Greater than 30 minutes EXAM Constitutional Vitals: Temp Pulse Resp BP Pulse Ox 98.9 F 93 H 18 126/89 95 05/15/21 08:00 05/15/21 08:00 05/15/21 08:00 05/15/21 08:00 05/15/21 08:00 Discharge Data Data Completed and Pending Labs on day of discharge: Labs from last 24 hours 05/15/21 05/15/21 06:00 06:00 WBC 4.0 L RBC 2.82 L Hgb 9.6 L Hct 27.6 L MCV 97.9 MCH 34.0 MCHC 34.8 RDW 15.6 H Plt Count 99 L MPV 10.9 H Seg Neutrophils % 51 Band Neutrophils % 2 Lymphocytes % 28 Monocytes % (Manual) 18 H Eosinophils % (Manual) 1 Platelet Estimate Decreased A RBC Morphology Abnormal A Anisocytosis 2+ A Sodium 139 Potassium 3.0 L Chloride 102 Carbon Dioxide 29 Anion Gap 8.0 BUN 2 L Creatinine 0.3 L GFR Calculation 153 Glucose 160 H Uric Acid 1.7 L Calcium 8.4 L Phosphorus 2.2 L Magnesium 1.7 Total Bilirubin 0.8 Direct Bilirubin 0.4 H GGT 211 H AST 50 H ALT 30 Alkaline Phosphatase 112 Lactate Dehydrogenase 367 H Total Protein 4.9 L Albumin 2.6 L Globulin 2.3 Albumin/Globulin Ratio 1.1 Triglycerides 87 Preliminary micro results at discharge 05/10/21 21:52 Blood Culture - Preliminary Blood 05/10/21 21:30 Blood Culture - Preliminary Blood Discharge Plan Patient/Caregiver Discharge Instructions Activity: increase activity as tolerated Diet: Low Fat Prescriptions: New hydrocodone-acetaminophen 5-325 mg tablet 1 tab PO Q6H PRN (Reason: pain) Qty: 20 RF: 0 Continued buprenorphine-naloxone 8-2 mg tablet, sublingual See Rx Instructions .ROUTE .COMPLEX RF: 0 Depo Provera See Rx Instructions .ROUTE .COMPLEX RF: 0 clonazepam 0.5 mg tablet 0.5 mg PO TID RF: 0 Follow Up Plan Follow up with: Marita So PA-C [Primary Care Provider] - Patient Disposition: Home, Self-Care Prognosis: Serious Overall status at discharge: patient is progressing back to baseline Discharge Orders: Discharge Order (Routine); Ordered 05/16/21 Ordered By: Matty Capps
[2021-05-16] MEDS: HYDROmorphone 0.5 MG/0.5 ML SYRINGE IV PRN ×3 (01:53→08:32)
[2021-05-16] MEDS: 0.9 % SODIUM CHLORIDE 10 ML SYRINGE IV SCH ×2 (05:54→09:00)
[2021-05-16 07:38] LABS: Hematocrit 32.5 % (34.1-44.9); Hemoglobin 10.6 g/dL (11.2-15.7); Mean Cell Volume 99.4 fL (80.0-100.0); Mean Corpuscular HGB Conc 32.6 g/dL (31.0-36.0); Mean Platelet Volume 10.7 fL (7.4-10.4); Platelet Count 155 K/mcL (140-440); RBC 3.27 M/mcL (3.59-5.38); Red Cell Distribution Width 15.8 % (11.5-14.5); WBC 3.9 K/mcL (4.5-11.0)
[2021-05-16 08:21] LABS: ALT/SGPT 42 U/L (<40); AST/SGOT 58 U/L (<32); Albumin 2.9 gm/dL (3.2-5.2); Albumin/Globulin Ratio 1.2 (1.0-2.3); Alkaline Phosphatase 144 U/L (39-117); Bilirubin,Direct 0.3 mg/dL (<0.3); Bilirubin,Total 0.6 mg/dL (0.1-1.0); Blood Urea Nitrogen 2 mg/dL (6-20); Calcium 8.9 mg/dL (8.6-10.4); Carbon Dioxide 28 mmol/L (22-30); Chloride 97 mmol/L (96-108); Globulin 2.4 gm/dL (2.2-3.7); Glomerular Filtration Rate 153; Glucose 162 mg/dL (70-105); Lactate Dehydrogenase 423 U/L (135-225); Phosphorous 4.4 mg/dL (2.5-4.5); Triglycerides 93 mg/dL (<150); Uric Acid 0.9 mg/dL (2.5-8.0)
[2021-05-16] MEDS: FONDAPARINUX SODIUM 2.5 MG/0.5 ML SYRINGE SQ SCH (08:31)
[2021-05-16] MEDS: FOLIC ACID 1 MG TABLET PO SCH (08:31)
[2021-05-16] MEDS: METOPROLOL TARTRATE 25 MG TABLET PO SCH (08:31)
[2021-05-16] MEDS: clonazePAM 0.5 MG TABLET PO PRN (08:31)
[2021-05-16] MEDS: INSULIN LISPRO 1 UNIT/0.01 ML UNIT SQ SCH ×2 (08:31→11:43)
[2021-05-16] MEDS ORDERED: THIAMINE 100 MG TABLET PO SCH (09:00)
[2021-05-16 09:45] LABS: Anisocytosis 1+ (None Seen); Band Neutrophils % 6 % (0-10); Eosinophils % (Manual) 1 % (0-7); Lymphocytes % 28 % (15-49); Monocytes % (Manual) 19 % (1-12); Myelocytes % 1 %; Nucleated Red Blood Cells 1 % (0-0); Platelet Estimate NORMAL (Normal); RBC Morphology ABNORMAL (Normal); Segmented Neutrophils % 45 % (38-78)
--- NOTE | 2021-05-27 09:10 | EKG ---
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
--- NOTE | 2021-05-27 10:03 | EKG ---
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
== END 2021-05-16 12:18 | disposition home or self-care (01) | DRG 439 ==
LOC: ED 20:11 → ICU 05-11 01:58 → MEDSUR 05-14 17:29
PROVIDERS: ADMIT Internal Medicine; ATTEND Internal Medicine

== ENCOUNTER 2023-12-25 07:31 | Inpatient (IN) ==
[2023-12-25] MEDS ORDERED: IOPAMIDOL 100 ML BOTTLE IV ONE (07:32)
[2023-12-25] MEDS: ONDANSETRON 4 MG ODT TABLET SL ONE (08:37)
[2023-12-25] MEDS: 0.9 % SODIUM CHLORIDE 1,000 ML IV ONE (09:22)
[2023-12-25] MEDS: ONDANSETRON 4 MG/2 ML VIAL IV ONE ×2 (09:24→10:33)
[2023-12-25] MEDS: ONDANSETRON 4 MG ODT TABLET ONE (09:25)
[2023-12-25] MEDS: morphine 2 MG/ML VIAL IV PRN (09:25)
[2023-12-25 10:21] LABS: ALT/SGPT 152 U/L (<40); AST/SGOT 144 U/L (<32); Albumin 4.7 gm/dL (3.2-5.2); Albumin/Globulin Ratio 1.2 (1.0-2.3); Alkaline Phosphatase 172 U/L (39-117); Bilirubin,Total 1.1 mg/dL (0.1-1.0); Blood Urea Nitrogen 14 mg/dL (6-20); Calcium 9.7 mg/dL (8.6-10.4); Carbon Dioxide 8 mmol/L (22-30); Chloride 87 mmol/L (96-108); Globulin 3.8 gm/dL (2.2-3.7); Glomerular Filtration Rate 84; Glucose 342 mg/dL (70-105)
[2023-12-25 10:47] LABS: Basophils # (Auto) 0.01 K/mcL (0.00-0.30); Basophils % (Auto) 0.1 % (0.0-2.0); Eosinophils # (Auto) 0 K/mcL (0.00-0.70); Eosinophils % (Auto) 0 % (0.0-7.0); Hematocrit 49.1 % (34.1-44.9); Lymphocytes # (Auto) 0.36 K/mcL (1.50-4.80); Lymphocytes % (Auto) 2.8 % (15.5-49.0); Mean Corpuscular HGB Conc 32.6 g/dL (31.0-36.0); Mean Platelet Volume 10.7 fL (8.8-12.5); Monocytes # (Auto) 0.67 K/mcL (0.10-0.90); Monocytes % (Auto) 5.2 % (1.0-12.0); Neutrophils % (Auto) 91.7 % (38.0-78.0); Platelet Count 104 K/mcL (140-440); RBC 5.01 M/mcL (3.59-5.38); Red Cell Distribution Width 14.7 % (11.5-14.5); WBC 12.9 K/mcL (4.5-11.0)
[2023-12-25 10:50] LABS: HCG,Serum Negative
[2023-12-25 11:13] LABS: Appearance,Urine Slightly Cloudy (Clear); Bilirubin,Urine Moderate mg/dL (Negative); Color,Urine Yellow; Culture Indicated,Urine No; Glucose,Urine (UA) 100 mg/dL (Negative); Ketones,Urine >=160 mg/dL (Negative); Leukocyte Esterase,Urine Negative /uL (Negative); Nitrate,Urine Negative (Negative); Protein,Urine 100 mg/dL (Negative); Specific Gravity,Urine >= 1.030 (1.000-1.035); Urine Blood Moderate ery/mcL (Negative); Urine Granular Cast 1 /lph (0-0); Urine Hyaline Cast 1 /lph (0-2); Urine RBC 2 /hpf (0-3); Urine Squamous Epithelial Cell 3 /hpf (0-4); Urine WBC 0 /hpf (0-4); Urobilinogen,Urine Normal
[2023-12-25] MEDS: HYDROmorphone 0.5 MG/0.5 ML SYRINGE IV ONE ×2 (11:19→13:18)
[2023-12-25] MEDS: METOCLOPRAMIDE 10 MG/2 ML VIAL IV ONE (11:19)
[2023-12-25] MEDS: DEXTROSE 5%-NS 1,000 ML IV SCH ×2 (12:01→15:14)
[2023-12-25] MEDS ORDERED: METOCLOPRAMIDE 10 MG/2 ML VIAL IV PRN (14:18)
[2023-12-25] MEDS ORDERED: POLYETHYLENE GLYCOL 3350 17 GM PACKET PO PRN (14:18)
[2023-12-25] MEDS ORDERED: SENNOSIDES 1 TABLET PO PRN (14:18)
[2023-12-25] MEDS ORDERED: DEXTROSE 31 GM ORAL.SUSP PO PRN (14:18)
[2023-12-25] MEDS ORDERED: LORazepam 2 MG/ML VIAL IV PRN (14:18)
[2023-12-25] MEDS ORDERED: IPRATROPIUM/ALBUTEROL 3 ML AMPUL.NEB NEB PRN (14:18)
[2023-12-25] MEDS ORDERED: DEXTROSE 50% 50 ML VIAL IV PRN (14:18)
[2023-12-25] MEDS ORDERED: DIAZEPAM 10 MG/2 ML SYRINGE IV PRN (14:36)
[2023-12-25] MEDS: ONDANSETRON 4 MG/2 ML VIAL IV PRN (15:12)
[2023-12-25] MEDS: morphine 4 MG/ML VIAL IV PRN (15:17)
[2023-12-25] MEDS: LABETALOL HCL 20 MG/4 ML VIAL IV PRN (15:18)
[2023-12-25] MEDS: THIAMINE 100 MG in 0.9 % SODIUM CHLORIDE 50 ML IV SCH (16:19)
[2023-12-25] MEDS: INSULIN LISPRO 1 UNIT/0.01 ML UNIT SQ SCH (17:22)
[2023-12-25 18:41] LABS: Hemoglobin A1C 5.3 % Hgb (4.0-6.0)
[2023-12-25] MEDS: DOCUSATE SODIUM 100 MG CAPSULE PO SCH (20:34)
[2023-12-26] MEDS: 0.9 % SODIUM CHLORIDE 1,000 ML IV SCH (08:21)
[2023-12-26 08:49] LABS: ALT/SGPT 86 U/L (<40); AST/SGOT 84 U/L (<32); Albumin 3.6 gm/dL (3.2-5.2); Albumin/Globulin Ratio 1.2 (1.0-2.3); Alkaline Phosphatase 126 U/L (39-117); Bilirubin,Direct 0.5 mg/dL (<0.3); Bilirubin,Total 0.9 mg/dL (0.1-1.0); Blood Urea Nitrogen 5 mg/dL (6-20); Calcium 8.5 mg/dL (8.6-10.4); Carbon Dioxide 15 mmol/L (22-30); Chloride 96 mmol/L (96-108); Globulin 2.9 gm/dL (2.2-3.7); Glomerular Filtration Rate 119; Glucose 318 mg/dL (70-105); Lactate Dehydrogenase 329 U/L (135-225); Phosphorous 0.7 mg/dL (2.5-4.5); Triglycerides 95 mg/dL (<150); Uric Acid 4.6 mg/dL (2.5-8.0)
[2023-12-26] MEDS: ENOXAPARIN 40 MG/0.4 ML SYRINGE SQ SCH (09:05)
[2023-12-26] MEDS: FOLIC ACID 1 MG TABLET PO SCH (09:05)
[2023-12-26] MEDS: MULTIVIT,THER IRON,CA,FA & MIN 1 TABLET PO SCH (09:05)
[2023-12-26] MEDS: SODIUM PHOSPHATE 30 MMOL in DEXTROSE 5% IN WATER 500 ML IV ONE (10:09)
[2023-12-26] MEDS: HYDROmorphone 1 MG/ML SYRINGE IV PRN (10:24)
[2023-12-26] MEDS: PHOSPHORUS 250 MG TABLET PO SCH (10:24)
[2023-12-26 10:40] LABS: Basophils # (Auto) 0.01 K/mcL (0.00-0.30); Basophils % (Auto) 0.2 % (0.0-2.0); Eosinophils # (Auto) 0.02 K/mcL (0.00-0.70); Eosinophils % (Auto) 0.3 % (0.0-7.0); Hemoglobin 14.7 g/dL (11.2-15.7); Lymphocytes # (Auto) 0.67 K/mcL (1.50-4.80); Lymphocytes % (Auto) 10.4 % (15.5-49.0); Mean Cell Volume 94.7 fL (80.0-100.0); Mean Corpuscular HGB Conc 34.2 g/dL (31.0-36.0); Mean Platelet Volume 11.8 fL (8.8-12.5); Monocytes # (Auto) 0.39 K/mcL (0.10-0.90); Neutrophils % (Auto) 82.2 % (38.0-78.0); Platelet Count 72 K/mcL (140-440); RBC 4.54 M/mcL (3.59-5.38); Red Cell Distribution Width 15.3 % (11.5-14.5); WBC 6.5 K/mcL (4.5-11.0)
[2023-12-26 11:04] LABS: Appearance,Urine Slightly Cloudy (Clear); Bilirubin,Urine Moderate mg/dL (Negative); Color,Urine Amber; Culture Indicated,Urine No; Glucose,Urine (UA) Negative (Negative); Ketones,Urine 40 mg/dL (Negative); Leukocyte Esterase,Urine Trace /uL (Negative); Nitrate,Urine Negative (Negative); Protein,Urine 30 mg/dL (Negative); Urine Blood Trace-lysed ery/mcL (Negative); Urine RBC 0 /hpf (0-3); Urine Squamous Epithelial Cell 13 /hpf (0-4); Urine WBC 1 /hpf (0-4); Urobilinogen,Urine Normal
[2023-12-26 13:57] LABS: Amphetamine Screen,Urine Suspect positive; Barbiturate Screen,Urine None detected; Benzodiazepines Screen,Urine None detected; Cannabinoid Screen,Urine None detected; Cocaine Screen,Urine None detected; Opiate Screen,Urine Suspect Positive; Oxycodone, Urine Screen None detected; Phencyclidine Screen,Urine None detected
[2023-12-27] MEDS: cloNIDine HCL 0.1 MG TABLET PO PRN (01:38)
[2023-12-27 06:48] LABS: ALT/SGPT 76 U/L (<40); AST/SGOT 83 U/L (<32); Albumin 3.3 gm/dL (3.2-5.2); Albumin/Globulin Ratio 1.2 (1.0-2.3); Alkaline Phosphatase 118 U/L (39-117); Bilirubin,Direct 0.6 mg/dL (<0.3); Bilirubin,Total 1.1 mg/dL (0.1-1.0); Blood Urea Nitrogen 2 mg/dL (6-20); Calcium 8.4 mg/dL (8.6-10.4); Carbon Dioxide 22 mmol/L (22-30); Chloride 92 mmol/L (96-108); Globulin 2.8 gm/dL (2.2-3.7); Glomerular Filtration Rate 127; Glucose 236 mg/dL (70-105); Lactate Dehydrogenase 257 U/L (135-225); Phosphorous 1.7 mg/dL (2.5-4.5); Triglycerides 97 mg/dL (<150); Uric Acid 3.4 mg/dL (2.5-8.0)
[2023-12-27] MEDS: POTASSIUM CHLORIDE 20 MEQ/10 ML VIAL IV ONE (07:32)
[2023-12-27] MEDS: POTASSIUM CHLORIDE 20 MEQ TABLET PO PRN (07:33)
[2023-12-27] MEDS: FUROSEMIDE 20 MG/2 ML VIAL IV ONE (08:51)
[2023-12-27] MEDS: PHOSPHORUS 250 MG TABLET PO SCH (08:52)
[2023-12-27] MEDS: METOPROLOL TARTRATE 25 MG TABLET PO SCH (08:52)
[2023-12-27] MEDS: NEUTRA PHOS 1 PACKET PO SCH (08:52)
[2023-12-27] MEDS: MAGNESIUM SULFATE 2 GM/50 ML BAG IV PRN (09:06)
[2023-12-27] MEDS: DIAZEPAM 10 MG/2 ML SYRINGE IV PRN (10:30)
[2023-12-27] MEDS: SODIUM PHOSPHATE 30 MMOL in DEXTROSE 5% IN WATER 500 ML IV ONE (12:49)
[2023-12-27] MEDS: POTASSIUM CHLORIDE 40 MEQ in DEXTROSE 5% IN WATER 500 ML IV PRN (16:55)
[2023-12-27] MEDS: chlordiazePOXIDE 25 MG CAPSULE PO PRN (20:13)
[2023-12-28 06:46] LABS: ALT/SGPT 51 U/L (<40); AST/SGOT 43 U/L (<32); Albumin 2.7 gm/dL (3.2-5.2); Alkaline Phosphatase 96 U/L (39-117); Bilirubin,Direct 0.4 mg/dL (<0.3); Bilirubin,Total 0.7 mg/dL (0.1-1.0); Globulin 2.4 gm/dL (2.2-3.7)
[2023-12-28 06:51] LABS: Albumin/Globulin Ratio 1.1 (1.0-2.3); Blood Urea Nitrogen < 2 mg/dL (6-20); Calcium 8.1 mg/dL (8.6-10.4); Carbon Dioxide 26 mmol/L (22-30); Chloride 91 mmol/L (96-108); Glomerular Filtration Rate 136; Glucose 277 mg/dL (70-105); Lactate Dehydrogenase 218 U/L (135-225); Triglycerides 71 mg/dL (<150); Uric Acid 2.1 mg/dL (2.5-8.0)
[2023-12-28] MEDS: FUROSEMIDE 40 MG/4 ML VIAL IV ONE (08:40)
[2023-12-28] MEDS: SODIUM CHLORIDE 1 GM TABLET PO SCH (08:42)
[2023-12-28] MEDS: ALBUMIN HUMAN 12.5 GM/50 ML VIAL IV ONE (08:43)
[2023-12-28] MEDS: SODIUM PHOSPHATE 30 MMOL in DEXTROSE 5% IN WATER 500 ML IV ONE (09:20)
[2023-12-29 06:27] LABS: ALT/SGPT 49 U/L (<40); AST/SGOT 47 U/L (<32); Albumin/Globulin Ratio 1.2 (1.0-2.3); Alkaline Phosphatase 109 U/L (39-117); Bilirubin,Direct 0.3 mg/dL (<0.3); Bilirubin,Total 0.7 mg/dL (0.1-1.0); Blood Urea Nitrogen < 2 mg/dL (6-20); Calcium 8.5 mg/dL (8.6-10.4); Carbon Dioxide 29 mmol/L (22-30); Chloride 95 mmol/L (96-108); Globulin 2.6 gm/dL (2.2-3.7); Glomerular Filtration Rate 150; Glucose 196 mg/dL (70-105); Lactate Dehydrogenase 222 U/L (135-225); Phosphorous 3.4 mg/dL (2.5-4.5); Triglycerides 92 mg/dL (<150); Uric Acid 1.7 mg/dL (2.5-8.0)
[2023-12-29 07:54] LABS: Basophils # (Auto) 0.02 K/mcL (0.00-0.30); Basophils % (Auto) 0.4 % (0.0-2.0); Eosinophils # (Auto) 0.07 K/mcL (0.00-0.70); Eosinophils % (Auto) 1.3 % (0.0-7.0); Hemoglobin 11.7 g/dL (11.2-15.7); Lymphocytes % (Auto) 22.9 % (15.5-49.0); Mean Cell Volume 99.4 fL (80.0-100.0); Mean Corpuscular HGB Conc 32.5 g/dL (31.0-36.0); Mean Platelet Volume 10.9 fL (8.8-12.5); Monocytes # (Auto) 0.99 K/mcL (0.10-0.90); Monocytes % (Auto) 18.9 % (1.0-12.0); Neutrophils % (Auto) 55.7 % (38.0-78.0); Platelet Count 112 K/mcL (140-440); RBC 3.62 M/mcL (3.59-5.38); Red Cell Distribution Width 15.4 % (11.5-14.5); WBC 5.2 K/mcL (4.5-11.0)
[2023-12-29] MEDS: HYDROcodone/APAP 5/325MG TABLET PO PRN (10:18)
[2023-12-30 06:40] LABS: ALT/SGPT 41 U/L (<40); AST/SGOT 45 U/L (<32); Albumin 2.8 gm/dL (3.2-5.2); Albumin/Globulin Ratio 1.1 (1.0-2.3); Alkaline Phosphatase 113 U/L (39-117); Bilirubin,Direct 0.3 mg/dL (<0.3); Bilirubin,Total 0.5 mg/dL (0.1-1.0); Blood Urea Nitrogen 2 mg/dL (6-20); Calcium 8.6 mg/dL (8.6-10.4); Carbon Dioxide 28 mmol/L (22-30); Chloride 96 mmol/L (96-108); Globulin 2.5 gm/dL (2.2-3.7); Glomerular Filtration Rate 150; Glucose 113 mg/dL (70-105); Lactate Dehydrogenase 248 U/L (135-225); Phosphorous 4.2 mg/dL (2.5-4.5); Triglycerides 79 mg/dL (<150); Uric Acid 1.8 mg/dL (2.5-8.0)
[2023-12-30] MEDS: POTASSIUM CHLORIDE 20 MEQ TABLET PO PRN (09:05)
[2023-12-30] MEDS: SUCRALFATE 1 GM/10 ML ORAL.SUSP PO ONE (12:24)
[2023-12-31 07:09] LABS: Amphetamine Screen Negative (Cutoff=500)
[2023-12-31 10:32] LABS: Opiate Screen Positive ng/mL (Cutoff=300)
== END 2023-12-30 15:25 | disposition home or self-care (01) | DRG 439 ==
LOC: ED 07:31 → MEDSUR 14:02 → ICU 15:47 → MEDSUR 12-28 14:43
PROVIDERS: ADMIT Internal Medicine; ATTEND Internal Medicine

== ENCOUNTER 2024-03-03 09:46 | Inpatient (IN) ==
[2024-03-03] MEDS ORDERED: IOPAMIDOL 100 ML BOTTLE IV ONE (09:47)
[2024-03-03] MEDS: 0.9 % SODIUM CHLORIDE 1,000 ML IV ONE ×2 (10:00→12:16)
[2024-03-03] MEDS: ONDANSETRON 4 MG/2 ML VIAL IV ONE ×2 (10:14→10:33)
[2024-03-03 10:22] LABS: Basophils # (Auto) 0.02 K/mcL (0.00-0.30); Basophils % (Auto) 0.1 % (0.0-2.0); Eosinophils # (Auto) 0 K/mcL (0.00-0.70); Eosinophils % (Auto) 0 % (0.0-7.0); Hematocrit 49.9 % (34.1-44.9); Hemoglobin 16.2 g/dL (11.2-15.7); Lymphocytes # (Auto) 1.34 K/mcL (1.50-4.80); Lymphocytes % (Auto) 9.6 % (15.5-49.0); Mean Cell Volume 100.8 fL (80.0-100.0); Mean Corpuscular HGB Conc 32.5 g/dL (31.0-36.0); Mean Platelet Volume 10.2 fL (8.8-12.5); Monocytes # (Auto) 1.05 K/mcL (0.10-0.90); Monocytes % (Auto) 7.5 % (1.0-12.0); Neutrophils % (Auto) 82.4 % (38.0-78.0); Platelet Count 283 K/mcL (140-440); RBC 4.95 M/mcL (3.59-5.38); Red Cell Distribution Width 15.1 % (11.5-14.5); WBC 13.9 K/mcL (4.5-11.0)
[2024-03-03] MEDS: KETOROLAC 30 MG/ML VIAL IV ONE (10:33)
[2024-03-03] MEDS: HALOPERIDOL LACTATE 5 MG/ML VIAL IV ONE (10:33)
[2024-03-03 10:53] LABS: ALT/SGPT 61 U/L (<40); AST/SGOT 137 U/L (<32); Albumin 5.1 gm/dL (3.2-5.2); Albumin/Globulin Ratio 1.5 (1.0-2.3); Alkaline Phosphatase 147 U/L (39-117); Bilirubin,Total 0.8 mg/dL (0.1-1.0); Blood Urea Nitrogen 14 mg/dL (6-20); Calcium 9.4 mg/dL (8.6-10.4); Carbon Dioxide 6 mmol/L (22-30); Chloride 92 mmol/L (96-108); Globulin 3.4 gm/dL (2.2-3.7); Glomerular Filtration Rate 54; Glucose 245 mg/dL (70-105)
[2024-03-03] MEDS: POTASSIUM CHLORIDE 20 MEQ, MAGNESIUM SULFATE 16.24 MEQ, THIAMINE 100 MG, MVI, ADULT NO.... IV SCH (11:06)
[2024-03-03] MEDS: DEXTROSE 5%-NS 1,000 ML IV SCH (11:10)
[2024-03-03] MEDS: POTASSIUM CHLORIDE 20 MEQ, MAGNESIUM SULFATE 16.24 MEQ, THIAMINE 100 MG, MVI, ADULT NO.... IV ONE (11:23)
[2024-03-03] MEDS: morphine 10 MG/ML VIAL IV ONE (11:23)
[2024-03-03] MEDS: LORazepam 2 MG/ML VIAL IV ONE (11:35)
[2024-03-03] MEDS: INSULIN REGULAR, HUMAN 1 UNIT/0.01 ML UNIT SQ ONE (12:16)
[2024-03-03] MEDS: CAPSAICIN 0.025% CREAM.TOP 60GM TOPICAL ONE (13:06)
[2024-03-03 13:15] LABS: Appearance,Urine Clear (Clear); Bilirubin,Urine Small mg/dL (Negative); Color,Urine Yellow; Culture Indicated,Urine No; Glucose,Urine (UA) Negative (Negative); Ketones,Urine 80 mg/dL (Negative); Leukocyte Esterase,Urine Negative /uL (Negative); Nitrate,Urine Negative (Negative); PH,Urine 5.5 (5.0-9.0); Protein,Urine 100 mg/dL (Negative); Specific Gravity,Urine >= 1.030 (1.000-1.035); Urine Blood Small ery/mcL (Negative); Urine Hyaline Cast 10 /lph (0-2); Urine RBC 0 /hpf (0-3); Urine Squamous Epithelial Cell 3 /hpf (0-4); Urine WBC 0 /hpf (0-4); Urobilinogen,Urine Normal
[2024-03-03 14:43] LABS: Phosphorous 1.7 mg/dL (2.5-4.5)
[2024-03-03] MEDS: THIAMINE IV ONE (14:43)
[2024-03-03] MEDS: SODIUM CHLORIDE 0.9% IV ONE (14:43)
[2024-03-03 14:49] LABS: Blood Urea Nitrogen 12 mg/dL (6-20); Calcium 7.7 mg/dL (8.6-10.4); Carbon Dioxide 6 mmol/L (22-30); Chloride 102 mmol/L (96-108); Glomerular Filtration Rate 74; Glucose 138 mg/dL (70-105)
[2024-03-03 14:57] LABS: Alcohol, Urine None Detected; Amphetamine Screen,Urine Suspect positive; Barbiturate Screen,Urine None detected; Benzodiazepines Screen,Urine None detected; Cannabinoid Screen,Urine None detected; Cocaine Screen,Urine None detected; Opiate Screen,Urine Suspect Positive; Oxycodone, Urine Screen None detected; Phencyclidine Screen,Urine None detected
[2024-03-03 15:24] LABS: Beta Hydroxybutyrate 9.99 mmol/L (<0.27)
[2024-03-03] MEDS: LORazepam 2 MG/ML VIAL IV PRN (15:42)
[2024-03-03] MEDS: DEXTROSE 5%-LR 1,000 ML IV SCH (15:50)
[2024-03-03] MEDS: SODIUM PHOSPHATE 15 MMOL in DEXTROSE 5% IN WATER 250 ML IV ONE (16:08)
[2024-03-03 16:44] LABS: Creatine Kinase 40 U/L (24-170)
[2024-03-03 16:52] LABS: Blood Urea Nitrogen 12 mg/dL (6-20); Calcium 8.2 mg/dL (8.6-10.4); Carbon Dioxide 8 mmol/L (22-30); Chloride 102 mmol/L (96-108); Glomerular Filtration Rate 84; Glucose 123 mg/dL (70-105)
[2024-03-03] MEDS: PANTOPRAZOLE 40 MG TABLET PO SCH (17:20)
[2024-03-03] MEDS ORDERED: DEXTROSE 50% 50 ML VIAL IV PRN (17:55)
[2024-03-03] MEDS: NICOTINE 14 MG PATCH TOPICAL SCH (17:58)
[2024-03-03] MEDS: GABAPENTIN 100 MG CAPSULE PO ONE (18:46)
[2024-03-03] MEDS: INSULIN REGULAR, HUMAN 1 UNIT/0.01 ML UNIT IV ONE (19:08)
[2024-03-03] MEDS: DEXTROSE 50% 50 ML SYRINGE IV ONE (19:15)
[2024-03-03] MEDS: ONDANSETRON 4 MG/2 ML VIAL IV PRN (19:23)
[2024-03-03] MEDS: DEXTROSE 50% 50 ML VIAL IV ONE (19:27)
[2024-03-03] MEDS: INSULIN REGULAR, HUMAN 1 UNIT/0.01 ML UNIT ONE (19:27)
[2024-03-03] MEDS: 0.9 % SODIUM CHLORIDE 10 ML SYRINGE IV SCH (20:39)
[2024-03-03 20:46] LABS: Blood Urea Nitrogen 9 mg/dL (6-20); Calcium 7.8 mg/dL (8.6-10.4); Carbon Dioxide 8 mmol/L (22-30); Chloride 101 mmol/L (96-108); Glomerular Filtration Rate 84; Glucose 219 mg/dL (70-105)
[2024-03-03] MEDS: GABAPENTIN 300 MG CAPSULE PO SCH (21:03)
[2024-03-03] MEDS: HEPARIN 5,000 UNIT/ML VIAL SQ SCH (21:03)
[2024-03-03] MEDS ORDERED: 0.9 % SODIUM CHLORIDE 10 ML SYRINGE IV SCH (22:00)
[2024-03-03] MEDS: CALCIUM GLUCONATE 4.65 MEQ/10 ML VIAL IV ONE (22:19)
[2024-03-04 01:12] LABS: Blood Urea Nitrogen 6 mg/dL (6-20); Calcium 8.6 mg/dL (8.6-10.4); Carbon Dioxide 10 mmol/L (22-30); Chloride 95 mmol/L (96-108); Glomerular Filtration Rate 113; Glucose 257 mg/dL (70-105)
[2024-03-04 06:28] LABS: Basophils # (Auto) 0 K/mcL (0.00-0.30); Basophils % (Auto) 0 % (0.0-2.0); Eosinophils # (Auto) 0 K/mcL (0.00-0.70); Eosinophils % (Auto) 0 % (0.0-7.0); Hematocrit 39.7 % (34.1-44.9); Hemoglobin 13.3 g/dL (11.2-15.7); Lymphocytes # (Auto) 0.69 K/mcL (1.50-4.80); Lymphocytes % (Auto) 10.7 % (15.5-49.0); Mean Cell Volume 97.8 fL (80.0-100.0); Mean Corpuscular HGB Conc 33.5 g/dL (31.0-36.0); Mean Platelet Volume 10.7 fL (8.8-12.5); Monocytes # (Auto) 0.42 K/mcL (0.10-0.90); Monocytes % (Auto) 6.5 % (1.0-12.0); Neutrophils % (Auto) 82.8 % (38.0-78.0); Platelet Count 115 K/mcL (140-440); RBC 4.06 M/mcL (3.59-5.38); WBC 6.4 K/mcL (4.5-11.0)
[2024-03-04 06:30] LABS: Phosphorous 0.9 mg/dL (2.5-4.5)
[2024-03-04 06:38] LABS: ALT/SGPT 32 U/L (<40); AST/SGOT 55 U/L (<32); Albumin/Globulin Ratio 1.8 (1.0-2.3); Alkaline Phosphatase 102 U/L (39-117); Bilirubin,Total 1.4 mg/dL (0.1-1.0); Blood Urea Nitrogen 4 mg/dL (6-20); Calcium 8.7 mg/dL (8.6-10.4); Carbon Dioxide 15 mmol/L (22-30); Chloride 97 mmol/L (96-108); Globulin 2.2 gm/dL (2.2-3.7); Glomerular Filtration Rate 113; Glucose 295 mg/dL (70-105)
[2024-03-04 06:55] LABS: Beta Hydroxybutyrate 3.29 mmol/L (<0.27)
[2024-03-04] MEDS ORDERED: INSULIN REGULAR, HUMAN 1 UNIT/0.01 ML UNIT SQ SCH (07:30)
[2024-03-04] MEDS: INSULIN REGULAR, HUMAN 1 UNIT/0.01 ML UNIT IV ONE ×2 (07:41→10:18)
[2024-03-04] MEDS: INSULIN GLARGINE, HUMAN 1 UNIT/0.01 ML SQ ONE (07:42)
[2024-03-04] MEDS: SODIUM PHOSPHATE 30 MMOL in DEXTROSE 5% IN WATER 500 ML IV ONE (08:14)
[2024-03-04 08:53] LABS: Blood Urea Nitrogen 3 mg/dL (6-20); Calcium 8.7 mg/dL (8.6-10.4); Carbon Dioxide 18 mmol/L (22-30); Chloride 97 mmol/L (96-108); Glomerular Filtration Rate 119; Glucose 291 mg/dL (70-105)
[2024-03-04] MEDS: DEXTROSE 5%-LR 1,000 ML IV SCH (09:07)
[2024-03-04] MEDS: THIAMINE 500 MG in 0.9 % SODIUM CHLORIDE 50 ML IV SCH (09:15)
[2024-03-04] MEDS: NEUTRA PHOS 1 PACKET PO SCH (09:16)
[2024-03-04 17:27] LABS: Phosphorous 2.4 mg/dL (2.5-4.5)
[2024-03-04] MEDS: LORazepam 2 MG/ML VIAL IV PRN (19:06)
[2024-03-04] MEDS ORDERED: LORazepam 2 MG/ML VIAL IV PRN (19:14)
[2024-03-05] MEDS: LORazepam 2 MG/ML VIAL IV PRN (00:24)
[2024-03-05 06:16] LABS: Basophils # (Auto) 0.01 K/mcL (0.00-0.30); Basophils % (Auto) 0.3 % (0.0-2.0); Eosinophils # (Auto) 0.03 K/mcL (0.00-0.70); Eosinophils % (Auto) 0.8 % (0.0-7.0); Hemoglobin 11.7 g/dL (11.2-15.7); Lymphocytes # (Auto) 1.17 K/mcL (1.50-4.80); Lymphocytes % (Auto) 30.8 % (15.5-49.0); Mean Cell Volume 96.3 fL (80.0-100.0); Mean Corpuscular HGB Conc 34.4 g/dL (31.0-36.0); Mean Platelet Volume 10.6 fL (8.8-12.5); Monocytes # (Auto) 0.24 K/mcL (0.10-0.90); Monocytes % (Auto) 6.3 % (1.0-12.0); Neutrophils % (Auto) 61.8 % (38.0-78.0); Platelet Count 87 K/mcL (140-440); RBC 3.53 M/mcL (3.59-5.38); Red Cell Distribution Width 14.9 % (11.5-14.5); WBC 3.8 K/mcL (4.5-11.0)
[2024-03-05 06:26] LABS: ALT/SGPT < 5 U/L (<40); AST/SGOT 21 U/L (<32); Albumin 3.7 gm/dL (3.2-5.2); Albumin/Globulin Ratio 1.7 (1.0-2.3); Alkaline Phosphatase 95 U/L (39-117); Bilirubin,Total 0.6 mg/dL (0.1-1.0); Blood Urea Nitrogen 16 mg/dL (6-20); Carbon Dioxide 22 mmol/L (22-30); Chloride 105 mmol/L (96-108); Globulin 2.2 gm/dL (2.2-3.7); Glomerular Filtration Rate 119; Glucose 107 mg/dL (70-105)
[2024-03-07] MEDS ORDERED: THIAMINE 100 MG in 0.9 % SODIUM CHLORIDE 50 ML IV SCH (09:00)
[2024-03-09 07:08] LABS: Opiate Screen Positive ng/mL (Cutoff=300)
[2024-03-09 18:08] LABS: Amphetamine Screen Positive
== END 2024-03-05 09:45 | disposition left against medical advice (07) | DRG 439 ==
LOC: ED 09:46 → ICU 15:20
PROVIDERS: ADMIT Student in an Organized Health Care Education/Training Program; ATTEND Student in an Organized Health Care Education/Training Program